=== PATIENT | female | born 1965 | race Caucasian/White ===

== ENCOUNTER → 2018-02-04 12:45 | Outpatient (CLI) | payer OTHER, SELFPAY | PROVIDERS: Family Provider Family Medicine; PCP Family Medicine; Visit Provider Family Medicine | DX: N92.6 Irregular menstruation, unspecified (principal) | CPT/HCPCS: 76830; 93976 ==

== ENCOUNTER → 2018-02-14 09:57 | Outpatient (CLI) | payer OTHER, SELFPAY ==
[2018-02-14 12:49] LABS: Thyroid Stim Hormone (TSH) 1.58 uIU/mL (0.358-3.74)
== END ==
PROVIDERS: Family Provider Family Medicine; PCP Family Medicine; Visit Provider Family Medicine
DX: R63.5 Abnormal weight gain (principal)
CPT/HCPCS: 36415; 84443

== ENCOUNTER 2018-03-08 05:44 | Day surgery (SDC) | payer OTHER, SELFPAY ==
[2018-03-08 06:05] VITALS: BP 112/69; PULSE 70; RESP 16; TEMP 36.4; O2SAT 99; BMI 23.3
[2018-03-08 06:20] LABS: Internal QC Validated? YES +Cl - CLEAR BKGD; Pregnancy, Urine Negative Negative
--- NOTE | 2018-03-08 06:43 | HP.PCM_ITS ---
Past Medical/Surgical History - Planned Operation Planned Operative Procedure/s: COLONOSCOPY Date of Operative Procedure: 03/08/18 Permit Signed: No S.O.S: No Is This Patient Having a Total Joint: No - Previous Hospitalizations/Surgeries HX of Surgeries: BACK SURGERY. APPENDECTOMY Any Problems With Anesthesia: No You/Your Family Experience Fever (Hyperthermia) With Anes: No Cholinesterase deficiency: No - Cardiovascular Hx Chest Pain within Last 2 months: No Hx of Irregular Heartbeat and/or Afib: No Hx Heart Attack: No Hx Congestive Heart Failure: No Hx Rheumatic Fever: No Hx Hypertension: No Hx Internal Defibrillator: No Hx Pacemaker: No Hx Cardiac Catheterization: No Hx Cardiac Surgery/Stents/Etc.: No Hx Stress Test: No HX Edema: No Hx Pain in Legs when Walking/Leg Cramps: No - Respiratory Chronic Cough: No HX of Shortness of Breath: No Hoarseness: No Hx Chronic Obstructive Pulmonary Disease (COPD): No Hx Asthma: No Hx Emphysema: No Hx Sleep Apnea: No Hx Oxygen Use at Home: No Hx Respiratory Tract Infection/Cold (presently): No Do You Snore Loudly (louder than talking or can be heard): Yes Do You Often Feel Tired/ Fatigued/ Sleepy Dring Daytime?: No Has Anyone Observed You Stop Breathing During Sleep?: No Result (for STOP score): Negative Hx Smoking: Yes - RARE/ SOCIAL Smoking Status: Current some day smoker - Gastrointestinal Hx Gastroesophageal Reflux: No Hx Gastrointestinal Disorders: No Hx Gastrointestinal Bleed: No Hx Ulcer: No Hx Hiatal Hernia: No Difficulty Chewing/Swallowing: No Recent Onset of Swallowing Problems: No Special diet followed at home: No Hx Unplanned Weight Loss of 20#: No HX Unplanned Weight Gain of 20#: No - Neurological Hx Seizures: No HX Syncope/Blackout Spells/Unconsciousness: No Hx CVA/Stroke: No Hx Transient Ischemic Attacks (TIA): No Hx Multiple Sclerosis: No Hx Parkinson's Disease: No Hx Head/Neck Injury: No Hx Headaches: No Hx Back Injury/Pain: Yes - HX BACK SURGERY Recent Onset of Speech Difficulty: No Restless Legs: Yes - SOMETIMES Does patient have nerve stimulator: No Patient instructed to have device shut off: No Rep notified?: No - Blood Disorder Hx Leukemia: No Bleeding Tendencies: No Hx Deep Vein Thrombosis: No Hx High Cholesterol: No Blood Transmitted Disease: No Hx Hepatitis: No Hx Cirrhosis: No Hx Anemia: No Hx Blood Disorders: No - Reproduction : No Is Patient Lactating: No Hx Hysterectomy: No Hx Tubal Ligation: No Are You Post Menopause: No Pt Instructed Not To Have Any Sex From Now Until Surgery: Yes - Genitourinary Hx Renal Disease: No - Musculoskeletal Hx Arthritis: No Hx Rheumatoid Arthritis: No Hx Gout: No Recent Onset of an Orthopedic Problem: No - Endocrine Hx Diabetes: No Thyroid Disease: No Hx Steroid Therapy: No - Psycho/Social Hx Substance Use: No Hx Alcohol Use: Yes - WEEKENDS/ 12 PACK Hx Anxiety: No Hx Depression: No Mental Illness: No Hx Dementia: No - Miscellaneous Hx Cancer: No Recent Exposure to Contagious Disease: No Active MRSA: No Hx of C-Diff: No Any Loose Teeth: No - CROWN Allergies No Known Allergies Allergy (Verified 03/05/18 11:15) Maternal Family History: Family History (Last Reviewed 02/01/18 @ 12:12 by Kev Ortiz DO) Mother Hypertension Pacemaker No pertinent history - Discharge Is Pt Admitted From a Long-Term, or a [facility]: No Who Could Help: DAUGHTER After D/C, Where Do you Plan to Go: Return Home Patient Problems: Active and Suspected Problems (Last Reviewed 02/01/18 @ 12:12 by Kev Ortiz DO) Screening for colon cancer (Acute) - Physical Exam General: Alert, Oriented x3, Cooperative, No apparent distress HEENT: Atraumatic Lungs: Normal air movement Cardiovascular: Regular rate Abdomen: Soft, Non Tender, Non-Distended Extremities: No clubbing, No cyanosis, No edema Skin: No rashes Neurological: Cranial nerves II-XII grossly intact Vital Signs Temp Pulse Resp BP Pulse Ox 97.6 F L 70 16 112/69 99 03/08/18 06:05 03/08/18 06:05 03/08/18 06:05 03/08/18 06:05 03/08/18 06:05 Oxygen Delivery Method Room Air Weight: 157 lb 10.088 oz Body Mass Index (BMI) 23.3 Laboratory Tests Past 24 Hrs 03/08/18 05:52 Urine Test Negative Assessment/Plan All Active Problems (Last Reviewed 02/01/18 @ 12:12 by Kev Ortiz DO) Screening for colon cancer (Acute) 52 y/o F for screening colonoscopy Pt reports thais prep well and it is clear, denies hx of abd pain, +daily BM no bld, denies FH of colon cancer-- Plan for colonoscopy with possible biopsy- procedure explained and pt had no further questions. Surgery Risks - Colonoscopy I discussed with the patient the risks of the procedure: Yes Risks Include but are not Limited To: Risks include but are not limited to: Bleeding, perforation requiring further surgery, inability to complete colonoscopy requiring barium enema.
--- NOTE | 2018-03-08 07:00 | COLBX_PTH ---
PATIENT: KEVIN DE LEON LOC: EN U#:[id number] AGE/SX: 52/F ROOM: RE03/08/[address]: Dr. Raeann Rose MD : 1965 BED: DIS: 03/08/2018 SPEC #: [id number] RECD: 03/08/18 10:06 STATUS: RORY SHA #: [id number] ALISSA: 03/08/18 07:[address]: Raeann Rose DEPT: SURGICAL PATHOLOGY RECD BY: Maximo Sage ENTERED: 03/08/18 10:53 SP TYPE: COLON BX OTHR DR: Dr. Kev Ortiz, DO Tissues: A - Ascending colon B - Rectum, NOS Procedures: Surgery Specimen Level IV HEADER OPERATION: Colonoscopy ? open access (MAC) PRE-OP DIAGNOSIS: Screening TISSUE SUBMITTED: A ? Biopsy polyps ascending colon, B ? Biopsy polyp proximal rectum MICROSCOPIC DIAGNOSIS A. Ascending colon polyp, biopsy: Fragments of tubular adenoma. 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 B. Proximal rectum polyp, biopsy: Fragments of colonic mucosa with pigment laden macrophages consistent with melanosis coli. Negative for adenomatous changes. AVELINO:farhat 03/11/18 MICROSCOPIC DESCRIPTION Slides are reviewed. GROSS DESCRIPTION A - Received in fixative is one container labeled with the patient's name and designated polyp ascending colon. The specimen consists of multiple fragments of brownish soft tissue that in aggregate measure 1 x 0.6 x 0.1 cm. The specimen is totally submitted in one cassette. B - Received in fixative is one container labeled with the patient's name and designated biopsy polyp proximal rectum. The specimen consists of multiple fragments of aaron-brownish soft tissue that in aggregate measure 1 x 0.5 x 0.1 cm. The specimen is totally submitted in one cassette. / AVELINO:farhat 03/08/18 TC:1 CPT: 41608 x2
[2018-03-08 07:53] VITALS: BP 101/66; BP 112/69; RESP 85; TEMP 36.4; O2SAT 100
[2018-03-08 08:00] VITALS: BP 107/65; BP 112/69; PULSE 76; RESP 16; O2SAT 100
--- NOTE | 2018-03-08 08:01 | OP.ENDO_ITS ---
Patient Name: Martha Dias Procedure Date: 03/08/2018 6:39 AM Date of : 1965 Age: 52 Procedure: Colonoscopy Indications: Screening for colorectal malignant neoplasm Providers: Raeann Rose MD Referring MD: eKv Ortiz Medicines: Monitored Anesthesia Care Patient Profile: Last Colonoscopy: none. The patient's first colonoscopy is today. Complications: No immediate complications. Procedure: Pre-Anesthesia Assessment: - Prior to the procedure, a History and Physical was performed, and patient medications and allergies were reviewed. The patient's tolerance of previous anesthesia was also reviewed. The risks and benefits of the procedure and the sedation options and risks were discussed with the patient. All questions were answered, and informed consent was obtained. Prior Anticoagulants: The patient has taken no previous anticoagulant or antiplatelet agents. ASA Grade Assessment: II - A patient with mild systemic disease. After reviewing the risks and benefits, the patient was deemed in satisfactory condition to undergo the procedure. After I obtained informed consent, the scope was passed under direct vision. Throughout the procedure, the patient's blood pressure, pulse, and oxygen saturations were monitored continuously. The pediatric colonoscope was introduced through the anus and advanced to the cecum, identified by the ileocecal valve. The colonoscopy was somewhat difficult due to a tortuous colon. Successful completion of the procedure was aided by changing the patient to a supine position and applying abdominal pressure. The patient tolerated the procedure well. The quality of the bowel preparation was good. Scope In: 7:03:01 AM Scope Withdrawal Time 0 hours 20 minutes 59 seconds Scope Out: 7:47:18 AM Total Procedure Duration Time 0 hours 44 minutes 17 seconds Findings: The perianal and digital rectal examinations were normal. A diffuse area of melanosis was found in the entire colon. Three sessile polyps were found in the rectum (1) and ascending colon (2). The polyps were less than 5 mm in size. These polyps were removed with a cold biopsy forceps. Resection and retrieval were complete. Estimated blood loss was minimal. Impression: - Melanosis in the colon. - Three less than 5 mm polyps in the rectum and in the ascending colon, removed with a cold biopsy forceps. Resected and retrieved. Recommendation: - Repeat colonoscopy in 3 - 5 years for surveillance of multiple polyps. - If the pathology report reveals adenomatous tissue, then repeat the colonoscopy for surveillance in 3 years. - Continue present medications. Procedure Code(s): --- Professional --- 65123, Colonoscopy, flexible; with biopsy, single or multiple Diagnosis Code(s): --- Professional --- Z12.11, Encounter for screening for malignant neoplasm of colon K63.89, Other specified diseases of intestine K62.1, Rectal polyp D12.2, Benign neoplasm of ascending colon CPT copyright 2017 [employer]. All rights reserved. The codes documented in this report are preliminary and upon stripper machine operator review may be revised to meet current compliance requirements. MD Raeann Garland MD 03/08/2018 8:01:12 AM This report has been signed electronically. Number of Addenda: 0 Note Initiated On: 03/08/2018 6:39 AM
[2018-03-08 08:03] VITALS: BP 112/69; BP 120/69; PULSE 77; RESP 16; O2SAT 100
[2018-03-08 08:08] VITALS: BP 112/69; BP 119/65; PULSE 76; RESP 16; TEMP 36.7; O2SAT 100
[2018-03-08 08:21] VITALS: BP 112/69
== END 2018-03-08 08:22 | disposition home or self-care (01) ==
LOC: EN 05:44 → AC 05:45
PROVIDERS: Anesthesiology; Family Provider Family Medicine; PCP Family Medicine; Visit Provider Surgery
PROC: 0DJD8ZZ Inspection of Lower Intestinal Tract, Via Natural or Artificial Opening Endoscopic (ICD-10-PCS; CPT 45378; principal; 2018-03-08 06:55)
DX: Z12.11 Encounter for screening for malignant neoplasm of colon (principal); D12.2 Benign neoplasm of ascending colon; K63.5 Polyp of colon; K63.89 Other specified diseases of intestine; G25.81 Restless legs syndrome; F17.200 Nicotine dependence, unspecified, uncomplicated
CPT/HCPCS: 45380; 81025; 88305; J7120

== ENCOUNTER → 2018-05-29 12:01 | Outpatient (CLI) | payer OTHER, SELFPAY ==
[2018-05-02 14:20] VITALS: BMI 22.3
--- NOTE | 2018-05-29 12:03 | BI_ITS ---
MAMMOGRAPHY - BILATERAL SCREENING REASON FOR EXAM: Female, 53 years old. Routine annual screening examination. PERTINENT HISTORY: Aunt with breast cancer. TECHNIQUE: Digital bilateral breast iwona (3D mammographic acquisition) in the CC and MLO projections. 2-D mediolateral oblique (MLO) and craniocaudad (CC) views of both breasts were obtained. CAD: Full Field Digital Mammography with Computer Added Detection was performed. COMPARISON: Comparison is made with prior outside examination dated July 14, 2016. FINDINGS: Breast Composition: The breasts are heterogeneously dense, which may obscure small masses. There are no dominant masses or suspicious calcifications. No other significant abnormalities are identified. There has been no significant change since the prior study. BI/SCREENING MAMM (CAD), BILAT IMPRESSION: Stable bilateral screening mammogram. Yearly follow-up mammogram recommended. (A) ASSESSMENT CATEGORY: BIRADS Category 1: Negative. A letter regarding these results will be sent to the patient by the facility within 30 days. Approximately 10% of breast cancers are not detected by mammography. A normal mammogram should not delay biopsy of a clinically suspicious abnormality. [id number] Electronically Signed: Wes Estevez MD at 14:06 EST Tel [phone], Service support ,
--- OUTSIDE RECORDS SUMMARY | 2018-07-15 15:33 | XMS RPT_ITS ---
:1965 Author Organization OHIP Support Name Relationship Address Phone BARRETTE Unavailable [address] + [place] [address] HALEY, DEVIKA Unavailable [address] + [place] [address] ANA DIASLIE Unavailable Unavailable + [place] [address] BARRETTE Unavailable [address] + [place] [address] HALEY, DEVIKA Unavailable [address] + [place] [address] HALEYANA REYNOLDSLIE Unavailable . + [place] [address] BARRETTE Unavailable [address] + [place] [address] HALEY, DEVIKA Unavailable [address] + [place] [address] HALEYANA REYNOLDSLIE Unavailable Unavailable + BARRETTE Unavailable [address] + [place] [address] HALEY, DEVIKA Unavailable [address] + [place] [address] HALEY, ZULEMA Unavailable . + ., [place] . BARRETTE Unavailable [address] + [place] [address] HALEY, DEVIKA Unavailable [address] + [place] [address] HALEYANA REYNOLDSLIE Unavailable Unavailable + BARRETTE Unavailable [address] + [place] [address] HALEY, DEVIKA Unavailable [address] + [place] [address] HALEY, ZULEMA Unavailable Unavailable + BARRETTE Unavailable [address] + [place] [address] HALEY, DEVIKA Unavailable [address] + [place] [address] HALEY, ZULEMA Unavailable Unavailable + BARRETTE Unavailable . + [place] . HALEY, DEVIKA Unavailable [address] + [place] [address] HALEY, ZULEMA Unavailable Unavailable + BARRETTE Unavailable / + [place] . HALEY, DEVIKA Unavailable [address] + [place] [address] BARRETTE Unavailable / + [place] . HALEY, DEVIKA Unavailable [address] + [place] [address] Care Team Providers Name Role Phone Kev Ortiz Attending Unavailable Brown, Kev Primary Care Unavailable Eddi Calderon TERRITORY SALES REPRESENTATIVE-C Attending Unavailable Brown, Kev Referring Unavailable Brown, Kev Attending Unavailable Brown, Kev Referring Unavailable Brown, Kev Primary Care Unavailable Nurse, Surgery Attending Unavailable Brown, Kev Referring Unavailable Brown, Kev Attending Unavailable Brown, Kev Referring Unavailable Brown, Kev Primary Care Unavailable Eddi Calderon TERRITORY SALES REPRESENTATIVE-C Attending Unavailable Eddi Calderon TERRITORY SALES REPRESENTATIVE-C Referring Unavailable Brown, Kev Primary Care Unavailable Brown, Kev Attending Unavailable Brown, Kev Referring Unavailable Brown, Kev Primary Care Unavailable Robotham, Raeann Attending Unavailable Robotham, Raeann Referring Unavailable Brown, Kev Primary Care Unavailable Robotham, Raeann Attending Unavailable Robotham, Raeann Referring Unavailable Brown, Kev Primary Care Unavailable Robotham, Raeann Consulting Unavailable Brown, Kev Attending Unavailable Brown, Kev Referring Unavailable PROBLEMS PROBLEMS DATE TYPE CONDITION / CODE ATTENDING STATUS SOURCE 06/27/2018 Unknown Z79.899 - Other Eddi Calderon Active [facility] TERRITORY SALES REPRESENTATIVE-C Community (current) drug Hospital therapy / Repository Z79.899(ICD-10) 06/27/2018 Unknown F50.81 - Binge Eddi Calderon Active [facility] eating disorder / TERRITORY SALES REPRESENTATIVE-C Community F50.81(ICD-10) Hospital Repository 03/13/2018 Unknown Z12.11 - Encounter Rose Active [facility] for screening for Raeann [facility] malignant neoplasm [facility] colon / Repository Z12.11(ICD-10) 02/01/2018 Unknown N92.6 - Irregular Kev Ortiz Active [facility] menstruation, Community unspecified / Hospital N92.6(ICD-10) Repository 02/01/2018 Unknown Z23 - Encounter Kev Ortiz Active [place] for immunization / [facility] Z23(ICD-10) Hospital Repository 02/01/2018 Unknown R63.5 - Abnormal BrownKev Active [facility] weight gain / Community R63.5(ICD-10) Hospital Repository PROCEDURES PROCEDURES No Procedure Records FoundRESULTS RESULTS INTERNAL MEDICINE Observed: 06/28/2018 Status: F Source: [facility] OFFICE VISIT 8:44 AM [facility] REPOSITORY [facility] [address] [place] [address] [place] [address] OFFICE VISIT Date of Service: 06/27/18 MR#: [id number] Acct: [id number] Name: MARTHA DIAS Rep #: [id number] : 1965 Provider: dEdi Calderon NP Age/Sex: 53/F Location: [facility] Status: Signed Intake Vital Signs06/27/18 Body Mass Index (BMI) 22.3 06/27/18 Height 5 ft 9 in 06/27/18 Weight: 159 lb 06/27/18 Body Mass Index (BMI) 23.4 06/27/18 Blood Pressure 133/84 H Intake Visit Reasons: 6 WK FU Chief Complaint: 6 WK FU - Meds Is patient in pain?: No Allergies No Known Allergies Allergy (Verified 06/27/18 09:53) Medications norgestimate-ethinyl estradiol 0.18 mg/0.215mg/0.25mg-35 mcg(28)tablet 1 tab PO QDAY #84 tab 02/01/18 [Rx Confirmed 06/27/18] lisdexamfetamine 30 mg capsule 30 mg PO DAILY 06/27/18 [History Confirmed 06/27/18] PFSH Medical History Screening for colon cancer (Acute) Family History Mother Hypertension Pacemaker Social History Smoking Status: Current some day smoker alcohol intake: current alcohol intake frequency: holidays/special occasions only substance use type: does not use what type of physical activity do you participate in: none HPI HPI Chief Complaint: 6 WK FU - Meds Details: MARTHA DIAS, is a 53 F who presents to the office today for a follow-up of her binge eating disorder. She has a past medical history as listed above. The patient was previously started on Adderall due to her insurance not covering Vyvanse for her binge eating disorder. The patient states that the first 2 weeks she did well on the Adderall and it seemed to help with her binging, however shortly after it was no longer effective and that she still has daily episodes of binge eating. Her weight has increased by 8 pounds since a month ago as well. She denies any adverse reaction to the stimulant medication and states that other than it not working she tolerated it well. She denies any other acute concerns at this time. The patient otherwise denies any fever, chills, nausea, vomiting, shortness of breath, chest pain or pressure, palpitations, orthopnea, lower extremity edema, syncope or presyncopal episodes. ROS Const Constitutional: No chills, fatigue, fever(s), frequent falls, malaise, weakness, sleep problems or change in appetite Eyes Eyes: No blurry vision, change in vision, double vision, discharge or visual disturbances ENT ENT: No abnormal hearing, ear pain, ear pressure, tinnitus or dizziness/vertigo Resp Respiratory: No cough, shortness of breath or wheezing Cardio Cardiology: No chest pain at rest, chest pain with exertion, shortness of breath, dyspnea on exertion, generalized swelling, irregular heart rhythm, lightheadedness, orthopnea, fast heart rate or palpitations Gastro GI: No abdominal pain, change in bowel habits, constipation, diarrhea, nausea/dyspepsia or vomiting Genitourinary-Female: No difficulty urinating, burning urination, painful urination, urinary incontinence, urinary frequency, urinary urgency, urinary hesitancy, urinary retention, Frequent nighttime urination/ nocturia, sexual problems, genital lesions, abnormal vaginal bleeding, pelvic pain, vaginal dryness, vaginal odor or Vaginal Itching Musc Musculoskeletal: No joint pain, back pain, joint swelling, limited range of motion, numbness, tingling or muscle weakness Skin Skin: No change in skin color, itching, rash or wounds Breast Breast: No breast lump or breast pain Neuro Neurology: No frequent falls, weakness, visual disturbances, abnormal hearing, numbness, tingling, unsteady gait/balance, dizziness, loss of vision or memory loss Psych Psychiatric: No change in appetite, No memory loss, No anxiety, No depression, No Thoughts of harming yourself/Others Endo Endocrine: No fatigue, heat intolerance, increased thirst/drinking, increased hunger or increased urination Aller/Imm Allergy/Immunologic: No wheezing, itchy eyes or seasonal allergy symptoms Lukas/Lymp Hematologic/Lymphatic: No easy bleeding, easy bruising or enlarged lymph nodes Exam Const General: cooperative, healthy appearing Nutritional Appearance: average body habitus Orientation: oriented x3 Eyes General: appearance normal, both eyes and all related structures Neck Thyroid: thyroid normal Resp Effort AND Inspection: normal respiratory effort Auscultation: Bilateral: Clear to Auscultation Cardio Rate: regular rate Rhythm: regular rhythm GI Inspection: normal to inspection Musc Musculoskeletal: No muscle weakness Skin Hair: normal Nails: normal Extrem General: no clubbing, cyanosis or edema Psych Appearance: grossly normal Affect: anxious affect Speech and Movement: speech and movement normal Thought Process: normal Assessment AND Plan Problems 1. Binge-eating disorder, moderate F50.81 2. Long-term use of high-risk medication Z79.899 Plan Patient failed Adderall therapy and therefore will be placed back on Vyvanse for her binge eating disorder. A long-term controlled substance agreement was signed and a standing order for random drug screenings was placed as well. Drug screen done today was consistent with Adderall use. Do not suspect any signs of abuse or diversion at this time. Patient is aware that she will need to follow-up at least monthly while on this medication and may be called for random pill counts and/or random urine drug tests. This note was generated with [employer]up[employer]ediye[employer] software. It may contain incorrect words, spelling, and punctuation that were not noted in checking the note before signing. Orders Orders: Medications New: Discontinued: dextroamphetamine-amphetamine 20 mg (Adderall XR) [id number] mg PO QAM 30 caps 0RF d Reason: Order Changed Plan Detail Follow Up 1 month or sooner if needed Coding Level of Care Code Off vis,est,level 3 Diagnoses Binge-eating disorder, moderate F50.81 Long-term use of high-risk medication Z79.899 06/28/18 0844 <Electronically signed by Eddi MOCK> Date Eddi MOCK Cosigner Signature: Date (if applicable) CC: URINE DRUG SCREEN Collected: 06/27/2018 Status: F Source: [facility] (VISTA) 10:41 AM [facility] [place] REPOSITORY Order Comment: Comments: Standing order Comments: Standing order List of Drugs Taken or Suspected? UNK TYPE CODE TESTS RESULT OUT OF RANGE REFERENCE UNITS LAB L505.0075 TO BE Normal CONFIRMED Result Comment: CONFIRMATORY TESTING FOR ALL POSITIVE URINE DRUG SCREEN RESULTS WILL ONLY BE SENT OUT UPON PHYSICIAN ORDER. VISTA Urine Drug Screen methods provide only preliminary analytical test results. A more specific alternate chemical method must be used in order to obtain a confirmed analytical result. Gas chromatography/mass spectrometery (GC/MS) is the preferred confirmatory method. Clinical consideration and professional judgement should be applied to any drug of abuse test result, particularly when preliminary positive results are used. URINE TCA TESTING MUST BE ORDERED SEPARATELY. USE TEST MNEMONIC: [facility] LAB L505.5005 VISTA UDS PH 5 Normal LAB L505.5015 <1000 High ng/mL AMPHETAMINES POSITIVE LAB L505.5025 < 200 ng/mL BARBITIURATES Normal NEGATIVE LAB L505.5035 < 200 ng/mL BENZODIAZIPINE Normal NEGATIVE LAB L505.5045 < 300 ng/mL COCAINE Normal NEGATIVE LAB L505.5055 < 500 ng/mL ECSTACY Normal NEGATIVE LAB L505.5065 < 300 ng/mL METHADONE Normal NEGATIVE LAB L505.5075 < 300 ng/mL OPIATES Normal NEGATIVE LAB L505.5085 < 25 ng/mL PCP Normal NEGATIVE LAB L505.5095 < 50 ng/mL THC Normal NEGATIVE Performed By: #### L505.5000 #### [facility] [address] [place], [address] SCREENING MAMM (CAD), Observed: 05/29/2018 Status: F Source: [facility] 12:03 PM [facility] REPOSITORY [facility] Services [address] [place] [address] SCREENING MAMM (CAD), BILAT MR#: [id number] Acct: [id number] Name: MARTHA DIAS Rep #: [id number] : 1965 F 53 From: Wes Esteevz MD PCP: Kev Ortiz DO Status: REG CLI Study: SCREENING MAMM (CAD), BILAT Date of Exam: 05/29/18 Exam# [id number] Ordering Dr: Kev Ortiz DO MAMMOGRAPHY - BILATERAL SCREENING REASON FOR EXAM: Female, 53 years old. Routine annual screening examination. PERTINENT HISTORY: Aunt with breast cancer. TECHNIQUE: Digital bilateral breast iwona (3D mammographic acquisition) in the CC and MLO projections. 2-D mediolateral oblique (MLO) and craniocaudad (CC) views of both breasts were obtained. CAD: Full Field Digital Mammography with Computer Added Detection was performed. COMPARISON: Comparison is made with prior outside examination dated July 14, 2016. FINDINGS: Breast Composition: The breasts are heterogeneously dense, which may obscure small masses. There are no dominant masses or suspicious calcifications. No other significant abnormalities are identified. There has been no significant change since the prior study. BI/SCREENING MAMM (CAD), BILAT IMPRESSION: Stable bilateral screening mammogram. Yearly follow-up mammogram recommended. (A) ASSESSMENT CATEGORY: BIRADS Category 1: Negative. A letter regarding these results will be sent to the patient by the facility within 30 days. Approximately 10% of breast cancers are not detected by mammography. A normal mammogram should not delay biopsy of a clinically suspicious abnormality. [id number] Electronically Signed: Wes Estevez MD at 14:06 EST Tel [phone], Service support , CC: Kev Ortiz DO Clinical Researcher: Signed INTERNAL MEDICINE Observed: 05/02/2018 Status: F Source: [facility] OFFICE VISIT 2:57 PM [facility] [address] [place] [address] [place] [address] OFFICE VISIT Date of Service: 05/02/18 MR#: [id number] Acct: [id number] Name: MARTHA DIAS Rep #: [id number] : 1965 Provider: Kev Ortiz DO Age/Sex: 52/F Location: [facility] Status: Signed Intake Vital Signs05/02/18 Height 5 ft 9 in 05/02/18 Weight: 151 lb 05/02/18 Body Mass Index (BMI) 22.3 05/02/18 Blood Pressure 121/76 H Intake Visit Reasons: Eating disorder Chief Complaint: Eating alot. Needs something to help get control Is patient in pain?: No Allergies No Known Allergies Allergy (Verified 05/02/18 14:26) Medications norgestimate-ethinyl estradiol 0.18 mg/0.215mg/0.25mg-35 mcg(28)tablet 1 tab PO QDAY #84 tab 02/01/18 [Rx Confirmed 05/02/18] lisdexamfetamine 30 mg capsule 30 mg PO QAM #30 cap 05/02/18 [Rx Confirmed 05/02/18] PFSH Medical History Screening for colon cancer (Acute) Family History Mother Hypertension Pacemaker Social History Smoking Status: Current some day smoker alcohol intake: current alcohol intake frequency: holidays/special occasions only substance use type: does not use what type of physical activity do you participate in: none HPI HPI Chief Complaint: Eating alot. Needs something to help get control Details: MARTHA DIAS, is a 52 F who presents to the office today for problems with an eating disorder. She has had this for years she has taken multiple laxatives and his taking medics as a purging method to control this. She is taken enough laxatives that on a colonoscopy the endoscopist suggested she needs to get help because of the melanosis coli that was being seen. She has a period between usually 11 in the morning and 3 or 4 in the afternoon where she cannot stop eating she will eat too big max fish sandwich to a large order of fries and still not feel like she is full and then she feels like she either needs to have a bowel movement tore or regurgitate. ROS Const Constitutional: Positive for change in appetite (Eats all the time) and weight change (Gain); no chills, fatigue, fever(s), frequent falls, malaise, weakness or sleep problems Eyes Eyes: No blurry vision, change in vision, double vision, discharge or visual disturbances ENT ENT: No abnormal hearing, ear pain, ear pressure, tinnitus or dizziness/vertigo Resp Respiratory: No cough, shortness of breath or wheezing Cardio Cardiology: No chest pain at rest, chest pain with exertion, shortness of breath, dyspnea on exertion, generalized swelling, irregular heart rhythm, lightheadedness, orthopnea, fast heart rate or palpitations Gastro GI: No abdominal pain, change in bowel habits, constipation, diarrhea, nausea/dyspepsia or vomiting Genitourinary-Female: No difficulty urinating, burning urination, painful urination, urinary incontinence, urinary frequency, urinary urgency, urinary hesitancy, urinary retention, Frequent nighttime urination/ nocturia, sexual problems, genital lesions, abnormal vaginal bleeding, pelvic pain, vaginal dryness, vaginal odor or Vaginal Itching Musc Musculoskeletal: No joint pain, back pain, joint swelling, limited range of motion, numbness, tingling or muscle weakness Skin Skin: No change in skin color, itching, rash or wounds Breast Breast: No breast lump or breast pain Neuro Neurology: No frequent falls, weakness, visual disturbances, abnormal hearing, numbness, tingling, unsteady gait/balance, dizziness, loss of vision or memory loss Psych Psychiatric: Positive for change in appetite (Eats all the time), No memory loss, No anxiety, No depression, No Thoughts of harming yourself/Others Endo Endocrine: No fatigue, heat intolerance, increased thirst/drinking, increased hunger or increased urination Aller/Imm Allergy/Immunologic: No wheezing, itchy eyes or seasonal allergy symptoms Lukas/Lymp Hematologic/Lymphatic: No easy bleeding, easy bruising or enlarged lymph nodes Exam Const General: cooperative, healthy appearing Nutritional Appearance: average body habitus Orientation: oriented x3 Eyes General: appearance normal, both eyes and all related structures Neck Thyroid: thyroid normal Resp Effort AND Inspection: normal respiratory effort Auscultation: Bilateral: Clear to Auscultation Cardio Rate: regular rate Rhythm: regular rhythm GI Inspection: normal to inspection Musc Musculoskeletal: No muscle weakness Skin Hair: normal Nails: normal Extrem General: no clubbing, cyanosis or edema Psych Appearance: grossly normal Affect: anxious affect Speech and Movement: speech and movement normal Thought Process: normal Assessment AND Plan 1. Eating disorder F50.9 2. Binge-eating disorder, moderate F50.81 Plan This patient was here to receive help for her binge eating disorder. She fulfills all the criteria for binge eating disorder of moderate to severe type. Vyvanse was prescribed I talked about the side effects and the potential for misuse. She is to let me know if she has any difficulties with the medication otherwise follow-up appointment will be after the first of the year. Plan Detail Other Orders Orders: Other Medications New: Follow Up 6 Weeks Coding Level of Care Code Off vis,est,level 3 Diagnoses Eating disorder F50.9 Binge-eating disorder, moderate F50.81 05/02/18 9802 <Electronically signed by Kev Ortiz DO> Date Kev Ortiz DO Cosigner Signature: Date (if applicable) CC: OPERATIVE REPORT - Observed: 03/08/2018 Status: F Source: [facility] END[facility]COPY 8:01 AM [facility] Medical Records Department [address] [place] [address] Operative Report - Endoscopy MR#: [id number] Acct: [id number] Name: MARTHA DIAS Rep #: [id number] : 1965 52 From: Raeann Rose MD PCP: Kev Ortiz, DO Status: REG [facility] Patient Name: Martha Dias Procedure Date: 03/08/2018 6:39 AM Date of : 1965 Age: 52 Procedure: Colonoscopy Indications: Screening for colorectal malignant neoplasm Providers: Raeann Rose MD Referring MD: Kev Ortiz Medicines: Monitored Anesthesia Care Patient Profile: Last Colonoscopy: none. The patient's first colonoscopy is today. Complications: No immediate complications. Procedure: Pre-Anesthesia Assessment: - Prior to the procedure, a History and Physical was performed, and patient medications and allergies were reviewed. The patient's tolerance of previous anesthesia was also reviewed. The risks and benefits of the procedure and the sedation options and risks were discussed with the patient. All questions were answered, and informed consent was obtained. Prior Anticoagulants: The patient has taken no previous anticoagulant or antiplatelet agents. ASA Grade Assessment: II - A patient with mild systemic disease. After reviewing the risks and benefits, the patient was deemed in satisfactory condition to undergo the procedure. After I obtained informed consent, the scope was passed under direct vision. Throughout the procedure, the patient's blood pressure, pulse, and oxygen saturations were monitored continuously. The pediatric colonoscope was introduced through the anus and advanced to the cecum, identified by the ileocecal valve. The colonoscopy was somewhat difficult due to a tortuous colon. Successful completion of the procedure was aided by changing the patient to a supine position and applying abdominal pressure. The patient tolerated the procedure well. The quality of the bowel preparation was good. Scope In: 7:03:01 AM Scope Withdrawal Time 0 hours 20 minutes 59 seconds Scope Out: 7:47:18 AM Total Procedure Duration Time 0 hours 44 minutes 17 seconds Findings: The perianal and digital rectal examinations were normal. A diffuse area of melanosis was found in the entire colon. Three sessile polyps were found in the rectum (1) and ascending colon (2). The polyps were less than 5 mm in size. These polyps were removed with a cold biopsy forceps. Resection and retrieval were complete. Estimated blood loss was minimal. Impression: - Melanosis in the colon. - Three less than 5 mm polyps in the rectum and in the ascending colon, removed with a cold biopsy forceps. Resected and retrieved. Recommendation: - Repeat colonoscopy in 3 - 5 years for surveillance of multiple polyps. - If the pathology report reveals adenomatous tissue, then repeat the colonoscopy for surveillance in 3 years. - Continue present medications. Procedure Code(s): --- Professional --- 78666, Colonoscopy, flexible; with biopsy, single or multiple Diagnosis Code(s): --- Professional --- Z12.11, Encounter for screening for malignant neoplasm of colon K63.89, Other specified diseases of intestine K62.1, Rectal polyp D12.2, Benign neoplasm of ascending colon CPT copyright 2017 [employer]. All rights reserved. The codes documented in this report are preliminary and upon marketing education teacher review may be revised to meet current compliance requirements. MD Raeann Garland MD 03/08/2018 8:01:12 AM This report has been signed electronically. Number of Addenda: 0 Note Initiated On: 03/08/2018 6:39 AM 03/08/18 0801 Date Raeann Rose MD Cosigner Signature: Date (if indicated) CC: Kev Ortiz DO; Raeann Rose MD Date Dictated: 03/08/18 0639 Date Transcribed: Clinical Researcher: TR Signed COLON BIOPSY (CHOOSE Observed: 03/08/2018 Status: F Source: [facility]) 7:00 AM [facility] REPOSITORY Patient: MARTHA DIAS : 1965 (52/F) Acct Num: [id number] Phys: Reaann Rose MD Unit Num: [id number] Loc: EN Specimen: [id number] Received: 03/08/18 - 1006 Spec Type: COLON BX TISSUES TISSUES: A. Ascending colon B. Rectum, NOS GROSS DESCRIPTION A - Received in fixative is one container labeled with the patient's name and designated polyp ascending colon. The specimen consists of multiple fragments of brownish soft tissue that in aggregate measure 1 x 0.6 x 0.1 cm. The specimen is totally submitted in one cassette. B - Received in fixative is one container labeled with the patient's name and designated biopsy polyp proximal rectum. The specimen consists of multiple fragments of aaron-brownish soft tissue that in aggregate measure 1 x 0.5 x 0.1 cm. The specimen is totally submitted in one cassette. / SJ:farhat 03/08/18 TC:1 CPT: 31859 x2 HEADER OPERATION: Colonoscopy open access (MAC) PRE-OP DIAGNOSIS: Screening TISSUE SUBMITTED: A Biopsy polyps ascending colon, B Biopsy polyp proximal rectum MICROSCOPIC DESCRIPTION Slides are reviewed. MICROSCOPIC DIAGNOSIS A. Ascending colon polyp, biopsy: Fragments of tubular adenoma. 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 B. Proximal rectum polyp, biopsy: Fragments of colonic mucosa with pigment laden macrophages consistent with melanosis coli. Negative for adenomatous changes. SJ:farhat 03/11/18 Signed Timothy Carter 03/11/18 <signature on file> Performed By: #### PCOLBX #### [facility] [address] [facility]. [place], [place], [address] HISTORY AND PHYSICAL Observed: 03/08/2018 Status: F Source: [place] EXAM 6:43 AM [facility] REPOSITORY [facility] Medical Records Department [address] [place] [address] History and Physical 03/08/18 0639 MR#: [id number] Acct: [id number] Name: MARTHA DIAS Rep #: [id number] : 1965 52 From: Raeann Rose MD PCP: Kev Ortiz DO Status: REG SDC Y Location: [place] [address] Past Medical/Surgical History - Planned Operation Planned Operative Procedure/s: COLONOSCOPY Date of Operative Procedure: 03/08/18 Permit Signed: No S.O.S: No Is This Patient Having a Total Joint: No - Previous Hospitalizations/Surgeries HX of Surgeries: BACK SURGERY. APPENDECTOMY Any Problems With Anesthesia: No You/Your Family Experience Fever (Hyperthermia) With Anes: No Cholinesterase deficiency: No - Cardiovascular Hx Chest Pain within Last 2 months: No Hx of Irregular Heartbeat and/or Afib: No Hx Heart Attack: No Hx Congestive Heart Failure: No Hx Rheumatic Fever: No Hx Hypertension: No Hx Internal Defibrillator: No Hx Pacemaker: No Hx Cardiac Catheterization: No Hx Cardiac Surgery/Stents/Etc.: No Hx Stress Test: No HX Edema: No Hx Pain in Legs when Walking/Leg Cramps: No - Respiratory Chronic Cough: No HX of Shortness of Breath: No Hoarseness: No Hx Chronic Obstructive Pulmonary Disease (COPD): No Hx Asthma: No Hx Emphysema: No Hx Sleep Apnea: No Hx Oxygen Use at Home: No Hx Respiratory Tract Infection/Cold (presently): No Do You Snore Loudly (louder than talking or can be heard): Yes Do You Often Feel Tired/ Fatigued/ Sleepy Dring Daytime?: No Has Anyone Observed You Stop Breathing During Sleep?: No Result (for STOP score): Negative Hx Smoking: Yes - RARE/ SOCIAL Smoking Status: Current some day smoker - Gastrointestinal Hx Gastroesophageal Reflux: No Hx Gastrointestinal Disorders: No Hx Gastrointestinal Bleed: No Hx Ulcer: No Hx Hiatal Hernia: No Difficulty Chewing/Swallowing: No Recent Onset of Swallowing Problems: No Special diet followed at home: No Hx Unplanned Weight Loss of 20#: No HX Unplanned Weight Gain of 20#: No - Neurological Hx Seizures: No HX Syncope/Blackout Spells/Unconsciousness: No Hx CVA/Stroke: No Hx Transient Ischemic Attacks (TIA): No Hx Multiple Sclerosis: No Hx Parkinson's Disease: No Hx Head/Neck Injury: No Hx Headaches: No Hx Back Injury/Pain: Yes - HX BACK SURGERY Recent Onset of Speech Difficulty: No Restless Legs: Yes - SOMETIMES Does patient have nerve stimulator: No Patient instructed to have device shut off: No Rep notified?: No - Blood Disorder Hx Leukemia: No Bleeding Tendencies: No Hx Deep Vein Thrombosis: No Hx High Cholesterol: No Blood Transmitted Disease: No Hx Hepatitis: No Hx Cirrhosis: No Hx Anemia: No Hx Blood Disorders: No - Reproduction : No Is Patient Lactating: No Hx Hysterectomy: No Hx Tubal Ligation: No Are You Post Menopause: No Pt Instructed Not To Have Any Sex From Now Until Surgery: Yes - Genitourinary Hx Renal Disease: No - Musculoskeletal Hx Arthritis: No Hx Rheumatoid Arthritis: No Hx Gout: No Recent Onset of an Orthopedic Problem: No - Endocrine Hx Diabetes: No Thyroid Disease: No Hx Steroid Therapy: No - Psycho/Social Hx Substance Use: No Hx Alcohol Use: Yes - WEEKENDS/ 12 PACK Hx Anxiety: No Hx Depression: No Mental Illness: No Hx Dementia: No - Miscellaneous Hx Cancer: No Recent Exposure to Contagious Disease: No Active MRSA: No Hx of C-Diff: No Any Loose Teeth: No - CROWN Allergies No Known Allergies Allergy (Verified 03/05/18 11:15) Maternal Family History: Family History (Last Reviewed 02/01/18 @ 12:12 by Kev Ortiz DO) Mother Hypertension Pacemaker No pertinent history - Discharge Is Pt Admitted From a Fci, or a Shelter: No Who Could Help: DAUGHTER After D/C, Where Do you Plan to Go: Return Home Patient Problems: Active and Suspected Problems (Last Reviewed 02/01/18 @ 12:12 by Kev Ortiz DO) Screening for colon cancer (Acute) - Physical Exam General: Alert, Oriented x3, Cooperative, No apparent distress HEENT: Atraumatic Lungs: Normal air movement Cardiovascular: Regular rate Abdomen: Soft, Non Tender, Non-Distended Extremities: No clubbing, No cyanosis, No edema Skin: No rashes Neurological: Cranial nerves II-XII grossly intact Vital Signs Temp Pulse Resp BP Pulse Ox 97.6 F L 70 16 112/69 99 03/08/18 06:05 03/08/18 06:05 03/08/18 06:05 03/08/18 06:05 03/08/18 06:05 Oxygen Delivery Method Room Air Weight: 157 lb 10.088 oz Body Mass Index (BMI) 23.3 Laboratory Tests Past 24 Hrs Urine Test Negative Assessment/Plan All Active Problems (Last Reviewed 02/01/18 @ 12:12 by Kev Ortiz DO) Screening for colon cancer (Acute) 52 y/o F for screening colonoscopy Pt reports thais prep well and it is clear, denies hx of abd pain, +daily BM no bld, denies FH of colon cancer-- Plan for colonoscopy with possible biopsy- procedure explained and pt had no further questions. Surgery Risks - Colonoscopy I discussed with the patient the risks of the procedure: Yes Risks Include but are not Limited To: Risks include but are not limited to: Bleeding, perforation requiring further surgery, inability to complete colonoscopy requiring barium enema. 03/08/18 0643 <Electronically signed by Raeann Rose MD> Date Raeann Rose MD Cosigner Signature: Date (if applicable) CC: Kev Ortiz DO; Raeann Rose MD Signed ,URINE Collected: 03/08/2018 Status: F Source: [place] 5:52 AM [facility] REPOSITORY TYPE CODE TESTS RESULT OUT OF REFERENCE UNITS RANGE LAB L400.8000 Negative Normal HCGUQUAL Negative Result Comment: Very dilute urine specimens, as indicated by a low specific gravity, may not contain customer assistance representative levels of hCG. If is still suspected, a first morning urine specimen should be collected 48 hours later and tested. Performed By: #### L400.7600 #### [facility] [address] [facility] [place], [address] THYROID STIM HORMONE Collected: 02/14/2018 Status: F Source: FELA (TSH) 10:04 AM [facility] REPOSITORY TYPE CODE TESTS RESULT OUT OF RANGE REFERENCE UNITS LAB L501.9520 0.358-3.74 uIU/mL Normal TSH 1.58 Performed By: #### L501.9520 #### [facility] [address] [facility] [place], [address] TRANSVAGINAL Observed: 02/04/2018 Status: F Source: FELA NON- 12:48 PM [facility] REPOSITORY [facility] Imaging Services [address] [place] [address] Transvaginal Non- MR#: [id number] Acct: [id number] Name: MARTHA DIAS Rep #: [id number] : 1965 F 52 From: Naveen Degroot MD PCP: Kev Ortiz DO Status: REG CLI Study: Transvaginal Non- Date of Exam: 02/04/18 Exam# [id number] Ordering Dr: Kev Ortiz DO STUDY: ULTRASOUND OF THE FEMALE PELVIS REASON FOR EXAM: Female, 52 years old. Irregular bleeding. LMP: January 15, 2018 TECHNIQUE: Transvaginal TECHNICAL QUALITY: Adequate. COMPARISON: None. FINDINGS: The uterus is anteverted and is in a midline position. The uterus measures 8.1 x 4.5 x 3.5 cm. Normal uterine cervix. The endometrium measures 4 mm in thickness, and is hyperechoic. There is no demonstrated endometrial mass. There is 1.7 cm hypoechoic mass of the anterior uterus consistent with fibroid. I.U.D. - The patient does not have an I.U.D. The right ovary is visualized. The right ovary measures 2.4 x 1.5 x 1.4 cm. There is no right ovarian cyst or ovarian mass. There is no visualized right adnexal mass or complex lesion. There is normal arterial and normal venous vascularity. The left ovary is visualized. The left ovary measures 1.5 x 1.4 x 0.8 cm. There is no left ovarian cyst or ovarian mass. There is no visualized left adnexal mass or complex lesion. There is normal arterial and normal venous vascularity. There is no fluid in the cul-de-sac. US/Transvaginal Non- IMPRESSION: Small uterine fibroid. Electronically Signed: Naveen Degroot MD at 23:53 EDT , Service support , CC: Kev Ortiz DO Clinical Researcher: Signed INTERNAL MEDICINE Observed: 02/01/2018 Status: F Source: [place]EL[place] OFFICE VISIT 12:26 PM [facility] [address] [place] [address] OFFICE VISIT Date of Service: 02/01/18 MR#: [id number] Acct: [id number] Name: MARTHA DIAS Rep #: [id number] : 1965 Provider: Kev Ortiz DO Age/Sex: 52/F Location: [facility] Status: Signed Intake Vital Signs02/01/18 Height 5 ft 8.5 in 02/01/18 Weight: 154 lb 02/01/18 Body Mass Index (BMI) 23.1 02/01/18 Blood Pressure 120/78 Intake Visit Reasons: MED REFILL Chief Complaint: Med refills AND Vag bleeding Is patient in pain?: No Allergies No Known Allergies Allergy (Verified 02/01/18 10:20) Medications norgestimate-ethinyl estradiol 0.18 mg/0.215mg/0.25mg-35 mcg(28)tablet 1 tab PO QDAY #84 tab 02/01/18 [Rx Confirmed 02/01/18] sertraline 50 mg tablet 50 mg PO QDAY #90 tab 02/01/18 [Rx Confirmed 02/01/18] PFSH Family History Mother Hypertension Pacemaker Social History Smoking Status: Current some day smoker alcohol intake: current alcohol intake frequency: holidays/special occasions only substance use type: does not use what type of physical activity do you participate in: none HPI HPI Chief Complaint: Med refills AND Vag bleeding Details: MARTHA DIAS, is a 52 F who presents to the office today for concerns about drinking too much, weight gain, irregular menstrual bleeding, laceration of the right leg. ROS Const Constitutional: No chills, fatigue, fever(s), frequent falls, malaise, weakness, sleep problems or change in appetite Eyes Eyes: No blurry vision, change in vision, double vision, discharge or visual disturbances ENT ENT: No abnormal hearing, ear pain, ear pressure, tinnitus or dizziness/vertigo Resp Respiratory: No cough, shortness of breath or wheezing Cardio Cardiology: No chest pain at rest, chest pain with exertion, shortness of breath, dyspnea on exertion, generalized swelling, irregular heart rhythm, lightheadedness, orthopnea, fast heart rate or palpitations Gastro GI: No abdominal pain, change in bowel habits, constipation, diarrhea, nausea/dyspepsia or vomiting Genitourinary-Female: Positive for abnormal vaginal bleeding (2 weeks almost 3 weeks); no difficulty urinating, burning urination, painful urination, urinary incontinence, urinary frequency, urinary urgency, urinary hesitancy, urinary retention, Frequent nighttime urination/ nocturia, sexual problems, genital lesions, pelvic pain, vaginal dryness, vaginal odor or Vaginal Itching Musc Musculoskeletal: No joint pain, back pain, joint swelling, limited range of motion, muscle weakness, numbness or tingling Skin Skin: No change in skin color, itching, rash or wounds Breast Breast: No breast lump or breast pain Neuro Neurology: No frequent falls, weakness, abnormal hearing, numbness, tingling, unsteady gait/balance, dizziness, loss of vision, memory loss or visual disturbances Psych Psychiatric: No memory loss, No anxiety, No change in appetite, No depression, No Thoughts of harming yourself/Others Endo Endocrine: No fatigue, heat intolerance, increased thirst/drinking, increased hunger or increased urination Aller/Imm Allergy/Immunologic: No wheezing, itchy eyes or seasonal allergy symptoms Lukas/Lymp Hematologic/Lymphatic: No easy bleeding, easy bruising or enlarged lymph nodes Exam Const General: cooperative, healthy appearing Nutritional Appearance: average body habitus Orientation: oriented x3 Eyes General: appearance normal, both eyes and all related structures Neck Thyroid: thyroid normal Resp Effort AND Inspection: normal respiratory effort Auscultation: Bilateral: Clear to Auscultation Cardio Rate: regular rate Rhythm: regular rhythm GI Inspection: normal to inspection Musc Musculoskeletal: No muscle weakness Skin Trauma: laceration (Laceration of the right leg over 48 hrs old) Hair: normal Nails: normal Extrem General: no clubbing, cyanosis or edema Psych Appearance: grossly normal Affect: anxious affect Speech and Movement: speech and movement normal Thought Process: normal Immunizations Boostrix Tdap Performing Provider: Kev Ortiz DO Administered by: Michela Desai on 02/01/18 11:17 Dose Route Admin Location Lot Number Expiration Date [facility] Fisheries Technical Officer 0.5 mL IM Right Buttock [id number] 02/07/18 31373-765-89 [facility] [place] [employer] VIS Given Date VIS Publication Date 01/16/15 01/16/15 Eligibility Eligibility Date Assessment AND Plan 1. Menopausal and perimenopausal disorder N95.9 Plan Transvaginal ultrasound order to evaluate endometrial hyperplasia, she needs to consider stopping the oral contraceptives. Her is considering a vasectomy. 2. Anxiety and depression F41.9; F32.9 Plan She is alone most of the time, and daughter are always away, severe job stress 3. Laceration Plan Old laceration (48) hrs--should have had stitches, she needs Tet tox. 4. Encounter for screening colonoscopy Z12.11 Plan She has never had a screening colonoscopy Orders Referrals: Plan Detail Other Orders Orders: Other Medications New: norgestimate-ethinyl estradiol 0.18 mg/0.215mg/0.25mg-351 tab PO QDAY Kev Ortiz DO mcg(28)tablet Discontinued: Boostrix Tdap (diphth,pertus(acell),tetanus) Disconti0.5 mL IM ONCE NS Z23 Michela nelson Reason: Office Medication has been Documented as frank lanza Coding Level of Care Code Off vis,est,level 4 Diagnoses Menopausal and perimenopausal disorder N95.9 Anxiety and depression F41.9; F32.9 Laceration Encounter for screening colonoscopy Z12.11 02/01/18 1226 <Electronically signed by Kev Ortiz DO> Date Kev Ortiz DO Cosigner Signature: Date (if applicable) CC: ALLERGIES ALLERGIES DATE TYPE / CODE NAME / CODE REACTION SEVERITY SOURCE 06/27/2018 Drug No Known Unknown [place] [facility] Allergy/4160 Allergies/F00 Hospital 44471(SNOMED 9160697(RXNOR Repository CT) M) ENCOUNTERS ENCOUNTERS ADMIT/DISCHARGE ACCOUNT ADMITTING ENCOUNTER LOCATION SOURCE NUMBER CLASS 06/27/2018 [id number] Ambulatory [place] 0 [facility] Hospital ing:MTLAB Repository 06/27/2018/ [id number] Ambulatory BMSBuilding:B [place] 9 8 MS.Counts include 234 beds at the [facility] Hospital Repository 05/29/2018 [id number] Ambulatory [place] 8 [facility] ing:OPBI Repository 05/02/2018/ [id number] Ambulatory BMSBuilding:B [place] [address] [facility] Hospital Repository 03/08/2018/ [id number] Ambulatory [place] 8 9 [facility] ing:EN Repository 03/08/2018 [id number] Ambulatory BMSBuilding:B [place] 9 MS.CF.[facility] Repository 02/14/2018 [id number] Amb[place] 9 [facility] ing:MTLAB Repository 02/04/2018 [id number] Amb[place] [facility] ing:US Repository 02/01/2018/ [id number] Ambulatory BMSBuilding:B [place] 8 5 MS.[facility] Repository 02/01/2018/ [id number] Ambulatory BMSBuilding:B [place] 8 8 [facility] Repository PAYERS PAYERS ENCOUNTER GUARANTOR PAYER SUBSCRIBER SOURCE 06/27/2018 JACLYN [place] Primary MARTHA MÉNDEZB: [place] [id number] Insurance:[employer] [id number] [facility] Number: [place], [place] [id number] Repository [address]Rfx: (330) Date:4184-03-45HK [phone] () [place]88[address]KMNQQJASZNY, [place] [address]NM: 06/27/2018 Secondary NOT GIVENUNK [place] Insurance:SELF PAY [facility] Number: Effective Repository Date:2018-06-27 06/27/2018 MARTHA [id number] Primary MARTHA MÉNDEZB: [place] Insurance:BDNA [id number] [place], [place] Number: [facility] [address]Wjj: (330) [id number] Repository [phone] () Date:6458-89-75JK [address]GREKTFEVX, [place] [address]VN: 06/27/2018 Secondary NOT GIVENUNK [place] Insurance:[facility]LF [facility]Y [facility]: Effective Repository Date:2018-06-17 05/29/2018 JACLYN [place] Primary MARTHA M STARODOLFODOB: [place] [id number] Insurance:CIGNAPolicy [id number] Community [place] Number: [place], [place] [id number] Repository [address]Knt: (330) Date:9908-90-56RC [phone] () 377885YSPTQBGMQVR, [place] [address]EM: 05/29/2018 Secondary NOT GIVENUNK [place] Insurance:SELF PAY [facility] Number: Effective Repository Date:2018-05-03 05/02/2018 MARTHA M DOROTA Primary MARTHA M HONEYB: [place] Insurance:CIGNAPolicy [id number] [place], [place] Number: [facility] [address]Hsw: (330) [id number] Repository [phone] () Date:9051-92-53FQ [address], [place] [address]GU: 05/02/2018 Secondary NOT GIVENUNK [place] Insurance:SELF PAY [facility] Number: Effective Repository Date:2018-04-25 03/08/2018 JACLYN [place] Primary MARTHA M STARODOLFODOB: [place] [id number] Insurance:[employer]IGNAPolicy [id number] Community [place] Number: [place], [place] [id number] Repository [address]Lvp: (330) Date:5968-82-47IF [phone] () [address]12[address]BDTSJZYNSUE, [place] [address]YN: 03/08/2018 Secondary NOT GIVENUNK [place] Insurance:SELF PAY [facility] Number: Effective Repository Date:2018-02-01 03/08/2018 JACLYN [place] Primary MARTHA M HALEYDOB: [place] [id number] Insurance:CIGNAPolicy [id number] Community [place] Number: [id number] [place], [place] [address]Effective Repository [address]Dqu: (330) Date:3065-17-99NX [phone] (HP) 4940[address]ALHERXMLFGV, [place] [address]PF: 03/08/2018 Secondary NOT GIVENUNK [place] Insurance:SELF PAY [facility] Number: Effective Repository Date:2018-03-08 02/14/2018 JACLYN Clay Primary MARTHA M STAHLDOB: [place] [id number] Insurance:CIGNAPolicy [id number] Community [place] Number: [place], [place] [id number] Repository [address]Dkp: (330) Date:6564-69-76KM [phone] () [address]7969MPSCYSJPFXB, [place] [address]QV: 02/14/2018 Secondary NOT GIVENUNK [place] Insurance:SELF PAY [facility] Number: Effective Repository Date:2018-02-14 02/04/2018 JACLYN [place] Primary SARAH [place] [id number] Insurance:CIGNAPolicy STAHLDOB: Community [place] Number: [id number] [id number] Repository [address]Vva: (330) Date:2348-54-43GU [phone] () 601906KAQYZYVOGGJ, [place] [address]WV: 02/04/2018 Secondary NOT GIVENUNK [place] Insurance:SELF PAY [facility] Number: Effective Repository Date:2018-02-01 02/01/2018 JACLYN Clay Primary SARAH [place] [id number] Insurance:CIGNAPolicy STAHLDOB: Community [place] Number: [id number], [place] [address]Effective Repository [address]Nmh: (330) Date:5864-55-23CP [phone] (HP) 798003NPNXNXYQCAZ, [place] [address]FB: 02/01/2018 Secondary NOT GIVENUNK [place] Insurance:SELF PAY [facility] Number: Effective Repository Date:2018-02-01 02/01/2018 JACLYN [place] Primary SARAH [place] [id number] Insurance:Thania SUAREZ: [facility] [place] Number: [id number], [place] [address]Effective Repository [address]Utd: 330) Date:3643-01-89QV [phone] () 387751HVABDTFUBFO, [place] [address]IF: 02/01/2018 Secondary NOT GIVENAMIRA [place] Insurance:SELF PAY [facility] Number: Effective Repository Date:2018-02-01
== END ==
PROVIDERS: Family Provider Family Medicine; PCP Family Medicine; Visit Provider Family Medicine
DX: Z12.31 Encounter for screening mammogram for malignant neoplasm of breast (principal)
CPT/HCPCS: 77063; 77067

== ENCOUNTER → 2018-06-27 10:35 | Outpatient (CLI) | payer OTHER, SELFPAY ==
[2018-06-27 09:55] VITALS: BMI 22.3
[2018-06-27 12:24] LABS: Amphetamine Urine VISTA POSITIVE (<1000 ng/mL); Barbiturate Urine VISTA NEGATIVE (< 200 ng/mL); Benzodiazepine Urine VISTA NEGATIVE (< 200 ng/mL); Cocaine Urine VISTA NEGATIVE (< 300 ng/mL); Ecstacy Urine VISTA NEGATIVE (< 500 ng/mL); Methadone Urine VISTA NEGATIVE (< 300 ng/mL); PCP Urine VISTA NEGATIVE (< 25 ng/mL); THC Urine VISTA NEGATIVE (< 50 ng/mL); Vista UDS pH Range 5
== END ==
PROVIDERS: Family Provider Family Medicine; PCP Family Medicine; Referring Provider Nurse Practitioner Family; Visit Provider Nurse Practitioner Family
DX: F50.81 Binge eating disorder (principal); Z79.899 Other long term (current) drug therapy
CPT/HCPCS: 80307

== ENCOUNTER → 2018-08-10 08:37 | Outpatient (CLI) | payer OTHER, SELFPAY ==
[2018-06-27 09:55] VITALS: BMI 22.3
[2018-08-10 10:23] LABS: Absolute Lymphocyte Count 2.33 X10^3/ul (0.83-4.51); Absolute Neutrophil Count 5.8 X10^3/uL (2.0-7.7); Basophil# 0.08 X10^3/uL; Basophil% 0.9 % (0-1); Eosinophil# 0.29 X10^3/uL; Eosinophils% 3.2 % (0-5); Hematocrit 39.9 % (37-47); Hemoglobin 12.9 g/dl (12.0-15.0); Lymphocyte # 2.33 X10^3/ul (4.0); Lymphocyte % 25.7 % (19-41); Mean Corp Hgb Conc 32.3 g/gl (32-36); Mean Corpuscular Hgb 28.8 pg (27.0-32.0); Mean Corpuscular Volume 89.1 fL (81-99); Mean Platelet Vol. 8.7 fl (6.2-12.0); Monocyte# 0.57 X10^3/uL; Monocyte% 6.3 % (0-10); Neutrophil # 5.79 X10^3/uL (2.7-7.7); Neutrophil % 63.8 % (47-70); POSITIVE COUNT NO; POSITIVE DIFFERENTIAL NO; POSITIVE MORPHOLOGY NO; Platelet Count 369 K/mm3 (150-450); RBC Distribution Width CV 13.6 % (11.6-14.6); RBC Distribution Width SD 43.1 fl (35.1-43.9); Red Blood Count 4.48 M/mm3 (4.2-5.4); White Blood Count 9.1 K/mm3 (4.4-11.0)
[2018-08-10 10:43] LABS: ALB/GLOB Ratio 0.9 RATIO (0.9-2.4); AST(SGOT) 13 U/L (15-37); Alanine Aminotransfer ALT/SGPT 16 U/L (13-56); Albumin, Serum 3.3 g/dL (3.2-5.0); Alkaline Phosphatase 47 U/L (45-117); Anion Gap 7 (5-15); BUN 17 mg/dL (7-18); BUN/Creat Ratio 17.1 RATIO (10-20); Calcium,Total 8.2 mg/dL (8.5-10.1); Chloride 106 mmol/L (98-107); Cholesterol 204 mg/dL (200); Creatinine, Serum 0.99 mg/dL (0.55-1.02); EST Glomerular Filtration Rate 63 mL/min (>60); Est Glom Filt Rate - Afr Amer 76 mL/min (>60); Globulin 3.6 g/dL (2.2-4.2); Glucose 84 mg/dL (74-106); High Density Lipoprotein 82 mg/dL; Potassium 4.2 mmol/L (3.5-5.1); Protein, Total 6.9 g/dL (6.4-8.2); Sodium Level 138 mmol/L (136-145); Thyroid Stim Hormone (TSH) 2.96 uIU/mL (0.358-3.74); Triglycerides 176 mg/dL; Very Low Density Lipoprotein 35 mg/dL (5-40)
[2018-08-10 11:00] LABS: Hemoglobin A1c 5.2 % (4.2-6.3)
== END ==
PROVIDERS: Family Provider Family Medicine; PCP Family Medicine; Referring Provider Registered Nurse; Visit Provider Registered Nurse
DX: R53.82 Chronic fatigue, unspecified (principal); E66.9 Obesity, unspecified
CPT/HCPCS: 36415; 80053; 80061; 83036; 84443; 85025

== ENCOUNTER → 2020-04-22 10:33 | Outpatient (CLI) | payer OTHER, SELFPAY ==
[2020-04-22 10:00] VITALS: BMI 26.9
[2020-04-22 12:25] LABS: Absolute Lymphocyte Count 2.32 X10^3/uL (0.83-4.51); Absolute Neutrophil Count 4.5 X10^3/uL (2.0-7.7); Basophil# 0.06 X10^3/uL; Basophil% 0.8 % (0-1); Eosinophil# 0.22 X10^3/uL; Eosinophils% 2.8 % (0-5); Hematocrit 44.2 % (37-47); Hemoglobin 13.9 g/dL (12.0-15.0); Lymphocyte # 2.32 X10^3/ul (4.0); Lymphocyte % 29.9 % (19-41); Mean Corp Hgb Conc 31.4 g/dL (32-36); Mean Corpuscular Hgb 28.1 pg (27.0-32.0); Mean Corpuscular Volume 89.5 fL (81-99); Mean Platelet Vol. 8.4 fl (6.2-12.0); Monocyte# 0.62 X10^3/uL; NRBC Flagged by Analyzer 0 % (0-5); Neutrophil % 58.1 % (47-70); Platelet Count 368 K/mm3 (150-450); RBC Distribution Width CV 13.5 % (11.6-14.6); RBC Distribution Width SD 43.8 fl (35.1-43.9); Red Blood Count 4.94 M/mm3 (4.2-5.4); White Blood Count 7.8 K/mm3 (4.4-11.0)
[2020-04-22 14:24] LABS: ALB/GLOB Ratio 0.9 RATIO (0.9-2.4); AST(SGOT) 34 U/L (15-37); Alanine Aminotransfer ALT/SGPT 55 U/L (13-56); Albumin, Serum 3.7 g/dL (3.2-5.0); Alkaline Phosphatase 85 U/L (45-117); Anion Gap 8 (5-15); BUN 19 mg/dL (7-18); Calcium,Total 8.8 mg/dL (8.5-10.1); Chloride 104 mmol/L (98-107); Cholesterol 265 mg/dL (200); EST Glomerular Filtration Rate 69 mL/min (>60); Est Glom Filt Rate - Afr Amer 84 mL/min (>60); Follicle Stimulating Hormone 13.7 mIU/mL; Globulin 3.9 g/dL (2.2-4.2); Glucose 78 mg/dL (74-106); High Density Lipoprotein 98 mg/dL; Protein, Total 7.6 g/dL (6.4-8.2); Sodium Level 139 mmol/L (136-145); T4 Free Direct 0.96 ng/dL (0.76-1.46); Thyroid Stim Hormone (TSH) 2.39 uIU/mL (0.358-3.74); Triglycerides 83 mg/dL; Very Low Density Lipoprotein 17 mg/dL (5-40)
== END ==
PROVIDERS: PCP Family Medicine; Referring Provider Family Medicine; Visit Provider Family Medicine
DX: R63.5 Abnormal weight gain (principal); N93.8 Other specified abnormal uterine and vaginal bleeding; E78.5 Hyperlipidemia, unspecified
CPT/HCPCS: 36415; 80053; 80061; 83001; 84439; 84443; 85025

== ENCOUNTER → 2020-05-21 | Outpatient (CLI) | payer OTHER, SELFPAY ==
[2020-05-21 10:55] VITALS: BMI 26.4
[2020-05-21 13:11] LABS: Amphetamine Urine VISTA POSITIVE (<1000 ng/mL); Barbiturate Urine VISTA NEGATIVE (< 200 ng/mL); Benzodiazepine Urine VISTA NEGATIVE (< 200 ng/mL); Cocaine Urine VISTA NEGATIVE (< 300 ng/mL); Ecstacy Urine VISTA NEGATIVE (< 500 ng/mL); Methadone Urine VISTA NEGATIVE (< 300 ng/mL); PCP Urine VISTA NEGATIVE (< 25 ng/mL); THC Urine VISTA NEGATIVE (< 50 ng/mL); Vista UDS pH Range 6
== END | disposition home or self-care (01) ==
LOC: LABSPEC 11:26
PROVIDERS: PCP Family Medicine; Referring Provider Nurse Practitioner Family; Visit Provider Nurse Practitioner Family
DX: F50.81 Binge eating disorder (principal)
CPT/HCPCS: 80307

== ENCOUNTER → 2020-05-25 07:06 | Outpatient (CLI) | payer OTHER, SELFPAY ==
[2020-04-22 10:00] VITALS: BMI 26.9
[2020-05-21 10:55] VITALS: BMI 26.4
--- NOTE | 2020-05-25 07:07 | BI_ITS ---
MAMMOGRAPHY - BILATERAL SCREENING REASON FOR EXAM: Female, 55 years old. Routine annual screening examination. PERTINENT HISTORY: Non-contributory. TECHNIQUE: Digital bilateral breast raphael (3D mammographic acquisition) in the CC and MLO projections. 2-D mediolateral oblique (MLO) and craniocaudad (CC) views of both breasts were obtained. CAD: Full Field Digital Mammography with Computer Added Detection was performed. COMPARISON: Comparison is made with prior study dated 05/29/2018. FINDINGS: Breast Composition: The breasts are heterogeneously dense, which may obscure small masses. There are no dominant masses or suspicious calcifications. No other significant abnormalities are identified. There has been no significant change since the prior study. BI/SCREEN MAMM (CAD) W/RAPHAEL BILAT IMPRESSION: Stable bilateral screening mammogram. Yearly follow-up mammogram recommended. (A) ASSESSMENT CATEGORY: BIRADS Category 1: Negative. A letter regarding these results will be sent to the patient by the facility within 30 days. Approximately 10% of breast cancers are not detected by mammography. A normal mammogram should not delay biopsy of a clinically suspicious abnormality. [id number] Electronically Signed: Wes Estevez, at 8:16 EST , Service support ,
== END ==
PROVIDERS: PCP Family Medicine; Referring Provider Family Medicine; Visit Provider Family Medicine
DX: Z12.31 Encounter for screening mammogram for malignant neoplasm of breast (principal)
CPT/HCPCS: 77063; 77067

== ENCOUNTER → 2020-08-20 13:02 | Outpatient (CLI) | payer OTHER, SELFPAY ==
[2020-08-20 08:56] VITALS: BMI 24.6
[2020-08-20 15:21] LABS: Amphetamine Urine VISTA NEGATIVE (<1000 ng/mL); Barbiturate Urine VISTA NEGATIVE (< 200 ng/mL); Benzodiazepine Urine VISTA NEGATIVE (< 200 ng/mL); Cocaine Urine VISTA NEGATIVE (< 300 ng/mL); Ecstacy Urine VISTA NEGATIVE (< 500 ng/mL); Methadone Urine VISTA NEGATIVE (< 300 ng/mL); PCP Urine VISTA NEGATIVE (< 25 ng/mL); THC Urine VISTA NEGATIVE (< 50 ng/mL); Vista UDS pH Range 6
[2020-08-26 20:08] LABS: Amphetamine Positive (.); AmphetamineGC/MS Conf 914 ng/mL (Cutoff=500)
[2020-08-26 22:26] LABS: Amphetamine Ur Confirm Positive (.); Methamphetamines Negative (Cutoff=500)
== END ==
PROVIDERS: PCP Family Medicine; Referring Provider Nurse Practitioner Family; Visit Provider Nurse Practitioner Family
DX: F50.81 Binge eating disorder (principal)
CPT/HCPCS: 80307

== ENCOUNTER → 2020-12-07 08:32 | Outpatient (CLI) | payer OTHER, SELFPAY ==
[2020-12-07 08:07] VITALS: BMI 24.6
[2020-12-07 12:44] LABS: Absolute Lymphocyte Count 2.49 X10^3/uL (0.83-4.51); Absolute Neutrophil Count 3.6 X10^3/uL (2.0-7.7); Basophil# 0.08 X10^3/uL; Basophil% 1.2 % (0-1); Eosinophils% 2.9 % (0-5); Hematocrit 44.1 % (37-47); Lymphocyte # 2.49 X10^3/ul (0.83-4.51); Lymphocyte % 36.4 % (19-41); Mean Corp Hgb Conc 31.7 g/dL (32-36); Mean Corpuscular Hgb 27.9 pg (27.0-32.0); Mean Platelet Vol. 8.3 fl (6.2-12.0); Monocyte# 0.47 X10^3/uL; Monocyte% 6.9 % (0-10); NRBC Flagged by Analyzer 0 % (0-5); Neutrophil # 3.58 X10^3/uL (2.7-7.7); Neutrophil % 52.3 % (47-70); Platelet Count 386 K/mm3 (150-450); RBC Distribution Width CV 12.9 % (11.6-14.6); RBC Distribution Width SD 41.3 fl (35.1-43.9); Red Blood Count 5.01 M/mm3 (4.2-5.4); White Blood Count 6.8 K/mm3 (4.4-11.0)
[2020-12-07 13:13] LABS: Anion Gap 7 (5-15); BUN 16 mg/dL (7-18); BUN/Creat Ratio 14.8 RATIO (10-20); Calcium,Total 9.1 mg/dL (8.5-10.1); Chloride 103 mmol/L (98-107); Cholesterol 244 mg/dL (200); Creatinine, Serum 1.08 mg/dL (0.55-1.02); EST Glomerular Filtration Rate 56 mL/min (>60); Est Glom Filt Rate - Afr Amer 68 mL/min (>60); Estradiol 114.6 pg/mL; Follicle Stimulating Hormone 30.9 mIU/mL; Glucose 85 mg/dL (74-106); High Density Lipoprotein 86 mg/dL; Luteinizing Hormone 21.1 mIU/mL; Potassium 4.1 mmol/L (3.5-5.1); Sodium Level 138 mmol/L (136-145); Thyroid Stim Hormone (TSH) 2.88 uIU/mL (0.358-3.74); Triglycerides 176 mg/dL; Very Low Density Lipoprotein 35 mg/dL (5-40)
[2020-12-07 13:16] LABS: Amphetamine Urine VISTA POSITIVE (<1000 ng/mL); Barbiturate Urine VISTA NEGATIVE (< 200 ng/mL); Benzodiazepine Urine VISTA NEGATIVE (< 200 ng/mL); Cocaine Urine VISTA NEGATIVE (< 300 ng/mL); Ecstacy Urine VISTA NEGATIVE (< 500 ng/mL); Methadone Urine VISTA NEGATIVE (< 300 ng/mL); PCP Urine VISTA NEGATIVE (< 25 ng/mL); THC Urine VISTA NEGATIVE (< 50 ng/mL); Vista UDS pH Range 7
[2020-12-07 14:08] LABS: Internal QC Validated? YES +Cl - CLEAR BKGD; Pregnancy, Serum, hCG Quali. NEGATIVE Negative
== END ==
PROVIDERS: PCP Family Medicine; Referring Provider Nurse Practitioner Family; Visit Provider Nurse Practitioner Family
DX: F50.81 Binge eating disorder (principal); N94.6 Dysmenorrhea, unspecified; R23.2 Flushing
CPT/HCPCS: 36415; 80048; 80061; 80307; 82670; 83001; 83002; 84443; 84703; 85025

== ENCOUNTER → 2021-03-04 | Outpatient (CLI) | payer OTHER, SELFPAY ==
[2021-03-04 12:50] LABS: Amphetamine Urine VISTA NEGATIVE (<1000 ng/mL); Barbiturate Urine VISTA NEGATIVE (< 200 ng/mL); Benzodiazepine Urine VISTA NEGATIVE (< 200 ng/mL); Cocaine Urine VISTA NEGATIVE (< 300 ng/mL); Ecstacy Urine VISTA NEGATIVE (< 500 ng/mL); Methadone Urine VISTA NEGATIVE (< 300 ng/mL); PCP Urine VISTA NEGATIVE (< 25 ng/mL); THC Urine VISTA NEGATIVE (< 50 ng/mL); Vista UDS pH Range 6
== END | disposition home or self-care (01) ==
LOC: LABSPEC 08:52
PROVIDERS: PCP Family Medicine; Referring Provider Nurse Practitioner Family; Visit Provider Nurse Practitioner Family
DX: F50.81 Binge eating disorder (principal)
CPT/HCPCS: 80307

== ENCOUNTER 2021-07-20 11:27 | Outpatient (CLI) | payer OTHER, SELFPAY ==
[2021-07-22 15:02] LABS: HPV APTIMA, High Risk Negative (Negative)
== END 2021-07-20 23:59 | disposition short-term general hospital (02) ==
LOC: LAB 11:48
PROVIDERS: Nurse Practitioner Women's Health; PCP Family Medicine; Visit Provider Nurse Practitioner Family
DX: Z12.4 Encounter for screening for malignant neoplasm of cervix (principal)
CPT/HCPCS: 87624; 88175; G0145

== ENCOUNTER 2021-08-04 13:54 | Outpatient (CLI) | payer OTHER, SELFPAY ==
--- NOTE | 2021-08-04 13:56 | US_ITS ---
STUDY: ULTRASOUND OF THE FEMALE PELVIS - COMPLETE REASON FOR EXAM: Female, 56 years old. Abnormal bleeding LMP: 06/22/2021 TECHNIQUE: Transabdominal and Transvaginal TECHNICAL QUALITY: Adequate. COMPARISON: None. FINDINGS: The uterus is anteverted and is in a midline position. The uterus measures 6.45 x 2.71 x 4.63 cm. Normal uterine cervix. The endometrium measures 2.4 mm in thickness, and is hyperechoic. There is no demonstrated endometrial mass. There is a 1 cm fibroid. I.U.D. - The patient does not have an I.U.D. The right ovary is visualized. The right ovary measures 2.6 x 1.7 x 2.2 cm. There is a simple 2.0 cm cyst.. There is normal arterial and normal venous vascularity. The left ovary is not visualized. There is no fluid in the cul-de-sac. The bladder is sonographically normal US/Transvaginal Non- IMPRESSION: Sonographically normal endometrium Small uterine fibroid Simple right ovarian cyst, follow-up recommended to ensure resolution Electronically Signed: Michael Moya MD at 16:17 EST ,
== END 2021-08-04 23:59 | disposition home or self-care (01) ==
LOC: US 13:55
PROVIDERS: PCP Family Medicine; Referring Provider Nurse Practitioner Women's Health; Visit Provider Nurse Practitioner Women's Health
DX: N92.0 Excessive and frequent menstruation with regular cycle (principal)
CPT/HCPCS: 76830

== ENCOUNTER 2021-08-04 14:51 | Outpatient (CLI) | payer OTHER, SELFPAY ==
--- NOTE | 2021-08-04 14:55 | BI_ITS ---
MAMMOGRAPHY - BILATERAL SCREENING REASON FOR EXAM: Female, 56 years old. Routine annual screening examination. PERTINENT HISTORY: Non-contributory. TECHNIQUE: Digital bilateral breast raphael (3D mammographic acquisition) in the CC and MLO projections. 2-D mediolateral oblique (MLO) and craniocaudad (CC) views of both breasts were obtained. CAD: Full Field Digital Mammography with Computer Added Detection was performed. COMPARISON: Comparison is made with prior mammogram dated 05/25/2020 and 05/29/2018. FINDINGS: Breast Composition: The breasts are heterogeneously dense, which may obscure small masses. There are no dominant masses or suspicious calcifications. No other significant abnormalities are identified. There has been no significant change since the prior study. BI/SCRN MAMM (CAD)W/RAPHAEL BILAT IMPRESSION: Stable bilateral screening mammogram. Yearly follow-up mammogram recommended. (A) ASSESSMENT CATEGORY: BIRADS Category 1: Negative. A letter regarding these results will be sent to the patient by the facility within 30 days. Approximately 10% of breast cancers are not detected by mammography. A normal mammogram should not delay biopsy of a clinically suspicious abnormality. [id number] Electronically Signed: Wes Estevez MD at 15:43 EST ,
== END 2021-08-04 23:59 | disposition home or self-care (01) ==
LOC: OPBI 14:54
PROVIDERS: PCP Family Medicine; Referring Provider Nurse Practitioner Women's Health; Visit Provider Nurse Practitioner Women's Health
DX: Z12.31 Encounter for screening mammogram for malignant neoplasm of breast (principal)
CPT/HCPCS: 77063; 77067

== ENCOUNTER 2021-08-30 08:37 | Outpatient (CLI) | payer OTHER, SELFPAY ==
[2021-08-30 12:04] LABS: Absolute Lymphocyte Count 1.97 X10^3/uL (0.83-4.51); Absolute Neutrophil Count 4.2 X10^3/uL (2.0-7.7); Basophil# 0.06 X10^3/uL; Basophil% 0.9 % (0-1); Eosinophil# 0.14 X10^3/uL; Eosinophils% 2.1 % (0-5); Hematocrit 43.4 % (37-47); Hemoglobin 14.1 g/dL (12.0-15.0); Lymphocyte # 1.97 X10^3/ul (0.83-4.51); Mean Corp Hgb Conc 32.5 g/dL (32-36); Mean Corpuscular Volume 89.3 fL (81-99); Mean Platelet Vol. 8.5 fl (6.2-12.0); Monocyte# 0.44 X10^3/uL; Monocyte% 6.5 % (0-10); NRBC Flagged by Analyzer 0 % (0-5); Neutrophil # 4.17 X10^3/uL (2.7-7.7); Neutrophil % 61.2 % (47-70); Platelet Count 365 K/mm3 (150-450); RBC Distribution Width CV 13.1 % (11.6-14.6); RBC Distribution Width SD 42.7 fl (35.1-43.9); Red Blood Count 4.86 M/mm3 (4.2-5.4); White Blood Count 6.8 K/mm3 (4.4-11.0)
[2021-08-30 12:28] LABS: Anion Gap 4 (5-15); BUN 14 mg/dL (7-18); BUN/Creat Ratio 13.1 RATIO (10-20); Calcium,Total 9.3 mg/dL (8.5-10.1); Chloride 105 mmol/L (98-107); Creatinine, Serum 1.07 mg/dL (0.55-1.02); EST Glomerular Filtration Rate 57 mL/min (>60); Est Glom Filt Rate - Afr Amer 69 mL/min (>60); Ferritin 57 ng/mL (8-252); Glucose 97 mg/dL (74-106); Iron 183 ug/dL (50-170); Iron Binding Capacity,Total 294 ug/dL (250-450); Magnesium 2.1 mg/dL (1.6-2.6); PERCENT IRON SATURATION 62.2 % (15.0-55.0); Potassium 4.1 mmol/L (3.5-5.1); Sodium Level 137 mmol/L (136-145)
[2021-08-30 12:30] LABS: Vitamin B12 390 pg/mL (211-911)
[2021-08-30 12:48] LABS: Amphetamine Urine VISTA POSITIVE (<1000 ng/mL); Barbiturate Urine VISTA NEGATIVE (< 200 ng/mL); Benzodiazepine Urine VISTA NEGATIVE (< 200 ng/mL); Cocaine Urine VISTA NEGATIVE (< 300 ng/mL); Ecstacy Urine VISTA NEGATIVE (< 500 ng/mL); Methadone Urine VISTA NEGATIVE (< 300 ng/mL); PCP Urine VISTA NEGATIVE (< 25 ng/mL); THC Urine VISTA NEGATIVE (< 50 ng/mL); Vista UDS pH Range 6
== END 2021-08-30 23:59 | disposition home or self-care (01) ==
LOC: BIMLAB 08:38
PROVIDERS: PCP Family Medicine; Referring Provider Physician Assistant; Visit Provider Physician Assistant
DX: F50.81 Binge eating disorder (principal); G25.81 Restless legs syndrome; N92.0 Excessive and frequent menstruation with regular cycle
CPT/HCPCS: 36415; 80048; 80307; 82607; 82728; 83540; 83550; 83735; 85025

== ENCOUNTER 2021-09-29 07:51 | Outpatient (CLI) | payer OTHER, SELFPAY ==
--- NOTE | 2021-09-29 07:53 | US_ITS ---
STUDY: ULTRASOUND OF THE FEMALE PELVIS - COMPLETE REASON FOR EXAM: Female, 56 years old. FU on cyst LMP: 09/20/2021. TECHNIQUE: Transabdominal and Transvaginal TECHNICAL QUALITY: Adequate. COMPARISON: Comparison is made with prior study dated 08/04/2021. FINDINGS: The uterus is anteverted and is tilted to the left side of the pelvis. The uterus measures 8.3 cm x 4.7 cm x 3.7 cm. There is a Nabothian cyst of the cervix. The endometrium measures 7 mm in thickness, and is hyperechoic. There is no demonstrated endometrial mass. There is no demonstrated myometrial mass. I.U.D. - The patient does not have an I.U.D. The right ovary is visualized. The right ovary measures 2.7 cm x 2.1 cm x 2 cm. A dominant follicle is seen within the right ovary measuring 2 cm x 1.6 cm x 1.8 cm. There is no visualized right adnexal mass or complex lesion. There is normal arterial and normal venous vascularity. The left ovary is non-visualized due to overlying bowel.. There is no fluid in the cul-de-sac. The pre void volume of the bladder was 208 ml. US/Transvaginal Non- IMPRESSION: 2 cm x 1.6 x 1.8 segment dominant follicle in the right ovary. Electronically Signed: Wes Estevez MD at 10:22 EDT ,
--- NOTE | 2021-09-29 07:53 | US_ITS ---
STUDY: ULTRASOUND OF THE FEMALE PELVIS - COMPLETE REASON FOR EXAM: Female, 56 years old. FU on cyst LMP: 09/20/2021. TECHNIQUE: Transabdominal and Transvaginal TECHNICAL QUALITY: Adequate. COMPARISON: Comparison is made with prior study dated 08/04/2021. FINDINGS: The uterus is anteverted and is tilted to the left side of the pelvis. The uterus measures 8.3 cm x 4.7 cm x 3.7 cm. There is a Nabothian cyst of the cervix. The endometrium measures 7 mm in thickness, and is hyperechoic. There is no demonstrated endometrial mass. There is no demonstrated myometrial mass. I.U.D. - The patient does not have an I.U.D. The right ovary is visualized. The right ovary measures 2.7 cm x 2.1 cm x 2 cm. A dominant follicle is seen within the right ovary measuring 2 cm x 1.6 cm x 1.8 cm. There is no visualized right adnexal mass or complex lesion. There is normal arterial and normal venous vascularity. The left ovary is non-visualized due to overlying bowel.. There is no fluid in the cul-de-sac. The pre void volume of the bladder was 208 ml. US/Pelvic (Non ) IMPRESSION: 2 cm x 1.6 x 1.8 segment dominant follicle in the right ovary. Electronically Signed: Wes Estevez MD at 10:22 EDT ,
== END 2021-09-29 23:59 | disposition home or self-care (01) ==
LOC: OPUS 07:52
PROVIDERS: PCP Family Medicine; Visit Provider Nurse Practitioner Women's Health
DX: N83.209 Unspecified ovarian cyst, unspecified side (principal)
CPT/HCPCS: 76830; 76856

== ENCOUNTER → 2022-03-09 | Outpatient (CLI) | payer OTHER, SELFPAY ==
[2022-03-09 12:36] LABS: Amphetamine Urine VISTA POSITIVE (<1000 ng/mL); Barbiturate Urine VISTA NEGATIVE (< 200 ng/mL); Benzodiazepine Urine VISTA NEGATIVE (< 200 ng/mL); Cocaine Urine VISTA NEGATIVE (< 300 ng/mL); Ecstacy Urine VISTA NEGATIVE (< 500 ng/mL); Methadone Urine VISTA NEGATIVE (< 300 ng/mL); PCP Urine VISTA NEGATIVE (< 25 ng/mL); THC Urine VISTA NEGATIVE (< 50 ng/mL); Vista UDS pH Range 7
== END | disposition home or self-care (01) ==
LOC: LABSPEC 09:00
PROVIDERS: PCP Family Medicine; Referring Provider Physician Assistant; Visit Provider Physician Assistant
DX: F50.81 Binge eating disorder (principal)
CPT/HCPCS: 80307

== ENCOUNTER → 2022-05-31 | Outpatient (CLI) | payer OTHER, SELFPAY | END | disposition home or self-care (01) | PROVIDERS: PCP Family Medicine; Referring Provider Physician Assistant; Visit Provider Physician Assistant | DX: F50.81 Binge eating disorder (principal) ==

== ENCOUNTER → 2022-08-11 | Outpatient (CLI) | payer OTHER, SELFPAY ==
--- NOTE | 2022-08-11 07:33 | BI_ITS ---
MAMMOGRAPHY - BILATERAL SCREENING REASON FOR EXAM: Female, 57 years old. Routine annual screening examination. PERTINENT HISTORY: Non-contributory. TECHNIQUE: Digital bilateral breast raphael (3D mammographic acquisition) in the CC and MLO projections. 2-D mediolateral oblique (MLO) and craniocaudad (CC) views of both breasts were obtained. CAD: Full Field Digital Mammography with Computer Added Detection was performed. COMPARISON: Comparison is made with prior study dated 08/04/2021 and 05/25/2020. FINDINGS: Breast Composition: The breasts are heterogeneously dense, which may obscure small masses. There are no dominant masses or suspicious calcifications. No other significant abnormalities are identified. There has been no significant change since the prior study. BI/SCRN MAMM (CAD)W/RAPHAEL BILAT IMPRESSION: Stable bilateral screening mammogram. Yearly follow-up mammogram recommended. (A) ASSESSMENT CATEGORY: BIRADS Category 1: Negative. A letter regarding these results will be sent to the patient by the facility within 30 days. Approximately 10% of breast cancers are not detected by mammography. A normal mammogram should not delay biopsy of a clinically suspicious abnormality. [id number] Electronically Signed: Wes Estevez MD at 9:49 EST ,
== END | disposition home or self-care (01) ==
LOC: OPBI 07:32
PROVIDERS: PCP Family Medicine; Visit Provider Nurse Practitioner Women's Health
DX: Z12.31 Encounter for screening mammogram for malignant neoplasm of breast (principal)
CPT/HCPCS: 77063; 77067

== ENCOUNTER → 2022-09-11 | Outpatient (CLI) | payer OTHER, SELFPAY ==
[2022-09-11 10:37] LABS: Absolute Lymphocyte Count 1.88 X10^3/uL (0.83-4.51); Basophil# 0.07 X10^3/uL; Basophil% 1.2 % (0-1); Eosinophil# 0.23 X10^3/uL; Eosinophils% 4.1 % (0-5); Hematocrit 39.8 % (37-47); Hemoglobin 12.5 g/dL (12.0-15.0); Lymphocyte # 1.88 X10^3/ul (0.83-4.51); Lymphocyte % 33.2 % (19-41); Mean Corp Hgb Conc 31.4 g/dL (32-36); Mean Corpuscular Hgb 28.3 pg (27.0-32.0); Mean Platelet Vol. 8.4 fl (6.2-12.0); Monocyte# 0.45 X10^3/uL; Monocyte% 7.9 % (0-10); NRBC Flagged by Analyzer 0 % (0-5); Neutrophil # 3.02 X10^3/uL (2.7-7.7); Neutrophil % 53.2 % (47-70); Platelet Count 415 K/mm3 (150-450); RBC Distribution Width CV 13.4 % (11.6-14.6); RBC Distribution Width SD 44.7 fl (35.1-43.9); Red Blood Count 4.42 M/mm3 (4.2-5.4); White Blood Count 5.7 K/mm3 (4.4-11.0)
[2022-09-11 11:03] LABS: AST(SGOT) 16 U/L (15-37); Alanine Aminotransfer ALT/SGPT 21 U/L (13-56); Albumin, Serum 3.5 g/dL (3.2-5.0); Alkaline Phosphatase 54 U/L (45-117); Amphetamine Urine VISTA NEGATIVE (<1000 ng/mL); Anion Gap 2 (5-15); BUN 17 mg/dL (7-18); BUN/Creat Ratio 19.8 RATIO (10-20); Barbiturate Urine VISTA NEGATIVE (< 200 ng/mL); Benzodiazepine Urine VISTA NEGATIVE (< 200 ng/mL); Calcium,Total 8.6 mg/dL (8.5-10.1); Chloride 107 mmol/L (98-107); Cholesterol 218 mg/dL (200); Cocaine Urine VISTA NEGATIVE (< 300 ng/mL); Creatinine, Serum 0.86 mg/dL (0.55-1.02); EST Glomerular Filtration Rate 73 mL/min (>60); Ecstacy Urine VISTA NEGATIVE (< 500 ng/mL); Est Glom Filt Rate - Afr Amer 88 mL/min (>60); Globulin 3.4 g/dL (2.2-4.2); Glucose 86 mg/dL (74-106); High Density Lipoprotein 95 mg/dL; Methadone Urine VISTA NEGATIVE (< 300 ng/mL); PCP Urine VISTA NEGATIVE (< 25 ng/mL); Potassium 4.2 mmol/L (3.5-5.1); Protein, Total 6.9 g/dL (6.4-8.2); Sodium Level 140 mmol/L (136-145); THC Urine VISTA NEGATIVE (< 50 ng/mL); Thyroid Stim Hormone (TSH) 2.65 uIU/mL (0.358-3.74); Triglycerides 81 mg/dL; Very Low Density Lipoprotein 16 mg/dL (5-40); Vista UDS pH Range 8
[2022-09-11 11:09] LABS: Vitamin B12 453 pg/mL (211-911); Vitamin D,25 Hydroxy 40.2 ng/mL
== END | disposition home or self-care (01) ==
LOC: BIMLAB 08:43
PROVIDERS: PCP Family Medicine; Referring Provider Nurse Practitioner Family; Visit Provider Nurse Practitioner Family
DX: F50.81 Binge eating disorder (principal); E56.9 Vitamin deficiency, unspecified
CPT/HCPCS: 36415; 80053; 80061; 80307; 82306; 82607; 84443; 85025

== ENCOUNTER → 2022-12-14 | Outpatient (CLI) | payer OTHER, SELFPAY ==
[2022-12-14 18:20] LABS: Amphetamine Urine VISTA POSITIVE (<1000 ng/mL); Barbiturate Urine VISTA NEGATIVE (< 200 ng/mL); Benzodiazepine Urine VISTA NEGATIVE (< 200 ng/mL); Cocaine Urine VISTA NEGATIVE (< 300 ng/mL); Ecstacy Urine VISTA NEGATIVE (< 500 ng/mL); Methadone Urine VISTA NEGATIVE (< 300 ng/mL); PCP Urine VISTA NEGATIVE (< 25 ng/mL); THC Urine VISTA NEGATIVE (< 50 ng/mL); Vista UDS pH Range 5
== END | disposition home or self-care (01) ==
LOC: LABSPEC 15:14
PROVIDERS: PCP Family Medicine; Referring Provider Nurse Practitioner Family; Visit Provider Nurse Practitioner Family
DX: F50.81 Binge eating disorder (principal)
CPT/HCPCS: 80307

== ENCOUNTER 2023-02-07 06:54 | Emergency (ER) | payer OTHER, SELFPAY ==
[2023-02-07 06:55] VITALS: BP 124/71; PULSE 87; RESP 14; TEMP 35.9; O2SAT 99; BMI 24.3
--- NOTE | 2023-02-07 07:26 | ED.VIS.CHEST ---
HPI History of Present Illness Chief Complaint: Chest Pain Informant: patient Onset/Context/Timing Onset: Days (5) Activity at onset: sudden Timing: Intermittent and Lasts (Approximately 20 minutes) Quality: Positive for Tightness Location: Substernal Relieved By: Antacids and NSAIDS (Aspirin) Associated Symptoms: Positive for Nausea and Vomiting; Negative for Diaphoresis, Dyspnea, Cough, Fever, Lightheadedness, Acid Reflux or Palpitations Narrative Narrative: Patient presents with chest pain that has been intermittent over the last 5 days. Patient states that it last for approximately 20 minutes when it comes on. Patient states it comes on suddenly. Patient describes it as a tightness over her upper chest. Patient states it radiates into her throat, jaw, and bilateral shoulders. Patient denies any radiation into her back. Patient states she has a history of prior lower back pain but denies any thoracic back pain. Patient states nothing makes it worse. Patient states he takes aspirin and Tums which help with the pain. Patient admits to an episode of nausea and vomiting yesterday. Patient states she has a history of gastroesophageal reflux but this feels different. Patient states she has had a lot of stress recently. CVD Risk Factors: Positive for Family History 1' </=55; Negative for Hypertension, Diabetes, Hypercholesterolemia or Smoking PE Risk Factors: Negative for Recent Travel/Surgery, Recent Immobilization, Prior DVT or PE, Cancer or OCP + Smoking + >/=35 PFSH PFSH Medical History (Updated 02/07/23 @ 08:[address] Darien Egan, DO) Dysmenorrhea Hot flashes Right foot pain Screening for colon cancer Vitamin deficiency Home Medications lisdexamfetamine 50 mg capsule 50 mg PO DAILY binge eating disorder. 30 days #30 caps 01/16/23 [Rx Last Taken Unknown] Allergy/AdvReac Type Severity Reaction Status Date / Time No Known Allergies Allergy Verified 02/07/23 06:55 Family History Mother Hypertension Pacemaker Lung cancer Other CLL (chronic lymphocytic leukemia) Surgical History (Updated 02/07/23 @ 07:[address] Darein Egan, DO) Hx of lumbosacral spine surgery Social History household members: spouse and children current occupational status: employed current occupation: [employer] Smoking Status: Former smoker alcohol intake: current alcohol intake frequency: a few times a month substance use type: does not use what type of physical activity do you participate in: walking frequency: 5-6 times per week seatbelt use: always do you feel safe at home: Yes additional social history: - Mandeep ROS ROS ED Constitutional Constitutional ED: Denies chills or fever(s) Eyes Eyes: Denies blurry vision or change in vision ENT ENT ED: Denies rhinorrhea or sore throat Cardiovascular Cardiovascular: Reports chest pain; Denies palpitations Respiratory/Chest Respiratory/Chest: Denies cough or dyspnea Gastrointestinal Gastrointestinal: Reports nausea and vomiting Genitourinary Genitourinary ED: Denies dysuria or hematuria Musculoskeletal Musculoskeletal: Denies back pain or neck pain Integumentary Denies abscess or rash Neurologic Neurologic: Denies headache(s) or weakness Allergic/Immunologic Allergic/Immunologic ED: Denies mouth swelling or urticaria EXAM Physical Exam Const Vital Signs: 02/07/23 06:55 02/07/23 06:55 02/07/23 07:43 Temperature 96.7 F L Temperature Source Temporal Pulse Rate 87 Respiratory Rate 14 Respiratory Effort Normal Blood Pressure 124/71 H Blood Pressure Mean 88 Pulse Ox 99 98 Oxygen Delivery Method Room Air Positive well nourished and well developed General Appearance ED: well developed and NAD HEENT normocephalic and atraumatic Eyes PERRL and EOMs intact bilaterally Neck supple and no JVD Chest Wall palpation of chest normal Resp normal respiratory effort and clear to auscultation bilaterally Effort and Inspection: Negative for respiratory distress Cardio regular rate and regular rhythm GI normal to inspection, nondistended, normoactive bowel sounds, soft to palpation, non-tender and non-distended Extremity normal to inspection General Extremety ED: Negative for edema or tenderness General Extremity: Negative for edema Neuro oriented x3, CN's II-XII intact bilaterally and no sensory deficits noted Sensorium / Orientation: awake and alert Motor Exam: strength 5/5 throughout Psych mental status grossly normal Heart Score History: Moderately Suspicious ECG: Normal Age: >45 - <65 years Risk Factors: 1 or 2 Risk Factors Troponin: </= Normal Limit Score: 3 MDM MDM MDM Narrative Medical decision making narrative: Differential diagnosis includes cardiac dysrhythmia, cardiac ischemia, pneumonia, pneumothorax, electrolyte abnormality, gastroesophageal reflux, and anxiety. EKG will be obtained to assess for cardiac dysrhythmia and cardiac ischemia. Chest x-ray will be obtained to assess for pneumonia and pneumothorax. CBC will be obtained to assess for leukocytosis and anemia. Basic metabolic profile will be obtained to assess for electrolyte abnormality and renal function. High-sensitivity troponin will be obtained to assess for cardiac ischemia. Patient has a Wells score of 0. I do not feel is from a pulmonary embolism. History & Record Review Discussion w/independent historian: Patient Additional record(s) reviewed:: Prior labs Lab Data Attestation: I reviewed the patient's lab results. Lab results narrative: CBC was reviewed. There is a slight anemia with a hemoglobin of 11.9. The remainder is within normal limits. Basic metabolic profile was reviewed and was within normal limits. High-sensitivity troponin was reviewed and was normal. Labs: Laboratory Results - last 24 hr 02/07/23 07:50 WBC 6.0 RBC 4.25 Hgb 11.9 L Hct 37.8 MCV 88.9 MCH 28.0 MCHC 31.5 L RDW Std Deviation 43.3 RDW Coeff of Leandra 13.3 Plt Count 272 MPV 8.1 Immature Gran % (Auto) 0.200 Neut % (Auto) 53.8 Lymph % (Auto) 34.5 [place] % (Auto) 9.5 Eos % (Auto) 1.0 Baso % (Auto) 1.0 Absolute Neuts (auto) 3.3 Absolute Lymphs (auto) 2.08 Nucleated RBC % 0 Sodium 143 Potassium 4.6 Chloride 110 H Carbon Dioxide 28.0 Anion Gap 5 BUN 21 H Creatinine 0.94 Estim Creat Clear Calc 70.67 Est GFR (MDRD) Af Amer 79 Est GFR (MDRD) Non-Af 65 BUN/Creatinine Ratio 22.3 H Glucose 98 Calcium 8.6 Troponin I High Sens 4 Radiography Chest X-Ray - ED: 1 View, Read by ED Physician, Read by Radiologist and No Acute Disease Diagnostic Testing: Clinical Impression(s) from Imaging Studies Chest X-Ray 02/07/23 07:36 IMPRESSION: No acute cardiopulmonary disease. Electronically Signed: Rafita Cope MD at 8:18 EDT , Portable 1 view chest x-ray was obtained. On my independent interpretation, lung graham are clear. There is normal cardiac silhouette. Bony thorax is normal. There is no acute process noted. Radiologist also interpreted the x-ray and agrees. EKG Initial EKG: Attestation: I personally reviewed and interpreted this EKG as follows: Interpretation: Sinus Rhythm (78) and No Acute Injury Pattern Comments: EKG was obtained. On my independent interpretation, it showed a normal sinus rhythm with a rate of 78. [place] interval, QRS interval, and QTc intervals were all normal. [place] was normal. There are no acute ST or T wave changes. Prior EKG tracings: not available for review Prior: No Prior Differential Diagnosis Chest pain/SOB: pulmonary embolism Reason(s) PE less likely: Positive for Well's <3, not tachycardic and not hypoxic, ACS ACS: Positive for EKG without ischemia, pneumothorax Reason(s) pneumothorax less likely: Positive for bilateral breath sounds, pneumonia Reason(s) pneumonia less likely: Positive for no noted fever, aortic dissection Reason(s) Aortic dissection less likely:: Positive for normal vascular exam, no history of HTN, normal neurological exam, no significant risk factors for dissection and blood pressure appropriate in ED and CHF Reason(s) CHF less likely: Positive for no significant peripheral edema and no orthopnea Treatment and Re-Evaluation :: Patient was given aspirin here. Patient is feeling better on reevaluation. Patient was advised of her findings. Patient has a HEART score of 3. Patient was advised that this is low risk for acute cardiac event. Patient was instructed to follow-up with her primary care physician in 5 to 7 days. Patient was instructed return if worse in any way. Patient understood and was agreeable with the plan. All questions were answered. Discharge Plan Triage Chief Complaint: Chest Pain ED Provider: Darien Egan Dx/Rx/DC Orders Clinical Impression: Chest pain Instructions: ED Chest Pain, Uncertain Cause Prescriptions: No Action lisdexamfetamine 50 mg capsule 50 mg PO DAILY 30 Days Qty: 30 0RF Primary Care Provider: Eddi Calderon NP Referrals: Eddi Calderon NP, DECORATING MACHINE TENDER-C [Primary Care Provider] - 5-7 Days Disposition Disposition: Home, Self Care
--- NOTE | 2023-02-07 07:36 | EKG12_ITS ---
Test Reason : CP Blood Pressure : / mmHG Vent. Rate : 078 BPM Atrial Rate : 078 BPM P-R Int : 130 ms QRS Dur : 078 ms QT Int : 360 ms P-R-T Axes : 058 026 033 degrees QTc Int : 410 ms Normal sinus rhythm Normal ECG No previous ECGs available Confirmed by BEBETO YADAV, TJ ([id number]), managing editor BEVERLY ROSAS ([id number]) on 04/04/2023 2:08:20 PM Referred By: VAISHNAVI Confirmed By:TJ TATE MD
--- NOTE | 2023-02-07 07:36 | RAD_ITS ---
EXAM: XR CHEST, 1 VIEW CLINICAL INDICATION: chest pain -- -- intermittent CP x 5 days, nausea and vomiting TECHNIQUE: Frontal view of the chest. COMPARISON: No relevant prior studies available. FINDINGS: LUNGS AND PLEURAL SPACES: Normal. No consolidation or edema. No pneumothorax. No effusion. HEART: Normal heart size. MEDIASTINUM: No mediastinal or hilar mass. BONES/JOINTS: No acute abnormality. RAD/Chest 1 View (Portable) IMPRESSION: No acute cardiopulmonary disease. Electronically Signed: Rafita Cope MD at 8:18 EDT ,
[2023-02-07 07:43] VITALS: O2SAT 98
[2023-02-07] MEDS: Aspirin 81 MG TAB.CHEW 324 MG PO (07:48)
[2023-02-07 07:58] LABS: Absolute Lymphocyte Count 2.08 X10^3/uL (0.83-4.51); Absolute Neutrophil Count 3.3 X10^3/uL (2.0-7.7); Basophil# 0.06 X10^3/uL; Eosinophil# 0.06 X10^3/uL; Hematocrit 37.8 % (37-47); Hemoglobin 11.9 g/dL (12.0-15.0); Lymphocyte # 2.08 X10^3/ul (0.83-4.51); Lymphocyte % 34.5 % (19-41); Mean Corp Hgb Conc 31.5 g/dL (32-36); Mean Corpuscular Volume 88.9 fL (81-99); Mean Platelet Vol. 8.1 fl (6.2-12.0); Monocyte# 0.57 X10^3/uL; Monocyte% 9.5 % (0-10); NRBC Flagged by Analyzer 0 % (0-5); Neutrophil # 3.25 X10^3/uL (2.7-7.7); Neutrophil % 53.8 % (47-70); Platelet Count 272 K/mm3 (150-450); RBC Distribution Width CV 13.3 % (11.6-14.6); RBC Distribution Width SD 43.3 fl (35.1-43.9); Red Blood Count 4.25 M/mm3 (4.2-5.4)
[2023-02-07 08:21] LABS: Anion Gap 5 (5-15); BUN 21 mg/dL (7-18); BUN/Creat Ratio 22.3 RATIO (10-20); Calcium,Total 8.6 mg/dL (8.5-10.1); Chloride 110 mmol/L (98-107); Creatinine, Serum 0.94 mg/dL (0.55-1.02); EST Glomerular Filtration Rate 65 mL/min (>60); Est Glom Filt Rate - Afr Amer 79 mL/min (>60); Estimated Creatinine Clearance 70.67 ml/min; Glucose 98 mg/dL (74-106); Potassium 4.6 mmol/L (3.5-5.1); Sodium Level 143 mmol/L (136-145); Troponin-I HS 4 pg/mL (3.0-54.0)
[2023-02-07 09:01] VITALS: BP 128/70; PULSE 78; RESP 16; O2SAT 99
== END 2023-02-07 09:02 | disposition home or self-care (01) ==
PROVIDERS: Emergency Provider Emergency Medicine; PCP Nurse Practitioner Family; Visit Provider Emergency Medicine
DX: R07.9 Chest pain, unspecified (principal); R11.2 Nausea with vomiting, unspecified; K21.9 Gastro-esophageal reflux disease without esophagitis; Z87.891 Personal history of nicotine dependence
CPT/HCPCS: 71045; 80048; 84484; 85025; 93005; 99284; A4216

== ENCOUNTER → 2023-03-01 | Outpatient (CLI) | payer OTHER, SELFPAY ==
--- NOTE | 2023-03-01 18:26 | STRESSREP ---
Stress Test Report Exercise stress test. 57-year-old lady with a history of chest pain Stress protocol: Resting EKG demonstrates normal sinus rhythm with a rate of 74 bpm resting blood pressure is 126/80 mmHg. The patient exercised according to the regular Elmo protocol for a total duration of 7 minutes and 20 seconds attaining a maximum heart rate of 170 bpm which was 93% of maximum predicted heart rate; the maximum workload was 10.1 metabolic equivalents. At rest there were no ST or T wave changes noted to suggest ischemia and at peak exercise upsloping ST changes only were noted which did not meet the criteria for ischemia. No clinical angina was noted the test was terminated due to the target heart rate being achieved/fatigue. The peak blood pressure was 168/80 mmHg. Rate-pressure product was [id number] Conclusion: Stress test with no EKG criteria for ischemia at a high workload..
== END | disposition home or self-care (01) ==
LOC: CVS 11:27
PROVIDERS: PCP Nurse Practitioner Family; Referring Provider Nurse Practitioner Family; Visit Provider Nurse Practitioner Family
DX: R07.9 Chest pain, unspecified (principal)
CPT/HCPCS: 93017

== ENCOUNTER → 2023-08-06 | Outpatient (CLI) | payer OTHER, SELFPAY ==
--- NOTE | 2023-08-06 | AMP_PTH ---
PATHOLOGY RESULTS PATIENT: KEVIN DE LEON LOC: [facility] U#:[id number] AGE/SX: 58/F ROOM: RE08/06/[address]: Dr. Paul Long DPM : 1965 BED: DIS: 08/06/2023 SPEC #: [id number] RECD: 08/07/23 07:38 STATUS: RORY REMeliton #: [id number] ALISSA: 08/06/23 00:[address]: Paul Long DEPT: SURGICAL PATHOLOGY RECD BY: Miriam Baptiste ENTERED: 08/07/23 07:38 SP TYPE: Amputation OTHR DR: Eddi Calderon, PRODUCT APPLICATIONS ENGINEER-C [facility] Tissues: Toe, NOS Procedures: Decalcification bone/plaque Surgery Specimen Level IV HEADER OPERATION: Right arthroplasty of right second digit distal interphalangeal joint, excision of ganglionic cyst of right foot PRE-OP DIAGNOSIS: Ganglion, right ankle and foot; pain in right toe(s) TISSUE SUBMITTED: Right foot, second digit ganglion cyst MICROSCOPIC DIAGNOSIS Second digit ganglion cyst, excision: Consistent with ganglion cyst. Skin with hyperkeratosis. AM:farhat 08/08/2023 MICROSCOPIC DESCRIPTION Slides are reviewed. GROSS DESCRIPTION Received in fixative is one container labeled with the patient's name and designated Right foot, second digit ganglion cyst. The specimen consists of a piece of aaron-white skin ellipse measuring 1.0 x 0.5 cm and 0.2 cm in thickness. The specimen is inked, serially sectioned and submitted entirely in one cassette. / AVELINO:farhat 08/07/2023 TC:5 CPT: 47411
--- OUTSIDE RECORDS SUMMARY | 2023-08-06 18:24 | XMS RPT_ITS | CCD ---
Author Name Unknown Address [address] [place] [address] Organization [facility] Results Test Name Value Interpretation Reference Range Facil ity Summary Purpose Family History No Family History Records Found Advance Directives No Advanced Directives Records Found Additional Source Comments INFORMATION SOURCE (unrecogn ized section and content) FOR RECORDS PERTAINING TO PATIENTS WHO ARE OR HAVE BEEN ENROLLED IN A CHEMICAL DEPENDENCY/SUBSTANCEABUSE PROGRAM, SOME INFORMATION MAY BE OMITTED. This clinical summary was aggregated from multiple sources. Caution should be exercised in using it in the provision of clinical care. This summary normalizes information from multiple sources, and as a consequence, information in this document may materially change the coding, format and clinical context of patient data. In addition, data may be omitted in some cases. CLINICAL DECISIONS SHOULD BE BASED ON THE PRIMARY CLINICAL RECORDS. [employer] provides no warranty or guarantee of the accuracy or completeness of information in this document.
== END | disposition home or self-care (01) ==
LOC: LABSPEC 15:33
PROVIDERS: PCP Nurse Practitioner Family; Referring Provider Student in an Organized Health Care Education/Training Program; Visit Provider Student in an Organized Health Care Education/Training Program
DX: M67.471 Ganglion, right ankle and foot (principal); L85.9 Epidermal thickening, unspecified
CPT/HCPCS: 88305; 88311

== ENCOUNTER 2024-05-30 11:12 | Outpatient (RCR) | payer OTHER, SELFPAY ==
--- NOTE | 2024-05-30 12:05 | HP.OTEVAL ---
Patient's Visit Information Visit Information Visit Information: KEVIN DE LEON is a 59 year old F, referred to Occupational Therapy by Dr. Alverto Bailey MD, with a diagnosis of left Dupuytren's contracture. Date of Evaluation: 05/30/24 Occupational Therapist: Alcira Pittman, ROME/Danna, CHT Subjective Subjective: This 59 year old female was seen for OT eval with dx of left LF and RF Dupuytren's contracture. pt arrives after having xiaflex injection and manipulation completed 05/29/23. Pt arrives today for custom orthosis ( paddle splint ) for night use- to ensure pt is not flexing fingers while in her sleep- Pt states since injection of xiaflex she has had increase pain- better today but swelling still an issue- pt states it is feeling better but still can not use her hand to the fullest due to swelling and soreness- Pain left hand: Current Pain Intensity: 5 Pain Intensity Range: 5 ROM ROM Comments: pt demo with left MCP ext of IF-MF-RF-& LF all at -30* pt demo 1/2 from composite fist ( swelling) therapist ed. pt on contrast bath and AROM ex to decrease swelling this session Quick DASH-Disab of Arm,Shoulder& Hand Quick DASH Score: 60.0000 Goals Goal:ROM equal to unaffected hand: Yes Goal:No pain with affected hand use: Yes Goal:Full use of affected hand in daily activities including work: Yes Other Goal: pt will demo understanding of orthosis use for night for next 12 weeks by end of 1st session pt will demo IND doffing and donning of orthosis by end of 1st session Rehabilitation General Assessment: pt arrives after having xiaflex injection with manipulation on 05/29/24. pt demo with hand bruising and swelling- limited motion at this time and in need of custom orthosis paddle for night use- pt demo need for skilled OT services 2-3 visits to ensure recovery from procedure: Today therapist francisco. custom orthosis and ed. pt on on use. pt demo understand use of orthosis and to adj fit as swelling decreases. pt ed. on ROM , edema and return to use as tolerated. pt demo understanding and agree to POC. Rehabilitation Potential: Good Anticipated Interventions Anticipated Interventions: A/AAROM/PROM, Edema Control and Orthoses Visit Plan General Plan: orthosis for night use for 12 weeks-wean out after that time return for orthosis adj in 3 weeks initiate edema control ROM of flexion and extension of digits return to use of hand with ADLs TEXT: Thank you for the opportunity to evaluate your patient. For Medicare and Medicare HMO plans, please review the plan of care and approve it. It will need to be FAXED BACK to us at [phone] for Medicare purposes. Please let me know if there are questions or concerns regarding this plan of care. Physician Signature: Date:
--- NOTE | 2024-08-27 13:44 | HP.OT.NRP ---
Patient Information Patient Information: KEVIN DE LEON was seen in my office for initial evaluation on 05/30/24. The following Plan of Care was established for this patient: Anticipated Interventions Anticipated Interventions: A/AAROM/PROM, Edema Control and Orthoses Last Seen Last Seen: This patient was last seen in our office 05/30/24. Pertinent comments regarding their Occupational therapy will appear below: pt was seen for orthosis francisco. only. No further apts were scheduled. At this time pt d/c due to time lapse in services. At this point I will be discontinuing this patient from occupational therapy. I would be happy to see this patient again in the future if found appropriate by the physician. Thank you! Alcira Pittman, OTR/L, CHT
== END 2024-05-30 19:00 | disposition home or self-care (01) ==
LOC: OT 11:12
PROVIDERS: PCP Nurse Practitioner Family; Referring Provider Surgery Plastic and Reconstructive Surgery; Visit Provider Surgery Plastic and Reconstructive Surgery
DX: M72.0 Palmar fascial fibromatosis [Dupuytren] (principal)
CPT/HCPCS: 97165; 97760

== ENCOUNTER → 2024-11-12 | Outpatient (CLI) | payer OTHER, SELFPAY ==
[2024-11-12 13:43] LABS: Amphetamine Urine PRESUMPTIVE POSITIVE (<1000 ng/mL); Barbiturate Urine NEGATIVE (< 200 ng/mL); Benzodiazepine Urine NEGATIVE (< 200 ng/mL); Buprenorphine Urine NEGATIVE (< 200 ng/mL); Cocaine Urine NEGATIVE (< 300 ng/mL); Fentanyl, Urine NEGATIVE; Methadone Urine NEGATIVE (< 300 ng/mL); Opiates Urine NEGATIVE (< 300 ng/mL); Oxycodone, Urine NEGATIVE (< 100 ng/mL); PCP Urine NEGATIVE (< 25 ng/mL); THC Urine NEGATIVE (< 50 ng/mL)
== END | disposition home or self-care (01) ==
LOC: LABSPEC 11:50
PROVIDERS: PCP Nurse Practitioner Family; Visit Provider Nurse Practitioner Family
DX: F90.9 Attention-deficit hyperactivity disorder, unspecified type (principal)
CPT/HCPCS: 80307

== ENCOUNTER → 2024-11-19 | Outpatient (CLI) | payer OTHER, SELFPAY ==
--- NOTE | 2024-11-19 12:25 | BI_ITS ---
EXAM: SCRN MAMM (CAD)W/RAPHAEL BILAT 11/19/2024 CLINICAL HISTORY: F, Age 59 y/o , SCREENING TECHNIQUE: Bilateral screening digital breast tomosynthesis with 2D and 3D images. Computer aided detection. COMPARISON: Prior exam(s) dated 08/11/2022, 08/04/2021, 05/25/2020. FINDINGS: TISSUE DENSITY: The breast tissue is composed of scattered area of fibroglandular density.. Bilateral Breast Mammographic Findings: No significant masses, calcifications or other abnormalities are identified. BI/SCRN MAMM (CAD)W/RAPHAEL BILAT IMPRESSION: Right Breast: BIRADS 1 NEGATIVE. Left Breast: BIRADS 1 NEGATIVE. OVERALL FINAL ASSESSMENT: BIRADS 1 NEGATIVE. RECOMMENDATION: Routine annual follow-up in 1 Year A letter with findings and recommendations will be mailed to the patient. Reading Location: [id number]
--- OUTSIDE RECORDS SUMMARY | 2024-11-19 21:02 | XMS RPT_ITS | CCD ---
Author Organization [facility] Care Team Providers Care Bone Plant Supervisor Name Role Phone Dr. Kev Ortiz Primary Care Provider [phone] Dr. Kev Ortiz Referring Provider Kvng MEDICAL REIMBURSEMENT MANAGER, MEDICAL REIMBURSEMENT MANAGER-C Eddi Attending Provider [phone] Kristy MEDICAL REIMBURSEMENT MANAGER, MEDICAL REIMBURSEMENT MANAGER-C Danyelle Attending Provider [phone] MICHAEL Rose Attending Provider Dr. Kev Warner Primary Care Provider [phone] Dr. Kev Ortiz Referring Provider Dr. Kev Ortiz Primary Care Provider [phone] Dr. Kev Ortiz Referring Provider MICHAEL Rose Attending Provider Dr. Kev Warner Primary Care Provider [phone] Dr. Kev Ortiz Referring Provider MICHAEL Rose Attending Provider Dr. Kev Warner Primary Care Provider [phone] Dr. Kev Ortiz Referring Provider MICHAEL Rose Attending Provider Dr. Kev Warner Primary Care Provider [phone] Dr. Kev Ortiz Referring Provider [phone] Kvng MEDICAL REIMBURSEMENT MANAGER, MEDICAL REIMBURSEMENT MANAGER-C Eddi Attending Provider [phone] Dr. Kev Ortiz Primary Care Provider [phone] Dr. Kev Ortiz Referring Provider Calderon MEDICAL REIMBURSEMENT MANAGER, MEDICAL REIMBURSEMENT MANAGER-C Eddi Attending Provider Calderon MEDICAL REIMBURSEMENT MANAGER, MEDICAL REIMBURSEMENT MANAGER-C Eddi Primary Care Provider Calderon MEDICAL REIMBURSEMENT MANAGER, MEDICAL REIMBURSEMENT MANAGER-C Eddi Referring Provider Calderon MEDICAL REIMBURSEMENT MANAGER, MEDICAL REIMBURSEMENT MANAGER-C Eddi Other Provider Dr. Neftaly Knox Attending Provider Calderon MEDICAL REIMBURSEMENT MANAGER, MEDICAL REIMBURSEMENT MANAGER-C Eddi Primary Care Provider Shelbie Colin Attending Provider Unavailable Calderon MEDICAL REIMBURSEMENT MANAGER-C, Eddi Primary Care Provider Lynn YADAV, Dr. Del Toro Attending Provider Dr. Alverto Bailey MD Referring Provider Calderon MEDICAL REIMBURSEMENT MANAGER-C, Eddi Referring Provider Eron MEDICAL REIMBURSEMENT MANAGER-C, Vicenta Le Attending Provider Calderon MEDICAL REIMBURSEMENT MANAGER-C, Eddi Primary Care Provider Kvng MEDICAL REIMBURSEMENT MANAGER-C, Eddi Attending Provider Eron RICO, Vicenta Le Attending Unavailabl e Calderon, Eddi Referring Unavailable Calderon, Eddi Primary Care Unavailable Calderon, Eddi Primary Care Unavailable Siska, Alverto Attending Unavailable Calderon, Eddi Referring Unavailable Siska, Alverto Referring Unavailable Calderon, Eddi Primary Care Unavailable Siska, Alverto Attending Unavailable Calderon, Eddi Attending Unavailable Calderon, Eddi Primary Care Unavailable Calderon, Eddi Attending Unavailable Calderon, Eddi Referring Unavailable Calderon, Eddi Primary Care Unavailable Siska, Alverto Attending Unavailable Calderon, Eddi Primary Care Unavailable Siska, Alverto Referring Unavailable Siska, Alverto Referring Unavailable Calderon, Eddi Primary Care Unavailable Siska, Alverto Attending Unavailable Medications Current Medications Medication Drug Class(es) Dates Sig (Normalized) Sig (Original) lisdexamfetamine dimesylate 50 mg oral capsule (20 sources) Central Nervous System Stimulant Start: 02-28-2024 take 1 capsule by mouth once daily Lisdexamfetamine 50 mg capsule Active 50 mg PO daily February 28, 2024 12:00am Start: 01-16-2023 End: 03-17-2023 take 1 capsule by mouth once daily Lisdexamfetamine 50 mg capsule Discontinued 50 mg PO DAILY February 15, 2023 March 16, 2023 12:00am March 17, 2023 12:25am Start: 11-14-2022 End: 01-13-2023 take 1 capsule by mouth once daily in the morning Lisdexamfetamine (Vyvanse) 50 mg capsule Discontinued 50 mg PO EVERY MORNING December 14, 2022 January 12, 2023 12:00am January 13, 2023 12:11am Start: 10-13-2022 End: 11-12-2022 take 1 capsule by mouth once daily Lisdexamfetamine 50 mg capsule Discontinued 50 mg PO DAILY October 13, 2022 November 11, 2022 12:00am November 12, 2022 12:04am Start: 09-11-2022 End: 10-11-2022 take 1 capsule by mouth once daily Lisdexamfetamine 50 mg capsule Discontinued 50 mg PO DAILY September 11, 2022 October 10, 2022 12:00am October 11, 2022 12:04am Start: 08-09-2022 End: 09-08-2022 take 1 capsule by mouth once daily Lisdexamfetamine 40 mg capsule Discontinued 40 mg PO DAILY August 09, 2022 September 07, 2022 12:00am September 08, 2022 12:04am Start: 07-04-2022 End: 08-03-2022 take 1 capsule by mouth once daily Lisdexamfetamine 40 mg capsule Discontinued 40 mg PO DAILY 30 July 04, 2022 August 02, 2022 1:00am August 03, 2022 1:04am Start: 05-01-2022 End: 06-30-2022 take 1 capsule by mouth once daily Lisdexamfetamine 40 mg capsule Discontinued 40 mg PO DAILY May 31, 2022 June 29, 2022 1:00am June 30, 2022 1:05am Start: 03-30-2022 End: 04-29-2022 take 1 capsule by mouth once daily Lisdexamfetamine 40 mg capsule Discontinued 40 mg PO DAILY 30 March 30, 2022 April 28, 2022 1:00am April 29, 2022 1:10am Start: 02-27-2022 End: 03-29-2022 take 1 capsule by mouth once daily Lisdexamfetamine 40 mg capsule Discontinued 40 mg PO DAILY 30 February 27, 2022 March 28, 2022 12:00am March 29, 2022 12:03am Start: 01-25-2022 End: 02-24-2022 take 1 capsule by mouth once daily Lisdexamfetamine 40 mg capsule Discontinued 40 mg PO DAILY January 25, 2022 February 23, 2022 12:00am February 24, 2022 12:04am Start: 12-07-2021 End: 01-06-2022 take 1 capsule by mouth once daily Lisdexamfetamine (Vyvanse) 40 mg capsule Discontinued 40 mg PO DAILY December 07, 2021 January 05, 2022 12:00am January 06, 2022 12:03am Start: 11-21-2021 End: 12-07-2021 take 1 capsule by mouth once daily Lisdexamfetamine (Vyvanse) 30 mg capsule Discontinued 30 mg PO DAILY November 23, 2021 December 22, 2021 12:00am December 07, 2021 8:43am Start: 03-29-2021 End: 11-17-2021 take 1 capsule by mouth once daily Lisdexamfetamine (Vyvanse) 30 mg capsule Discontinued 30 mg PO DAILY October 18, 2021 November 16, 2021 12:00am November 17, 2021 12:03am Start: 04-22-2020 End: 03-17-2021 take 1 capsule by mouth once daily Lisdexamfetamine (Vyvanse) 30 mg capsule Discontinued 30 mg PO DAILY February 15, 2021 March 16, 2021 12:00am March 17, 2021 12:01am Start: 05-02-2018 End: 08-29-2018 take 1 capsule by mouth once daily Lisdexamfetamine (Vyvanse) 30 mg capsule Discontinued 30 mg PO DAILY July 30, 2018 August 29, 2018 3:35pm Breese (Nk) (1 source) Start: 2023 Breese (Nk) A ctive 2023 12:00am Completed/Discontinued Medications Medication Drug Class(es) Dates Sig (Normalized) Sig (Original) acetaminophen 325 mg / oxyCODONE hydrochloride 5 mg oral tablet (2 sources) Opioid Agonist Start: 02-28-2024 End: 05-23-2024 Oxycodone-Acetamin ophen 5-325 mg tablet Discontinued 1 {tbl} PO 4 TIMES DAILY as needed February 28, 2024 12:00am May 23, 2024 2:36pm amoxicillin 500 mg oral capsule (11 sources) Penicillin-class Antibacterial Start: 06-01-2021 End: 07-20-2021 take 1 capsule by mouth twice daily Amoxicillin 500 mg capsule Discontinued 500 mg PO TWICE A DAY June 01, 2021 1:00am July 20, 2021 11:14am 24 hr amphetamine aspartate 5 mg / amphetamine sulfate 5 mg / dextroamphetamine saccharate 5 mg / dextroamphetamine sulfate 5 mg extended release oral capsule (20 sources) Central Nervous System Stimulant Start: 05-14-2018 End: 06-27-2018 take 1 capsule by mouth once daily in the morning, then take 1 capsule by mouth every twenty-four hours Dextroamphetamine- Amphetamine (Adderall Xr) 20 mg capsule,extended release 24hr Discontinued 20 mg PO EVERY MORNING June 13, 2018 June 27, 2018 11:20am collagenase clostridium histolyticum 0.9 mg injection (2 sources) Start: 05-23-2024 End: 06-04-2024 Collagenase Clostridium Histo. (Xiaflex) 0.9 mg recon soln Discontinued mg intralesional May 23, 2024 1:00am June 04, 2024 10:53am doxycycline hyclate 100 mg oral tablet (2 sources) Tetracycline-class Drug Start: 02-28-2024 End: 05-23-2024 take 1 tablet by mouth twice daily Doxycycline Hyclate 100 mg tablet Discontinued 100 mg PO TWICE A DAY February 28, 2024 12:00am May 23, 2024 2:36pm escitalopram 10 mg oral tablet (8 sources) Serotonin Reuptake Inhibitor Start: 05-31-2022 End: 12-14-2022 take 1 tablet by mouth once daily Escitalopram Oxalate (Lexapro) 10 mg tablet Discontinued 10 mg PO DAILY May 31, 2022 1:00am December 14, 2022 12:47pm Norgestimate-Ethinyl Estradiol (20 sources) Progestin, Estrogen Start: 11-13-2018 End: 02-28-2019 Norgestimate-Ethin yl Estradiol 0.18/0.215/0.25 mg-35 mcg (28) tablet Discontinued 1 {tbl} PO daily 84 November 13, 2018 8:27am February 28, 2019 2:33pm Start: 11-13-2018 End: 02-28-2019 take 1 tablet by mouth once daily Norgestimate-Ethinyl Estradiol Discontinued 1 TABLET PO daily November 13, 2018 7:27am February 28, 2019 1:33pm Start: 11-13-2018 End: 02-28-2019 take 1 tablet by mouth once daily Norgestimate-Ethinyl Estradiol Discontinued 1 TABLET PO daily November 13, 2018 8:27am February 28, 2019 2:33pm Start: 08-29-2018 End: 11-13-2018 Norgestimate-Ethinyl Estradi ol 0.18/0.215/0.25 mg-35 mcg (28) tablet Discontinued 1 {tbl} PO daily August 29, 2018 3:49pm November 13, 2018 8:27am Start: 08-29-2018 End: 11-13-2018 take 1 tablet by mouth once daily Norgestimate-Ethinyl Estradiol Discontinued 1 TABLET PO daily August 29, 2018 2:49pm November 13, 2018 7:27am Start: 08-29-2018 End: 11-13-2018 take 1 tablet by mouth once daily Norgestimate-Ethinyl Estradiol Discontinued 1 TABLET PO daily August 29, 2018 3:49pm November 13, 2018 8:27am Start: 02-01-2018 End: 08-29-2018 Norgestimate-Ethinyl Estradi ol 0.18/0.215/0.25 mg-35 mcg (28) tablet Discontinued 1 {tbl} PO daily February 01, 2018 12:24pm August 29, 2018 3:53pm Start: 02-01-2018 End: 08-29-2018 take 1 tablet by mouth once daily Norgestimate-Ethinyl Estradiol Discontinued 1 TABLET PO daily February 01, 2018 11:24am August 29, 2018 2:53pm Start: 02-01-2018 End: 08-29-2018 take 1 tablet by mouth once daily Norgestimate-Ethinyl Estradiol Discontinued 1 TABLET PO daily February 01, 2018 12:24pm August 29, 2018 3:53pm Start: 02-01-2018 End: 02-01-2018 take 1 tablet by mouth once daily Norgestimate-Ethinyl Estradiol Discontinued 1 TABLET PO daily February 01, 2018 10:27am February 01, 2018 12:24pm Start: 02-01-2018 End: 02-01-2018 Norgestimate-Ethinyl Estradi ol 0.18/0.215/0.25 mg-35 mcg (28) tablet Discontinued 1 {tbl} PO daily February 01, 2018 12:00am February 01, 2018 12:24pm Start: 02-01-2018 End: 02-01-2018 take 1 tablet by mouth once daily Norgestimate-Ethinyl Estradiol Discontinued 1 TABLET PO daily January 31, 2018 11:00pm February 01, 2018 11:24am Start: 02-01-2018 End: 02-01-2018 take 1 tablet by mouth once daily Norgestimate-Ethinyl Estradiol Discontinued 1 TABLET PO daily February 01, 2018 12:00am February 01, 2018 12:24pm propranolol hydrochloride 10 mg oral tablet (2 sources) beta-Adrenergic Landon Start: 02-28-2024 End: 05-23-2024 take 1 tablet by mouth twice daily Propranolol 10 mg tablet Discontinued 10 mg PO TWICE A DAY February 28, 2024 12:00am May 23, 2024 2:37pm topiramate 50 mg oral tablet (11 sources) Start: 08-29-2018 End: 01-07-2019 take 1 tablet by mouth once daily Topiramate 50 mg tablet Discontinued 50 mg PO DAILY August 29, 2018 12:00am January 07, 2019 2:13pm Problems Active Problems Problem Classification Problem Date Documented Date Episodic/Chronic Attention-deficit, conduct, and disruptive behavior disorders (1 source) Attention-deficit hyperactivity disorder, unspecified type; Translations: [Attention-deficit hyperactivity disorder, unspecified type] Onset: 11-17-2024 Chronic Menopausal disorders (11 sources) Menopausal and female climacteric states; Translations: [Symptomatic menopausal or female climacteric states] Chronic Menstrual disorders (20 sources) Menorrhagia; Translations: [Excessive and frequent menstruation with regular cycle] Chronic Comment on above: ultrasound Miscellaneous mental health disorders (20 sources) Binge eating disorder; Translations: [Binge eating disorder] Chronic Nonspecific chest pain (5 sources) Chest pain; Translations: [Chest pain, unspecified] 02-07-2023 Episodic Nutritional deficiencies (7 sources) Vitamin deficiency; Translations: [Vitamin deficiency, unspecified] 09-11-2022 Episodic Open wounds of extremities (11 sources) Laceration of left thumb; Translations: [Laceration without foreign body of left thumb without damage to nail, initial encounter] 04-24-2016 Episodic Other connective tissue disease (11 sources) Foot pain; Translations: [Pain in right foot] 06-01-2021 Episodic Other connective tissue disease (1 source) Pain in right foot; Translations: [Pain in limb] Episodic Other connective tissue disease (5 sources) Dupuytren's contracture; Translations: [Palmar fascial fibromatosis [Dupuytren]] 02-28-2024 Episodic Other nutritional; endocrine; and metabolic disorders (9 sources) Weight gain; Translations: [Abnormal weight gain] 08-29-2018 Episodic Other nutritional; endocrine; and metabolic disorders (2 sources) Weight increased; Translations: [Abnormal weight gain] 08-29-2018 Episodic Other screening for suspected conditions (not mental disorders or infectious disease) (15 sources) Patient encounter status; Translations: [Encounter for screening for malignant neoplasm of colon] Onset: 11-18-2024 03-08-2018 Episodic Residual codes; unclassified (11 sources) Flushing; Translations: [Flushing] 12-07-2020 Episodic Residual codes; unclassified (1 source) Family history of malignant neoplasm of trachea, bronchus and lung; Translations: [Family history of malignant neoplasm of trachea, bronchus, and lung] Episodic Residual codes; unclassified (2 sources) Flushing; Translations: [Flushing] Episodic Unclassified (2 sources) Dupuytren's contracture of both hands; Translations: [Eval and Treat] Past or Other Problems Problem Classification Problem Date Documented Da te Episodic/Chronic Other connective tissue disease (1 source) Palmar fascial fibromatosis [Dupuytren]; Translations: [Palmar fascial fibromatosis [Dupuytren]] Onset: 06-24-2024 Episodic Results Test Name Value Interpretation Reference Range Facility Amphetamine detection with 1 000 ng/mL as cutoffOrdered By: Eddi Calderon on 11-12-2024 Amphetamines Screen method >1000 ng/mL Ql (U) Positive <1000 ng/mL [facility] Comment on above: If confirmation test ing is needed, a separate order will be required to send out testing to the reference laboratory. Amphetamines Screen method >1000 ng/mL Ql (U) Negative < 200 ng/mL [facility] No Panel InformationOrdered By: Eddi Calderon on 11-12-2024 Urine Buprenorphine Qualitative Negative < 200 ng/mL [facility] Urine Oxycodone Screen Negative < 100 ng/mL [facility] Quantitative urine opiates m easurementOrdered By: Eddi Calderon on 11-12-2024 Opiates Ql (U) Negative < 300 ng/mL [facility] Screening urine fentanyl jeffery surementOrdered By: Eddi Caldeorn on 11-12-2024 fentaNYL Screen Ql (U) Negative [facility] Urine Drug Screen (VISTA)on 11-12-2024 AMPHETAMINES Positive Normal <1000 ng/mL [facility] Comment on above: Order Comment: UNK Result Comment: If c onfirmation testing is needed, a separate order will be required to send out testing to the reference laboratory. Performed By: #### L 505.5000 #### [facility] [address] [place], [address] BARBITIURATES Negative Normal < 200 ng/mL [facility] Comment on above: Order Comment: UNK Performed By: #### L 505.5000 #### [facility] [address] [place], [address] BENZODIAZIPINE Negative Normal < 200 ng/mL [facility] Comment on above: Order Comment: UNK Performed By: #### L [id number] #### [facility] [address] [place], [address] BUP Ur Drug Scr Negative Normal < 200 ng/mL [facility] Comment on above: Order Comment: UNK Performed By: #### L [id number] #### [facility] [address] [place], [address] COCAINE Negative Normal < 300 ng/mL [facility] Comment on above: Order Comment: UNK Performed By: #### L [id number] #### [facility] [address] [place] [address] Fentanyl Negative Normal [facility] Comment on above: Order Comment: UNK Performed By: #### L [id number] #### [facility] [address] [place] [address] METHADONE Negative Normal < 300 ng/mL [facility] Comment on above: Order Comment: UNK Performed By: #### L [id number] #### [facility] [address] [place] [address] OPIATES Negative Normal < 300 ng/mL [facility] Comment on above: Order Comment: UNK Performed By: #### L [id number] #### [facility] [place] [address] OXYCODONE Negative Normal < 100 ng/mL [facility] Comment on above: Order Comment: UNK Performed By: #### L [id number] #### [facility] [address] [place] [address] PCP Negative Normal < 25 ng/mL [facility] Comment on above: Order Comment: UNK Performed By: #### L [id number] #### [facility] [address] [place] [address] THC Negative Normal < 50 ng/mL [facility] Comment on above: Order Comment: UNK Performed By: #### L [id number] #### [facility] [address] [place] [address] Urine benzodiazepine levelOr dered By: Eddi Kvng on 11-12-2024 Benzodiazepines Ql (U) Negative < 200 ng/mL [facility] Urine cocaine levelOrdered B y: Eddi Kvng on 11-12-2024 Cocaine Ql (U) Negative < 300 ng/mL [facility] Urine [id number]-[id number] abinol (THC) measurementOrdered By: Eddi Calderon on 11-12-2024 Cannabinoids Screen Ql (U) Negative < 50 ng/mL [facility] Urine phencyclidine (PCP) de tectionOrdered By: Eddi Calderon on 11-12-2024 Phencyclidine Ql (U) Negative < 25 ng/mL [facility] OT D/C of Non Returning Pton 08-27-2024 OT D/C of Non Returning Pt [facility] [address] [place] [address] / REHABILITATION SERVICES DISCHARGE SUMMARY MR#: [id number] Acct: [id number] Name: MARTHA DIAS Rep #: [id number] : 1965 59 From: Alcira Pittman OTR/L, CHT Referring Dr.: Dr. Alverto Bailey MD Status: REG RCR Eval Date: Discharge Date: Patient Information Patient Information: MARTHA DIAS was seen in my office for initial evaluation on 05/30/24. The following Plan of Care was established for this patient: Anticipated Interventions Anticipated Interventions: A/AAROM/PROM, Edema Control and Orthoses Last Seen Last Seen: This patient was last seen in our office 05/30/24. Pertinent comments regarding their Occupational therapy will appear below: pt was seen for orthosis francisco. only. No further apts were scheduled. At this time pt d/c due to time lapse in services. At this point I will be discontinuing this patient from occupational therapy. I would be happy to see this patient again in the future if found appropriate by the physician. Thank you! Alcira Pittman, JULIR/L, CHT 08/27/24 1344 CC: MEDICAL REIMBURSEMENT MANAGER-C Eddi Calderon; Dr. Alverto Bailey MD MK Signed Normal [facility] Plastic Surgery Visit Report on 06-04-2024 Plastic Surgery Visit Report [facility] Plastic Reconstructive Surgery [address], [address] [place], [place] [address] OFFICE VISIT Date of Service: 06/04/24 MR#: [id number] Acct: [id number] Name: MARTHA DIAS Rep #: [id number] : 1965 Provider: EMILI enriquez Age/Sex: 59/F Location: [facility] [place] Status: Signed Pt seen evaluated w/JENSEN. I personally interviewed exam the pt. I was involved in all aspects of pt's orders, interpretation of results treatment Intake Vital Signs 3 05/29/24 13:12 06/04/24 09:52 Height 5 ft 8 in 5 ft 8 in BP 110/73 127/74 H Blood Pressure Location Rt brachial Rt brachial Position Sitting Sitting Respiration 18 16 Pulse 87 78 Pulse Source Monitor Temp 98 F 98.7 F Temp Source Oral Oral Pulse Oximetry (%) 98 100 Oxygen Delivery Method room air room air Intake Visit Reasons: 1 W FU Chief Complaint: 1 week follow up Is patient in pain?: No Allergies No Known Allergies Allergy (Verified 06/04/24 09:53) Medications 3 ???Medication ???Instructions ???Recorded ???Confirmed ???Type lisdexamfetamine 50 mg capsule 50 mg PO QDAY 02/28/24 06/04/24 History Nurse's Note: pt here for follow up xiaflex injection Subjective Details: Patient is 2 weeks post Xiaflex injection and one week post manipulation. She states that she is pleased with being able to straighten her fingers and with her ROM. She continues to have some discomfort with ROM. She states her swelling (especially in her small finger) is improving. She saw OT last week and they made her an extension splint to wear at night and gave her some exercises. She states she has a callus on the base of her small finger where it was contracted and she has been using an pumice stone on it to soften it. Objective Details: On exam, her left hand bruising is resolving. She has mild swelling of her left small finger. She has good ROM. She is able to straighten her hand and fingers and she is able to make a fist. She still has some firmness area where the cording was proximal to the left small finger. The other cording is almost completely resolved. Coding Level of Care Code Global Post Op Diagnoses Dupuytren contracture of both hands M72.0 [facility] Medical History History of back problems Alcohol use Restless legs Former smoker History of stress test Vitamin deficiency Right foot pain Hot flashes Dysmenorrhea Screening for colon cancer Surgical History History of wisdom tooth extraction History of appendectomy Hx of colonoscopy with polypectomy Hx of lumbosacral spine surgery Family History Mother Hypertension Pacemaker Lung cancer Other CLL (chronic lymphocytic leukemia) Social History household members: spouse and children current occupational status: employed current occupation: [employer] Smoking Status: Former smoker how long ago did patient quit smoking: quit 6 years ago alcohol intake: current alcohol intake frequency: a few times a month substance use type: does not use what type of physical activity do you participate in: walking frequency: 5-6 times per week seatbelt use: always do you feel safe at home: Yes additional social history: - Mandeep denies edibles, denies vaping,denies marijuana use, denies aspirin use, uses ibuprofen as needed Assessment and Plan (No Qualifiers) Assessment and Plan (1) Dupuytren contracture of both hands: Status: Acute Plan Patient is doing well with her range of motion. She will continue to wear her extension splint at bedtime. She will continue to do her hand exercises that OT has recommended. She follows up with OT before the end of the year for further evaluation. Recommend she NOT use a pumice stone on her finger, I do not want her to create a wound. Recommend massaging with lotion (She can use Urea 40 lotion to help soften the callus). Discussed plan of care with Dr. Bailey. She will follow up in one month. Instructed to call or come in sooner if develop any concerns. 06/05/24 1343 > Date Vicenta Littlejohn NP MEDICAL REIMBURSEMENT MANAGER-C 06/04/24 1305 Cosigner Signature: Date (if applicable) Alverto Bailey MD CC: Normal [facility] OT General Evaluationon 05-18 OT General Evaluation [facility] Occupational Therapy [facility] [place] [address] / REHABILITATION SERVICES INITIAL EVALUATION MR#: [id number] Acct: [id number] Name: MARTHA DIAS Rep #: [id number] : 1965 59 From: Alcira PETER/KELLY Clay Referring Dr.: Dr. Alverto Bailey MD Status: REG R Insurance: [facility] [id number] Eval Date: SELF PAY INSURANCE Patient's Visit Information Visit Information Visit Information: MARTHA DIAS is a 59 year old F, referred to Occupational Therapy by Dr. Alverto Bailey MD, with a diagnosis of left Dupuytren's contracture. Date of Evaluation: 05/30/24 Occupational Therapist: ROME Menchaca/KELLY Clay Subjective Subjective: This 59 year old female was seen for OT eval with dx of left LF and RF Dupuytren's contracture. pt arrives after having xiaflex injection and manipulation completed 05/29/23. Pt arrives today for custom orthosis ( paddle splint ) for night use- to ensure pt is not flexing fingers while in her sleep- Pt states since injection of xiaflex she has had increase pain- better today but swelling still an issue- pt states it is feeling better but still can not use her hand to the fullest due to swelling and soreness- Pain left hand: Current Pain Intensity: 5 Pain Intensity Range: 5 ROM ROM Comments: pt demo with left MCP ext of IF-MF-RF- LF all at -30* pt demo 1/ from composite fist ( swelling) therapist ed. pt on contrast bath and AROM ex to decrease swelling this session Quick DASH-Disab of Arm,Shoulder Hand Quick DASH Score: 60.0000 Goals Goal:ROM equal to unaffected hand: Yes Goal:No pain with affected hand use: Yes Goal:Full use of affected hand in daily activities including work: Yes Other Goal: pt will demo understanding of orthosis use for night for next 12 weeks by end of 1st session pt will demo IND doffing and donning of orthosis by end of 1st session Rehabilitation General Assessment: pt arrives after having xiaflex injection with manipulation on 05/29/24. pt demo with hand bruising and swelling- limited motion at this time and in need of custom orthosis paddle for night use- pt demo need for skilled OT services 2-3 visits to ensure recovery from procedure: Today therapist francisco. custom orthosis and ed. pt on on use. pt demo understand use of orthosis and to adj fit as swelling decreases. pt ed. on ROM , edema and return to use as tolerated. pt demo understanding and agree to POC. Rehabilitation Potential: Good Anticipated Interventions Anticipated Interventions: A/AAROM/PROM, Edema Control and Orthoses Visit Plan General Plan: orthosis for night use for 12 weeks-wean out after that time return for orthosis adj in 3 weeks initiate edema control ROM of flexion and extension of digits return to use of hand with ADLs TEXT: Thank you for the opportunity to evaluate your patient. For Medicare and Medicare HMO plans, please review the plan of care and approve it. It will need to be FAXED BACK to us at [phone] for Medicare purposes. Please let me know if there are questions or concerns regarding this plan of care. Physician Signature: Date: ____ 05/30/24 1205 CC: EMILI Calderon; Dr. Alverto Bailey MD ZAINA Signed For Medicare only, by signing this I certify the plan of care. ____ Physicians Signature Date Normal [facility] Plastic Surgery Visit Report on 05-29-2024 Plastic Surgery Visit Report [facility] Plastic Reconstructive Surgery [address], [address] [place] [address] OFFICE VISIT Date of Service: 05/29/24 MR#: [id number] Acct: [id number] Name: MARTHA DIAS Rep #: [id number] : 1965 Provider: Dr. Alverto Bailey MD Age/Sex: 59/F Location: [facility] Status: Signed with Addenda ADDENDUM by Dr. Alverto Bailey MD on 06/26/24 at 1609 Assessment and Plan (No Qualifiers) Assessment and Plan (1) Dupuytren contracture of both hands: Status: Acute Plan: CORRECTION OFFICIAL Two 90 mg vials were used for two separate cords. 58 units were injected, 32 units discarded (per vial used) 06/26/24 1609 Date Alverto Bailey MD cc: * Signed ADDENDUM by Dr. Alverto Bailey MD on 06/26/24 at 1609 Assessment and Plan (No Qualifiers) Assessment and Plan (1) Dupuytren contracture of both hands: Status: Acute Plan: CORRECTION OFFICIAL Two 90 mg vials were used for two separate cords. 58 units were injected, 32 units discarded (per vial used) 06/26/24 1609 Date Alverto Bailey MD cc: * Signed ADDENDUM by Dr. Alverto Bailey MD on 06/26/24 at 1558 Assessment and Plan (No Qualifiers) Assessment and Plan (1) Dupuytren contracture of both hands: Status: Acute Plan: Correction: All units were injected (90 mg) 06/26/24 1558 Date Alverto Bailey MD cc: * Signed Intake Vital Signs 02/28/24 11:05 05/23/24 13:37 05/29/24 13:12 Height 5 ft 8 in 5 ft 8 in 5 ft 8 in Weight: 140 lb BMI 21.2 BP 115/71 110/73 Blood Pressure Location Rt brachial Rt brachial Position Sitting Sitting Respiration 16 18 Pulse 77 87 Pulse Source Monitor Temp 97.9 F 98 F Temp Source Oral Oral Pulse Oximetry (%) 97 98 Oxygen Delivery Method room air room air Intake Visit Reasons: Xiaflex Manipulation Chief Complaint: xiaflex manipulation Is patient in pain?: Yes (left hand ) Pain scale (1-10): 6 Allergies No Known Allergies Allergy (Verified 05/29/24 13:11) Medications ???Medication ???Instructions ???Recorded ???Confirmed ???Type lisdexamfetamine 50 mg capsule 50 mg PO QDAY 02/28/24 05/29/24 History collagenase clostridium histo. 0.9 mg intralesional 05/23/24 05/29/24 History mg solution for injection (Xiaflex) Nurse's Note: xiaflex manipulation [facility] Medical History History of back problems Alcohol use Restless legs Former smoker History of stress test Vitamin deficiency Right foot pain Hot flashes Dysmenorrhea Screening for colon cancer Surgical History History of wisdom tooth extraction History of appendectomy Hx of colonoscopy with polypectomy Hx of lumbosacral spine surgery Family History Mother Hypertension Pacemaker Lung cancer Other CLL (chronic lymphocytic leukemia) Social History household members: spouse and children current occupational status: employed current occupation: [employer] Smoking Status: Former smoker how long ago did patient quit smoking: quit 6 years ago alcohol intake: current alcohol intake frequency: a few times a month substance use type: does not use what type of physical activity do you participate in: walking frequency: 5-6 times per week seatbelt use: always do you feel safe at home: Yes additional social history: - Mandeep denies edibles, denies vaping,denies marijuana use, denies aspirin use, uses ibuprofen as needed HPI Xiaflex Manipulation Details: Doing well. Tolerated injection. Reports a straighter finger. Exam Details Some bruising. Coding Level of Care Code Attention Tara Diagnoses Dupuytren contracture of both hands M72.0 Comment See procedure CPT codes above Assessment and Plan (No Qualifiers) Assessment and Plan (1) Dupuytren contracture of both hands: Status: Acute Plan Xiaflex Injection PROCEDURE: 1) Manipulation of the ring and small finger MCP joints on the left hand (CPT 93005 x 2 units) Preoperative Diagnosis: Dupuytren's contracture of the left small and ring finger(s) Post-op Diagnosis: Same Indications: Injection done 6 days ago. 58 units infected, 32 units discarded (per vial used) Procedure details: Patient was correctly identified and signed her consent. Proper digits were marked and a local block was administered with 15 cc of a 50/50 mixture of 1% lidocaine and 0.25% Marcaine. It was given time to take effect. The left small and ring fingers were manipu (more content not included)... Normal [facility] Plastic Surgery Visit Report on 05-23-2024 Plastic Surgery Visit Report [facility] Plastic Reconstructive Surgery [address], [address] [place] [address] OFFICE VISIT Date of Service: 05/23/24 MR#: [id number] Acct: [id number] Name: MARTHA DIAS Rep #: [id number] : 1965 Provider: Dr. Alverto Bailey MD Age/Sex: 59/F Location: [facility] Status: Signed with Addenda ADDENDUM by Dr. Alverto Bailey MD on 06/19/24 at 1636 Assessment and Plan (No Qualifiers) Assessment and Plan (1) Dupuytren contracture of both hands: Status: Acute Plan: No medicine discarded Injected as documented (0.9 in both cords) 06/19/24 1636 Date Alverto Bailey MD cc: * Signed ADDENDUM by Dr. Alverto Bailey MD on 05/23/24 at 1643 Assessment and Plan (No Qualifiers) Assessment and Plan (1) Dupuytren contracture of both hands: Status: Acute Plan: lidocaine 1% [facility] 3789-2242-29 lot [id number] exp Xiaflex -nd 62478-179-59, lot [id number] 2025, [place] [address]-471-36 lot [id number], 2027 xiaflex ndc 49715-223-48 lot [id number] 2025 , sterile dilute ndc 98125-556-42 lot [id number] exp 202705/23/24 1643 Date Alverto Bailey MD cc: * Signed Intake Vital Signs 3 02/28/24 11:05 05/23/24 13:37 Height 5 ft 8 in 5 ft 8 in Weight: 140 lb 139 lb BMI 21.2 21.1 BP 115/71 111/69 Blood Pressure Location Rt brachial Rt brachial Position Sitting Sitting Respiration 16 17 Pulse 77 79 Pulse Source Monitor Temp 97.9 F 97.8 F Temp Source Oral Oral Pulse Oximetry (%) 97 98 Oxygen Delivery Method room air room air Intake Visit Reasons: Xiaflex Injection Chief Complaint: dupuytrens xiaflex injection Allergies No Known Allergies Allergy (Verified 05/23/24 13:32) Medications 3 ???Medication ???Instructions ???Recorded ???Confirmed ???Type lisdexamfetamine 50 mg capsule 50 mg PO QDAY 02/28/24 05/23/24 History collagenase clostridium histo. 0.9 mg intralesional 05/23/24 05/23/24 History mg solution for injection (Xiaflex) [facility] Medical History History of back problems Alcohol use Restless legs Former smoker History of stress test Vitamin deficiency Right foot pain Hot flashes Dysmenorrhea Screening for colon cancer Surgical History History of wisdom tooth extraction History of appendectomy Hx of colonoscopy with polypectomy Hx of lumbosacral spine surgery Family History Mother Hypertension Pacemaker Lung cancer Other CLL (chronic lymphocytic leukemia) Social History household members: spouse and children current occupational status: employed current occupation: [employer] Smoking Status: Former smoker how long ago did patient quit smoking: quit 6 years ago alcohol intake: current alcohol intake frequency: a few times a month substance use type: does not use what type of physical activity do you participate in: walking frequency: 5-6 times per week seatbelt use: always do you feel safe at home: Yes additional social history: - Mandeep denies edibles, denies vaping,denies marijuana use, denies aspirin use, uses ibuprofen as needed HPI Xiaflex Injection Details: lidocaine 1% [facility] 7585-7033-63 lot [id number] exp Xiaflex -ndc 06453-322-87, lot [id number] exp 2025, sterile dilute ndc 22611-729-05 lot [id number], 2027 xiaflex ndc 87375-214-81 lot [id number] exp 2025 , sterile dilute ndc 51640-900-74 lot [id number] exp 2027 Martha Dias is a delightful R hand dominant 58 YO FM who presents with a chief complaint of left small and middle finger dupuytren's contractures. The patient reports having difficulty performing activities of daily living such as putting on gloves and face washing due to finger flexion contracture. The patient has had needle percutaneous aponeurotomy of her left small finger (LSF) Dupuytren's flexion contracture (2 years ago at [facility] - Recurred shortly afterwards - limited post op therapy protocol per patient). She is not interested in this treatment again as she said it hurt while the needle was being passed. 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 Current Encounter, 23 May 2024: Here for Xiaflex injection. No change in health history since last seen . Exam Details PE: Exam of the Left upper limb revealed: (-) tenderness to palpation over (more content not included)... Normal [facility] Plastic Surgery Visit Report on 02-28-2024 Plastic Surgery Visit Report [facility] Plastic Reconstructive Surgery [address], [address] [place], [place] [id number] OFFICE VISIT Date of Service: 02/28/24 MR#: [id number] Acct: [id number] Name: MARTHA DIAS Rep #: [id number] : 1965 Provider: Dr. Alverto Bailey MD Age/Sex: 58/F Location: [facility] Status: Signed with Addenda ADDENDUM by Dr. Alverto Bailey MD on 02/28/24 at 1153 Assessment and Plan (No Qualifiers) Assessment and Plan (1) Dupuytren contracture of both hands: Status: Acute Plan: On my exam, she has no FDS to the small finger on either side. 02/28/24 1153 Date Alverto Bailey MD cc: * Signed Intake Vital Signs 3 05/22/23 13:32 02/28/24 11:05 Height 5 ft 9 in 5 ft 8 in Weight: 145 lb 140 lb BMI 21.4 21.2 BP 115/71 Blood Pressure Location Rt brachial Position Sitting Respiration 16 Pulse 77 Temp 97.9 F Temp Source Oral Pulse Oximetry (%) 97 Oxygen Delivery Method room air Intake Visit Reasons: Dupuytrens Chief Complaint: dupuytrens bilteral Is patient in pain?: Yes (1/10 hands dull ache) Allergies No Known Allergies Allergy (Verified 02/28/24 11:02) Medications 3 ???Medication ???Instructions ???Recorded ???Confirmed ???Type doxycycline hyclate 100 mg tablet 100 mg PO BID 02/28/24 02/28/24 History lisdexamfetamine 50 mg capsule 50 mg PO QDAY 02/28/24 02/28/24 History oxycodone-acetaminophen 5 mg-325 1 tab PO 4X/DAY PRN 02/28/24 02/28/24 History mg tablet propranolol 10 mg tablet 10 mg PO BID 02/28/24 History Have you fallen in the past year?: No PFSH Medical History History of back problems Alcohol use Restless legs Former smoker History of stress test Vitamin deficiency Right foot pain Hot flashes Dysmenorrhea Screening for colon cancer Surgical History History of wisdom tooth extraction History of appendectomy Hx of colonoscopy with polypectomy Hx of lumbosacral spine surgery Family History Mother Hypertension Pacemaker Lung cancer Other CLL (chronic lymphocytic leukemia) Social History (Updated 02/28/24 @ 11:04 by Giselle Ware) household members: spouse and children current occupational status: employed current occupation: [employer] Smoking Status: Former smoker how long ago did patient quit smoking: quit 6 years ago alcohol intake: current alcohol intake frequency: a few times a month substance use type: does not use what type of physical activity do you participate in: walking frequency: 5-6 times per week seatbelt use: always do you feel safe at home: Yes additional social history: - Mandeep denies edibles, denies vaping,denies marijuana use, denies aspirin use, uses ibuprofen as needed HPI Dupuytrens Details: CC: Contractures of her left small and long fingers. HPI: Martha Dias is a delightful R hand dominant 58 YO FM who presents with a chief complaint of left small and middle finger dupuytren's contractures. The patient reports having difficulty performing activities of daily living such as putting on gloves and face washing due to finger flexion contracture. The patient has had needle percutaneous aponeurotomy of her left small finger (LSF) Dupuytren's flexion contracture (2 years ago at [facility] - Recurred shortly afterwards - limited post op therapy protocol per patient). She is not interested in this treatment again as she said it hurt while the needle was being passed. 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 ROS General General: Yes good health; No fatigue, fever(s) or weight loss HENMT HENMT: No rhinitis, sore throat/mouth sore, nasal congestion, contacts or glaucoma Endo Endocrine: No thyroid disease, polydipsia, heat intolerance, cold intolerance, hepatitis or excessive urine Skin Skin: No Bleeding, bruising, changing moles or suspicious lesion Musc Musculoskeletal: Yes muscle weakness and back pain; No joint pain, joint stiffness, osteoarthritis or Muscle aches/ myalgia Neuro Neurological: No headache(s), Yes lightheadedness and No numbness Cardio Cardiovascular: No chest pain, pacemaker, fatigue or shortness of breat with exertion Psych Psychiatric: No depression, claustrophobia or anxiety Resp Respiratory: No spitting up, shortness of breath, sleep apnea, asthma, emphysema, TB, Cough or Smoker Gastro Gastrointestinal: No diarrhea, constipation, blood (more content not included)... Normal [facility] CBC W Auto Differential pane l (Bld)on 07-11-2023 Basophils (Bld) [#/Vol] 0.07 10*3/uL Normal <0.11 [facility] Comment on above: Order Comment: Marce sullivan Type: BLOOD SPECIMEN Ordering Facility: [facility] Address: [address] [place] [address] Performed By: #### 5 7021-8 #### [facility] CLIA [id number] [address] [place] [address] [place] Basophils/100 WBC (Bld) 0.8 % Normal [facility] Comment on above: Order Comment: Gabii nate Type: BLOOD SPECIMEN Ordering Facility: [facility] Address: [address] [place] [address] Performed By: #### 5 7021-8 #### [facility] CLIA [id number] [address] [place] [address] [place] Differential cell count method Nom (Bld) Auto Normal [facility] Comment on above: Order Comment: Speci men Type: BLOOD SPECIMEN Ordering Facility: [facility] Address: [address] [place] [address], [place] [address] Performed By: #### 5 7021-8 #### [facility] CLIA [id number] [address] [place] [address] [place] Eosinophils (Bld) [#/Vol] 0.15 10*3/uL Normal <0.46 [facility] Comment on above: Order Comment: Speci men Type: BLOOD SPECIMEN Ordering Facility: [facility] Address: [address] [place] [address] Performed By: #### 5 7021-8 #### [facility] CLIA [id number] [address] [place] [address] [place] Eosinophils/100 WBC (Bld) 1.8 % Normal [facility] Comment on above: Order Comment: Speci men Type: BLOOD SPECIMEN Ordering Facility: [facility] Address: [address] [place] [address] Performed By: #### 5 7021-8 #### [facility] CLIA [id number] [address] [place] [address] [place] Erythrocyte distribution width (RBC) [Ratio] 13.0 % Normal 11.5-15.0 [facility] Comment on above: Order Comment: Speci men Type: BLOOD SPECIMEN Ordering Facility: [facility] Address: [address] [place] [address], [place] [address] Performed By: #### 5 7021-8 #### [facility] CLIA [id number] [address] [place] [address] [place] Hematocrit (Bld) [Volume fraction] 41.8 % Normal 36.0-46.0 [facility] Comment on above: Order Comment: Speci men Type: BLOOD SPECIMEN Ordering Facility: [facility] Address: [address] [place] [address], [place] [address] Performed By: #### 5 7021-8 #### [facility] CLIA [id number] [address] [place] [id number] [place] Hemoglobin (Bld) [Mass/Vol] 13.2 g/dL Normal 11.5-15.5 [facility] Comment on above: Order Comment: Speci men Type: BLOOD SPECIMEN Ordering Facility: [facility] Address: [address] [place] [address] Performed By: #### 5 7021-8 #### [facility] CLIA [id number] [address] [place] [address] [place] Immature granulocytes (Bld) [#/Vol] 0.03 10*3/uL Normal <0.10 [facility] Comment on above: Order Comment: Speci men Type: BLOOD SPECIMEN Ordering Facility: [facility] Address: [address] [place] [address] Performed By: #### 5 7021-8 #### [facility] CLIA [id number] [address] [place] [address] [place] Immature granulocytes/100 WBC (Bld) 0.4 % Normal [facility] Comment on above: Order Comment: Speci men Type: BLOOD SPECIMEN Ordering Facility: [facility] Address: [address] [place] [address] Performed By: #### 5 7021-8 #### [facility] CLIA [id number] [address] [place] [address] [place] Lymphocytes (Bld) [#/Vol] 2.93 10*3/uL Normal 1.00-4.00 [facility] Comment on above: Order Comment: Speci men Type: BLOOD SPECIMEN Ordering Facility: [facility] Address: [address] [place] [address] Performed By: #### 5 7021-8 #### [facility] CLIA [id number] [address] [place] [address] [place] Lymphocytes/100 WBC (Bld) 34.9 % Normal [facility] Comment on above: Order Comment: Speci men Type: BLOOD SPECIMEN Ordering Facility: [facility] Address: [address] [place] [address] Performed By: #### 5 7021-8 #### [facility] CLIA [id number] [address] [place] [address] [place] MCH (RBC) [Entitic mass] 28.6 pg Normal 26.0-34.0 [facility] Comment on above: Order Comment: Speci men Type: BLOOD SPECIMEN Ordering Facility: [facility] Address: [address] [place] [address] Performed By: #### 5 7021-8 #### [facility] CLIA [id number] [address] [place] [address] [place] MCHC (RBC) [Mass/Vol] 31.6 g/dL Normal 30.5-36.0 [facility] Comment on above: Order Comment: Speci men Type: BLOOD SPECIMEN Ordering Facility: [facility] Address: [address] [place] [address] Performed By: #### 5 7021-8 #### [facility] CLIA [id number] [address] [place] [address] [place] MCV (RBC) [Entitic vol] 90.7 fL Normal 80.0-100.0 [facility] Comment on above: Order Comment: Speci men Type: BLOOD SPECIMEN Ordering Facility: [facility] Address: [address] [place] [address] Performed By: #### 5 7021-8 #### [facility] CLIA [id number] [address] [place] [address] [place] Monocytes (Bld) [#/Vol] 0.48 10*3/uL Normal <0.87 [facility] Comment on above: Order Comment: Speci men Type: BLOOD SPECIMEN Ordering Facility: [facility] Address: [address] [place] [address] Performed By: #### 5 7021-8 #### [facility] CLIA [id number] [address] [place] [address] [place] Monocytes/100 WBC (Bld) 5.7 % Normal [facility] Comment on above: Order Comment: Speci men Type: BLOOD SPECIMEN Ordering Facility: [facility] Address: [address] [place] [address] Performed By: #### 5 7021-8 #### [facility] CLIA [id number] [address] [place] [address] [place] Neutrophils (Bld) [#/Vol] 4.74 10*3/uL Normal 1.45-7.50 [facility] Comment on above: Order Comment: Speci men Type: BLOOD SPECIMEN Ordering Facility: [facility] Address: [address] [place] [address] Performed By: #### 5 7021-8 #### [facility] CLIA [id number] [address] [place] [address] [place] Neutrophils/100 WBC (Bld) 56.4 % Normal [facility] Comment on above: Order Comment: Speci men Type: BLOOD SPECIMEN Ordering Facility: [facility] Address: [address] [place] [address] Performed By: #### 5 7021-8 #### [facility] CLIA [id number] [address] [place] [address] [place] Nucleated RBC (Bld) [#/Vol] 10*3/uL Normal <0.01 [facility] Comment on above: Order Comment: Speci men Type: BLOOD SPECIMEN Ordering Facility: [facility] Address: [address] [place] [address] Performed By: #### 5 7021-8 #### [facility] CLIA [id number] [address] [place] [address] [place] Nucleated RBC/100 WBC (Bld) [Ratio] 0.0 /100 WBC Normal [facility] Comment on above: Order Comment: Speci men Type: BLOOD SPECIMEN Ordering Facility: [facility] Address: [address] [place] [address] Performed By: #### 5 7021-8 #### [facility] CLIA [id number] [address] [place] [address] [place] Platelet mean volume (Bld) [Entitic vol] 9.3 fL Normal 9.0-12.7 [facility] Comment on above: Order Comment: Speci men Type: BLOOD SPECIMEN Ordering Facility: [facility] Address: [address] [place] [address] Performed By: #### 5 7021-8 #### [facility] CLIA [id number] [address] [place] [address] [place] Platelets (Bld) [#/Vol] 427 10*3/uL High 150-400 [facility] Comment on above: Order Comment: Speci men Type: BLOOD SPECIMEN Ordering Facility: [facility] Address: [address] [place] [address] Performed By: #### 5 7021-8 #### [facility] CLIA [id number] [address] [place] [address] [place] RBC (Bld) [#/Vol] 4.61 10*6/uL Normal 3.90-5.20 [facility] Comment on above: Order Comment: Speci men Type: BLOOD SPECIMEN Ordering Facility: [facility] Address: [address] [place] [address] Performed By: #### 5 7021-8 #### [facility] CLIA [id number] [address] [place] [address] [place] WBC (Bld) [#/Vol] 8.40 10*3/uL Normal 3.70-11.00 [facility] Comment on above: Order Comment: Speci men Type: BLOOD SPECIMEN Ordering Facility: [facility] Address: [address] [place] [address], [place] [address] Performed By: #### 5 7021-8 #### [facility] CLIA [id number] [address] [place] [address] [place] Comprehensive metabolic 2000 panelon 07-11-2023 Albumin [Mass/Vol] 4.2 g/dL Normal 3.9-4.9 [facility] Comment on above: Order Comment: Speci men Type: BLOOD SPECIMEN Ordering Facility: [facility] Address: [address] [place] [address], [place] [address] Performed By: #### 2 4323-8, 3016-3 #### [facility] CLIA [id number] [address] [place] [address] [place] ALP [Catalytic activity/Vol] 58 U/L Normal 34-123 [facility] Comment on above: Order Comment: Speci men Type: BLOOD SPECIMEN Ordering Facility: [facility] Address: [address] [place] [address], [place] [address] Performed By: #### 2 4323-8, 3016-3 #### [facility] CLIA [id number] [address] [place] [address] [place] ALT [Catalytic activity/Vol] 19 U/L Normal 7-38 [facility] Comment on above: Order Comment: Speci men Type: BLOOD SPECIMEN Ordering Facility: [facility] Address: [address] [place] [address], [place] [id number] Performed By: #### 2 4323-8, 3016-3 #### [facility] CLIA [id number] [address] [place] [id number] [place] Anion gap [Moles/Vol] 12 mmol/L Normal 9-18 [facility] Comment on above: Order Comment: Speci men Type: BLOOD SPECIMEN Ordering Facility: [facility] Address: [address], [place] [address] Performed By: #### 2 4323-8, 3016-3 #### [facility] CLIA [id number] [address] [place] [address] [place] AST [Catalytic activity/Vol] 23 U/L Normal 13-35 [facility] Comment on above: Order Comment: Speci men Type: BLOOD SPECIMEN Ordering Facility: [facility] Address: [address], [place] [address] Performed By: #### 2 4323-8, 6-3 #### [facility] CLIA [id number] [address] [place] [address] [place] Bilirubin [Mass/Vol] 0.2 mg/dL Normal 0.2-1.3 [facility] Comment on above: Order Comment: Speci men Type: BLOOD SPECIMEN Ordering Facility: [facility] Address: [address], [place] [address] Performed By: #### 2 4323-8, 6-3 #### [facility] CLIA [id number] [address] [place] [address] [place] Calcium [Mass/Vol] 10.1 mg/dL Normal 8.5-10.2 [facility] Comment on above: Order Comment: Speci men Type: BLOOD SPECIMEN Ordering Facility: [facility] Address: [address], [place] [address] Performed By: #### 2 4323-8, 3016-3 #### [facility] CLIA [id number] [address] [place], [place] [id number] [place] Chloride [Moles/Vol] 104 mmol/L Normal 97-105 [facility] Comment on above: Order Comment: Speci men Type: BLOOD SPECIMEN Ordering Facility: [facility] Address: [address], [place] [address] Performed By: #### 2 4323-8, 3016-3 #### [facility] CLIA [id number] [address] [place] [address] [place] CO2 [Moles/Vol] 26 mmol/L Normal 22-30 [facility] Comment on above: Order Comment: Speci men Type: BLOOD SPECIMEN Ordering Facility: [facility] Address: [address] [place] [address] Performed By: #### 2 4323-8, 6-3 #### [facility] CLIA [id number] [address] [place] [address] OF [facility] Creatinine [Mass/Vol] 1.04 mg/dL High 0.58-0.96 [facility] Comment on above: Order Comment: Speci men Type: BLOOD SPECIMEN Ordering Facility: [facility] Address: [address] [place] [address] Performed By: #### 2 4323-8, 3015-3 #### [facility] CLIA [id number] [address] [place] [address] Creatinine and Glomerular filtration rate.predicted panel (S/P/Bld) 63 mL/min/1.73m??? Normal >=60 [facility] Comment on above: Order Comment: Speci men Type: BLOOD SPECIMEN Ordering Facility: [facility] Address: [address] [place] [address] Result Comment: Renee mated Glomerular Filtration Rate (eGFR) is calculated using the 2020 CKD-EPI creatinine equation. This equation utilizes serum creatinine, sex, and age as parameters. The creatinine assay has traceable calibration to isotope dilution-mass spectrometry. Refer to KDIGO guidelines for clinical interpretation. In patients with unstable renal function, e.g. those with acute kidney injury, the eGFR may not accurately reflect actual GFR. Performed By: #### 2 4323-8, 6-3 #### [facility] CLIA [id number] [address] [id number] [address] [place] Glucose [Mass/Vol] 87 mg/dL Normal 74-99 [facility] Comment on above: Order Comment: Speci men Type: BLOOD SPECIMEN Ordering Facility: [facility] Address: [address] [place] [address], [place] [address] Result Comment: The [place] [employer] (ADA) provides guidance for cutoff values for fasting glucose and random glucose. The ADA defines fasting as no caloric intake for at least 8 hours. Fasting plasma glucose results between 100 to 125 mg/dL indicate increased risk for diabetes (prediabetes). Fasting plasma glucose results greater than or equal to 126 mg/dL meet the criteria for diagnosis of diabetes. In the absence of unequivocal hyperglycemia, results should be confirmed by repeat testing. In a patient with classic symptoms of hyperglycemia or hyperglycemic crisis, random plasma glucose results greater than or equal to 200 mg/dL meet the criteria for diagnosis of diabetes. Reference: Standards of Medical Care in Diabetes 2016, [place] [employer]. Diabetes Care. 2016.39(Suppl 1). Performed By: #### 2 4323-8, 6-3 #### [facility] CLIA [id number] [address] [place] [address] [place] Potassium [Moles/Vol] 4.5 mmol/L Normal 3.7-5.1 [facility] Comment on above: Order Comment: Marce sullivan Type: BLOOD SPECIMEN Ordering Facility: [facility] Address: [address] [place] [address], [place] [address] Performed By: #### 2 4323-8, 6-3 #### [facility] CLIA [id number] [address] [place] [id number] [place] Protein [Mass/Vol] 7.3 g/dL Normal 6.3-8.0 [facility] Comment on above: Order Comment: Marce sullivan Type: BLOOD SPECIMEN Ordering Facility: [facility] Address: [address] [place] [address], [place] [address] Performed By: #### 2 4323-8, 3016-3 #### [facility] CLIA [id number] [address] [place] [address] [place] Sodium [Moles/Vol] 142 mmol/L Normal 136-144 [facility] Comment on above: Order Comment: Speci men Type: BLOOD SPECIMEN Ordering Facility: [facility] Address: [address] [place] [address] Performed By: #### 2 4323-8, 3016-3 #### [facility] CLIA [id number] [address] [place] [address] [place] Urea nitrogen [Mass/Vol] 15 mg/dL Normal 7-21 [facility] Comment on above: Order Comment: Speci men Type: BLOOD SPECIMEN Ordering Facility: [facility] Address: [address] [place] [address] Performed By: #### 2 4323-8, 3016-3 #### [facility] CLIA [id number] [address] [place] [address] [place] TSH SerPl-aCncon 07-11-2023 TSH Qn 2.910 m[IU]/L Normal 0.270-4.200 [facility] Comment on above: Order Comment: Speci men Type: BLOOD SPECIMEN Ordering Facility: [facility] Address: [address] [place] [address] Performed By: #### 2 4323-8, 3016-3 #### [facility] CLIA [id number] [address] [place] [address] [place] Absolute lymphocyte countOrd ered By: Darien Egan on 02-07-2023 Lymphocytes Auto (Unsp spec) [#/Vol] 2.08 10*3/uL 0.83-4.51 [facility] Basophil percentageOrdered B y: Darien Egan on 02-07-2023 Basophils/100 WBC (Bld) 1.0 % 0-1 [facility] Chloride [Moles/Vol] 110 mmol/L 98-107 [facility] Eosinophils/100 WBC (Bld) 1.0 % 0-5 [facility] Glucose [Mass/Vol] 98 mg/dL 74-106 [facility] Neutrophils (Bld) [#/Vol] 3.3 10*3/uL 2.0-7.7 [facility] Neutrophils/100 WBC (Bld) 53.8 % 47-70 [facility] Potassium [Moles/Vol] 4.6 mmol/L 3.5-5.1 [facility] Sodium [Moles/Vol] 143 mmol/L 136-145 [facility] WBC (Bld) [#/Vol] 6.0 10*3/uL 4.4-11.0 [facility] Blood erythrocytes count (nu mber/volume)Ordered By: Darien Egan on 02-07-2023 RBC (Bld) [#/Vol] 4.25 10*6/uL 4.2-5.4 [facility] Blood hemoglobin measurement (mass/volume)Ordered By: Darien Egan on 02-07-2023 Hemoglobin (Bld) [Mass/Vol] 11.9 g/dL 12.0-15.0 [facility] Blood lymphocytes/100 leukoc ytesOrdered By: Darien Egan on 02-07-2023 Lymphocytes/100 WBC (Bld) 34.5 % 19-41 [facility] Blood monocytes/100 leukocyt esOrdered By: Darien Egan on 02-07-2023 Monocytes/100 WBC (Bld) 9.5 % 0-10 [facility] Blood platelet mean volumeOr dered By: Darien Egan on 02-07-2023 Platelet mean volume (Bld) [Entitic vol] 8.1 fL 6.2-12.0 [facility] Determination of erythrocyte mean corpuscular volume (MCV)Ordered By: Darien Egan on 02-07-2023 MCV (RBC) [Entitic vol] 88.9 fL 81-99 [facility] Hematocrit Auto (Bld) [Volum e fraction]Ordered By: Darien Egan on 02-07-2023 Hematocrit (Bld) [Volume fraction] 37.8 % 37-47 [facility] Laboratory - Chemistry and C hemistry - challengeOrdered By: Darien Egan on 02-07-2023 CO2 [Moles/Vol] 28.0 mmol/L 21.0-32.0 [facility] Urea nitrogen/Creatinine [Mass ratio] 22.3 mg/mg 10-20 [facility] Laboratory - Hematology and Cell countsOrdered By: Darein Egan on 02-07-2023 Erythrocyte distribution width (RBC) [Entitic vol] 43.3 fL 35.1-43.9 [facility] Erythrocyte distribution width (RBC) [Ratio] 13.3 % 11.6-14.6 [facility] Immature granulocytes/100 WBC (Bld) 0.200 % 0.0-0.9 [facility] Comment on above: IG% - Immature Granu locytes (promyelocytes, myelocytes and metamyelocytes) > 1% indicates that a LEFT SHIFT is Present. MCH (RBC) [Entitic mass] 28.0 pg 27.0-32.0 [facility] Nucleated RBC/100 WBC (Bld) [Ratio] 0 % 0-5 [facility] MCHC Auto (RBC) [Mass/Vol]Or dered By: Darien Egan on 02-07-2023 MCHC (RBC) [Mass/Vol] 31.5 g/dL 32-36 [facility] No Panel InformationOrdered By: Darien Egan on 02-07-2023 Estimated Creatinine Clearance Calc 70.67 ml/min [facility] Estimated GFR (MDRD) Amer 79 mL/min >60 [facility] Comment on above: GFR Calc Estimated GFR (MDRD) Non-Af Amer 65 mL/min >60 [facility] Comment on above: Non- GFR Calc Troponin I High Sensitivity 4 pg/mL 3.0-54.0 [facility] Comment on above: Please Note: [place] t Units and Gender Specific Reference Ranges. For more information see Policy Stat Procedure [place] High Sensitivity Troponin (TNIH) and attachments. Platelets bldOrdered By: Aundrea Egan on 02-07-2023 Platelets (Bld) [#/Vol] 272 10*3/uL 150-450 [facility] Serum or plasma calcium ramona urement (mass/volume)Ordered By: Darien Egan on 02-07-2023 Calcium [Mass/Vol] 8.6 mg/dL 8.5-10.1 [facility] Serum or plasma creatinine m easurement (mass/volume)Ordered By: Darien Egan on 02-07-2023 Creatinine [Mass/Vol] 0.94 mg/dL 0.55-1.02 [facility] Comment on above: The validity of the calculated GFR & GFRAA in patients over 70 years has not been determined. Clinical correlation is essential. Serum or plasma urea nitroge n measurement (mass/volume)Ordered By: Darien Egan on 02-07-2023 Urea nitrogen [Mass/Vol] 21 mg/dL 7-18 [facility] Thin prep Papanicolaou smear with manual screeningOrdered By: Darien Egan on 02-07-2023 Thin prep Papanicolaou smear with manual screening 5 5-15 [facility] Laboratory - Drug toxicology Ordered By: Eddi Calderon on 12-14-2022 Amphetamines Ql (U) Positive <1000 ng/mL [facility] Benzodiazepines Ql (U) Negative < 200 ng/mL [facility] Cannabinoids Screen Ql (U) Negative < 50 ng/mL [facility] Cocaine Ql (U) Negative < 300 ng/mL [facility] Opiates Ql (U) Negative < 300 ng/mL [facility] No Panel InformationOrdered By: Eddi Calderon on 12-14-2022 MDMA (Ecstasy) Screen Negative < 500 ng/mL [facility] Urine Barbiturates Screen Negative < 200 ng/mL [facility] Urine Drug Screen Comment [facility] Comment on above: CONFIRMATORY TESTING FOR ALL POSITIVE URINE DRUG SCREENRESULTS WILL ONLY BE SENT OUT UPON PHYSICIAN ORDER. [facility]ISTA Urine Drug Screen methods provide only preliminaryanalytical test results. A more specific alternate chemicalmethod must be used in order to obtain a confirmedanalytical result. Gas chromatography/mass spectrometery(GC/MS) is the preferred confirmatory method. Clinicalconsideration and professional judgement should be appliedto any drug of abuse test result, particularly whenpreliminary positive results are used. URINE TCA TESTING MUST BE ORDERED SEPARATELY. USE TESTMNEMONIC: [facility] Urine Methadone Screen Negative < 300 ng/mL [facility] Urine phencyclidine (PCP) de tectionOrdered By: Eddi Calderon on 12-14-2022 Phencyclidine Ql (U) Negative < 25 ng/mL [facility] Absolute lymphocyte countOrd ered By: Eddi Calderon on 09-11-2022 Lymphocytes Auto (Unsp spec) [#/Vol] 1.88 10*3/uL 0.83-4.51 [facility] Basophil percentageOrdered B y: Eddi Calderon on 09-11-2022 Basophils/100 WBC (Bld) 1.2 % 0-1 [facility] Bilirubin [Mass/Vol] 0.20 mg/dL 0.20-1.00 [facility] Comment on above: For patients on eltr ombopag therapy, use of Dimension [place] TBIL is not recommended. Chloride [Moles/Vol] 107 mmol/L 98-107 [facility] Cholesterol [Mass/Vol] 218 mg/dL <200 [facility] Comment on above: <200 mg/dL Desirable 200-240 mg/dL Borderline >240 mg/dL High Risk Eosinophils/100 WBC (Bld) 4.1 % 0-5 [facility] Glucose [Mass/Vol] 86 mg/dL 74-106 [facility] Neutrophils (Bld) [#/Vol] 3.0 10*3/uL 2.0-7.7 [facility] Neutrophils/100 WBC (Bld) 53.2 % 47-70 [facility] Potassium [Moles/Vol] 4.2 mmol/L 3.5-5.1 [facility] Protein [Mass/Vol] 6.9 g/dL 6.4-8.2 [facility] Sodium [Moles/Vol] 140 mmol/L 136-145 [facility] Triglyceride [Mass/Vol] 81 mg/dL <199 [facility] Comment on above: The drugs N-Acetylcy steine and Metamizole may falsely depress this assay.Serum Triglycerides Reference Interval Normal <150 mg/dL Borderline high 150 - 199 mg/dL High 200 - 499 mg/dL Very High > or = 500 mg/dL WBC (Bld) [#/Vol] 5.7 10*3/uL 4.4-11.0 [facility] Blood erythrocytes count (nu mber/volume)Ordered By: Eddi Kvng on 09-11-2022 RBC (Bld) [#/Vol] 4.42 10*6/uL 4.2-5.4 [facility] Blood hemoglobin measurement (mass/volume)Ordered By: Eddi Calderon on 09-11-2022 Hemoglobin (Bld) [Mass/Vol] 12.5 g/dL 12.0-15.0 [facility] Blood lymphocytes/100 leukoc ytesOrdered By: Eddi Calderon on 09-11-2022 Lymphocytes/100 WBC (Bld) 33.2 % 19-41 [facility] Blood monocytes/100 leukocyt esOrdered By: Eddi Calderon on 09-11-2022 Monocytes/100 WBC (Bld) 7.9 % 0-10 [facility] Blood platelet mean volumeOr dered By: Eddi Calderon on 09-11-2022 Platelet mean volume (Bld) [Entitic vol] 8.4 fL 6.2-12.0 [facility] Determination of erythrocyte mean corpuscular volume (MCV)Ordered By: Eddi Calderon on 09-11-2022 MCV (RBC) [Entitic vol] 90.0 fL 81-99 [facility] Hematocrit Auto (Bld) [Volum e fraction]Ordered By: Eddi Calderon on 09-11-2022 Hematocrit (Bld) [Volume fraction] 39.8 % 37-47 [facility] Laboratory - Chemistry and C hemistry - challengeOrdered By: Eddi Calderon on 09-11-2022 ALP [Catalytic activity/Vol] 54 U/L 45-117 [facility] ALT [Catalytic activity/Vol] 21 U/L 13-56 [facility] CO2 [Moles/Vol] 31.0 mmol/L 21.0-32.0 [facility] Cobalamin (Vitamin B12) [Mass/Vol] 453 pg/mL 211-911 [facility] Globulin (S) [Mass/Vol] 3.4 g/dL 2.2-4.2 [facility] Urea nitrogen/Creatinine [Mass ratio] 19.8 mg/mg 10-20 [facility] Laboratory - Drug toxicology Ordered By: Eddi Calderon on 09-11-2022 Amphetamines Ql (U) Negative <1000 ng/mL [facility] Benzodiazepines Ql (U) Negative < 200 ng/mL [facility] Cannabinoids Screen Ql (U) Negative < 50 ng/mL [facility] Cocaine Ql (U) Negative < 300 ng/mL [facility] Opiates Ql (U) Negative < 300 ng/mL [facility] Laboratory - Hematology and Cell countsOrdered By: Eddi Calderon on 09-11-2022 Erythrocyte distribution width (RBC) [Entitic vol] 44.7 fL 35.1-43.9 [facility] Erythrocyte distribution width (RBC) [Ratio] 13.4 % 11.6-14.6 [facility] Immature granulocytes/100 WBC (Bld) 0.400 % 0.0-0.9 [facility] Comment on above: IG% - Immature Granu locytes (promyelocytes, myelocytes and metamyelocytes) > 1% indicates that a LEFT SHIFT is Present. MCH (RBC) [Entitic mass] 28.3 pg 27.0-32.0 [facility] Nucleated RBC/100 WBC (Bld) [Ratio] 0 % 0-5 [facility] MCHC Auto (RBC) [Mass/Vol]Or dered By: Eddi Calderon on 09-11-2022 MCHC (RBC) [Mass/Vol] 31.4 g/dL 32-36 [facility] No Panel InformationOrdered By: Eddi Calderon on 09-11-2022 Estimated GFR (MDRD) Amer 88 mL/min >60 [facility] Comment on above: GFR Calc Estimated GFR (MDRD) Non-Af Amer 73 mL/min >60 [facility] Comment on above: Non- GFR Calc MDMA (Ecstasy) Screen Negative < 500 ng/mL [facility] Thyroid Stimulating Hormone (TSH) 2.65 uIU/mL 0.358-3.74 [facility] Urine Barbiturates Screen Negative < 200 ng/mL [facility] Urine Drug Screen Comment [facility] Comment on above: CONFIRMATORY TESTING FOR ALL POSITIVE URINE DRUG SCREENRESULTS WILL ONLY BE SENT OUT UPON PHYSICIAN ORDER. [facility]IST[facility] Urine Drug Screen methods provide only preliminaryanalytical test results. A more specific alternate chemicalmethod must be used in order to obtain a confirmedanalytical result. Gas chromatography/mass spectrometery(GC/MS) is the preferred confirmatory method. Clinicalconsideration and professional judgement should be appliedto any drug of abuse test result, particularly whenpreliminary positive results are used. URINE TCA TESTING MUST BE ORDERED SEPARATELY. USE TESTMNEMONIC: [facility] Urine Methadone Screen Negative < 300 ng/mL [facility] Vitamin D 25-Hydroxy 40.2 ng/mL [facility] Comment on above: Vitamin D 25(OH) Sta tus Range Deficiency <20 ng/mL (50nmol/L) Insufficiency 20 - 30 ng/mL (50 - 75 nmol/L) Sufficiency 30 - 100 ng/mL (75 - 250 nmol/L) Toxicity >100 ng/mL (>250 nmol/L) Platelets bldOrdered By: Laura Calderon on 09-11-2022 Platelets (Bld) [#/Vol] 415 10*3/uL 150-450 [facility] Serum or plasma albumin ramona urement (mass/volume)Ordered By: Eddi Calderon on 09-11-2022 Albumin [Mass/Vol] 3.5 g/dL 3.2-5.0 [facility] Serum or plasma albumin/glob ulin mass ratioOrdered By: Eddi Calderon on 09-11-2022 Albumin/Globulin [Mass ratio] 1.0 {ratio} 0.9-2.4 [facility] Serum or plasma calcium ramona urement (mass/volume)Ordered By: Eddi Calderon on 09-11-2022 Calcium [Mass/Vol] 8.6 mg/dL 8.5-10.1 [facility] Serum or plasma cholesterol in HDL measurement (mass/volume)Ordered By: Eddi Calderon on 09-11-2022 Cholesterol in HDL [Mass/Vol] 95 mg/dL >40 [facility] Comment on above: The drugs N-Acetylcy steine and Metamizole may falsely depress this assay. Reference Range HDL <40 mg/dL Low HDL Cholesterol HDL >or= 60 mg/dL High HDL Cholesterol Serum or plasma cholesterol in VLDL measurement (mass/volume)Ordered By: Eddi Cadleron on 09-11-2022 Cholesterol in VLDL [Mass/Vol] 16 mg/dL 5-40 [facility] Serum or plasma creatinine m easurement (mass/volume)Ordered By: Eddi Calderon on 09-11-2022 Creatinine [Mass/Vol] 0.86 mg/dL 0.55-1.02 [facility] Comment on above: The validity of the calculated GFR & GFRAA in patients over 70 years has not been determined. Clinical correlation is essential. Serum or plasma low density lipoprotein (LDL) cholesterol measurement (mass/volume)Ordered By: Eddi Calderon on 09-11-2022 Cholesterol in LDL [Mass/Vol] 107 mg/dL 0-130 [facility] Serum or plasma urea nitroge n measurement (mass/volume)Ordered By: Eddi Calderon on 09-11-2022 Urea nitrogen [Mass/Vol] 17 mg/dL 7-18 [facility] Thin prep Papanicolaou smear with manual screeningOrdered By: Eddi Calderon on 09-11-2022 Thin prep Papanicolaou smear with manual screening 16 U/L 15-37 [facility] Thin prep Papanicolaou smear with manual screening 2 5-15 [facility] Urine phencyclidine (PCP) de tectionOrdered By: Eddi Calderon on 09-11-2022 Phencyclidine Ql (U) Negative < 25 ng/mL [facility] No Panel InformationOrdered By: Haritha Rose on 05-31-2022 Miscellaneous Test See comment [facility] Comment on above: TEST RESULT LIMITSTo xASSURE Select 13 (MW) Summary Report (Summary) FINAL TOXASSURE SELECT 13 (MW) Test Result Flag Units Drug Present Amphetamine 2472 ng/mg creat Amphetamine is available as a schedule II prescription drug. Test Result Flag Units Ref Range Creatinine 105 mg/dL >=20 Declared Medications: Medication list was not provided. For clinical consultation, please call . [facility] ORIGINAL REPORT ON FILE IN LAB CONTAINS ADDITIONAL TEST SITE INFORMATION. Laboratory - Drug toxicology on 03-09-2022 Amphetamines Ql (U) Positive <1000 ng/[facility]: [phone] Benzodiazepines Ql (U) Negative < 200 ng/mL [facility] Work Phone: [phone] Cannabinoids Screen Ql (U) Negative < 50 ng/mL [facility] Work Phone: [phone] Cocaine Ql (U) Negative < 300 ng/mL [facility] Work Phone: [phone] Opiates Ql (U) Negative < 300 ng/mL [facility] Work Phone: No Panel Informationon 03-09 MDMA (Ecstasy) Screen Negative < 500 ng/mL [facility] Work Phone: Urine Barbiturates Screen Negative < 200 ng/mL [facility] Work Phone: Urine Drug Screen Comment [facility] Work Phone: [phone] Comment on above: CONFIRMATORY TESTING FOR ALL POSITIVE URINE DRUG SCREENRESULTS WILL ONLY BE SENT OUT UPON PHYSICIAN ORDER. VISTA Urine Drug Screen methods provide only preliminaryanalytical test results. A more specific alternate chemicalmethod must be used in order to obtain a confirmedanalytical result. Gas chromatography/mass spectrometery(GC/MS) is the preferred confirmatory method. Clinicalconsideration and professional judgement should be appliedto any drug of abuse test result, particularly whenpreliminary positive results are used. URINE TCA TESTING MUST BE ORDERED SEPARATELY. USE TESTMNEMONIC: [facility] Urine Methadone Screen Negative < 300 ng/mL [facility] Work Phone: Urine phencyclidine (PCP) de tectionon 03-09-2022 Phencyclidine Ql (U) Negative < 25 ng/mL [facility] Work Phone: Absolute lymphocyte counton 08-30-2021 Lymphocytes Auto (Unsp spec) [#/Vol] 1.97 10*3/uL 0.83-4.51 [facility] Work Phone: Basophil percentageon 2021 Basophils/100 WBC (Bld) 0.9 % 0-1 [facility] Work Phone: Chloride [Moles/Vol] 105 mmol/L 98-107 [facility] Work Phone: Eosinophils/100 WBC (Bld) 2.1 % 0-5 [facility] Work Phone: Glucose [Mass/Vol] 97 mg/dL 74-106 [facility] Work Phone: Neutrophils (Bld) [#/Vol] 4.2 10*3/uL 2.0-7.7 [facility] Work Phone: Neutrophils/100 WBC (Bld) 61.2 % 47-70 [facility] Work Phone: Potassium [Moles/Vol] 4.1 mmol/L 3.5-5.1 [facility] Work Phone: [phone] Sodium [Moles/Vol] 137 mmol/L 136-145 [facility] Work Phone: [phone] WBC (Bld) [#/Vol] 6.8 10*3/uL 4.4-11.0 [facility] Work Phone: [phone] Blood erythrocytes count (nu mber/volume)on 08-30-2021 RBC (Bld) [#/Vol] 4.86 10*6/uL 4.2-5.4 [facility] Work [facility]: Blood hemoglobin measurement (mass/volume)on 08-30-2021 Hemoglobin (Bld) [Mass/Vol] 14.1 g/dL 12.0-15.0 [facility] Work Phone: [phone] Blood lymphocytes/100 leukoc yteson 08-30-2021 Lymphocytes/100 WBC (Bld) 29.0 % 19-41 [facility] Work Phone: [phone] Blood monocytes/100 leukocyt eson 08-30-2021 Monocytes/100 WBC (Bld) 6.5 % 0-10 [facility] Work Phone: [phone] Blood platelet mean volumeon 08-30-2021 Platelet mean volume (Bld) [Entitic vol] 8.5 fL 6.2-12.0 [facility] Work Phone: [phone] Determination of erythrocyte mean corpuscular volume (MCV)on 08-30-2021 MCV (RBC) [Entitic vol] 89.3 fL 81-99 [facility] Work Phone: [phone] Hematocrit Auto (Bld) [Volum e fraction]on 08-30-2021 Hematocrit (Bld) [Volume fraction] 43.4 % 37-47 [facility] Work Phone: [phone] Iron measurement (mass/mass) on 08-30-2021 Iron (Unsp spec) [Mass/Mass] 183 ug/dL 50-170 [facility] Work Phone: Laboratory - Chemistry and C hemistry - challengeon 08-30-2021 CO2 [Moles/Vol] 28.0 mmol/L 21.0-32.0 [facility] Work Phone: [phone] Cobalamin (Vitamin B12) [Mass/Vol] 390 pg/mL 211-911 [facility] Work Phone: [phone] Magnesium [Mass/Vol] 2.1 mg/dL 1.6-2.6 [facility] Work Phone: [phone] Urea nitrogen/Creatinine [Mass ratio] 13.1 mg/mg 10-20 [facility] Work Phone: [phone] Laboratory - Drug toxicology on 08-30-2021 Amphetamines Ql (U) Positive [facility] Work Phone: [phone] Benzodiazepines Ql (U) Negative [facility] Work Phone: [phone] Cannabinoids Screen Ql (U) Negative [facility] Work Phone: [phone] Cocaine Ql (U) Negative [facility] Work Phone: [phone] Opiates Ql (U) Negative [facility] Work Phone: [phone] Laboratory - Hematology and Cell countson 08-30-2021 Erythrocyte distribution width (RBC) [Entitic vol] 42.7 fL 35.1-43.9 [facility] Work Phone: [phone] Erythrocyte distribution width (RBC) [Ratio] 13.1 % 11.6-14.6 [facility] Work Phone: [phone] Immature granulocytes/100 WBC (Bld) 0.300 % 0.0-0.9 [facility] Work Phone: [phone] Comment on above: IG% - Immature Granu locytes (promyelocytes, myelocytes and metamyelocytes) > 1% indicates that a LEFT SHIFT is Present. MCH (RBC) [Entitic mass] 29.0 pg 27.0-32.0 [facility] Work Phone: Nucleated RBC/100 WBC (Bld) [Ratio] 0 % 0-5 [facility] Work Phone: [phone] MCHC Auto (RBC) [Mass/Vol]on 08-30-2021 MCHC (RBC) [Mass/Vol] 32.5 g/dL 32-36 [facility] Work Phone: No Panel Informationon 08-30 Estimated GFR (MDRD) Amer 69 mL/min >60 [facility] Work Phone: Comment on above: GFR Calc Estimated GFR (MDRD) Non-Af Amer 57 mL/min >60 [facility] Work Phone: Comment on above: Non- GFR Calc MDMA (Ecstasy) Screen Negative [facility] Work Phone: Total Iron Binding Capacity 294 ug/dL 250-450 [facility] Work Phone: [phone] Urine Barbiturates Screen Negative [facility] Work Phone: Urine Drug Screen Comment [facility] Work Phone: Comment on above: CONFIRMATORY TESTING FOR ALL POSITIVE URINE DRUG SCREENRESULTS WILL ONLY BE SENT OUT UPON PHYSICIAN ORDER. VISTA Urine Drug Screen methods provide only preliminaryanalytical test results. A more specific alternate chemicalmethod must be used in order to obtain a confirmedanalytical result. Gas chromatography/mass spectrometery(GC/MS) is the preferred confirmatory method. Clinicalconsideration and professional judgement should be appliedto any drug of abuse test result, particularly whenpreliminary positive results are used. URINE TCA TESTING MUST BE ORDERED SEPARATELY. USE TESTMNEMONIC: [facility] Urine Methadone Screen Negative [facility] Work Phone: [phone] Platelets bldon 08-30-2021 Platelets (Bld) [#/Vol] 365 10*3/uL 150-450 [facility] Work Phone: [phone] Serum or plasma calcium ramona urement (mass/volume)on 08-30-2021 Calcium [Mass/Vol] 9.3 mg/dL 8.5-10.1 [facility] Work Phone: [phone] Serum or plasma creatinine m easurement (mass/volume)on 08-30-2021 Creatinine [Mass/Vol] 1.07 mg/dL 0.55-1.02 [facility] Work Phone: Comment on above: The validity of the calculated GFR & GFRAA in patients over 70 years has not been determined. Clinical correlation is essential. Serum or plasma ferritin jeffery surement (mass/volume)on 08-30-2021 Ferritin [Mass/Vol] 57 ng/mL 8-252 [facility] Work Phone: [phone] Serum or plasma iron saturat ion measurement (mass fraction)on 08-30-2021 Iron saturation [Mass fraction] 62.2 % 15.0-55.0 [facility] Work Phone: Serum or plasma urea nitroge n measurement (mass/volume)on 08-30-2021 Urea nitrogen [Mass/Vol] 14 mg/dL 7-18 [facility] Work Phone: Thin prep Papanicolaou smear with manual screeningon 08-30-2021 Thin prep Papanicolaou smear with manual screening 4 15 [facility] Work Phone: [phone] Urine phencyclidine (PCP) de tectionon 08-30-2021 Phencyclidine Ql (U) Negative [facility] Work Phone: Cervical or vagninal specime n microscopic examination by cytology stain (reported ason 07-20-2021 Cytology report Cyto stain Doc (Cvx/Vag) Comment [facility] Work Phone: Comment on above: The Pap smear is a s creening test designed to aid in thedetection of premalignant and malignant conditions of theuterine cervix. It is not a diagnostic procedure andshould not be used as the sole means of detecting cervicalcancer. Both false-positive and false-negative reports dooccur. Detection in cervical specim en of any of human papilloma virus (HPV) 16, 18, 31, 33,on 07-20-2021 HPV 16+18+31+33+35+39+45+5 1+52+56+58+59+66+68 DNA Probe+sig amp Ql (Cvx) Negative Negative [facility] Work Phone: Comment on above: This nucleic acid am plification test detects fourteen high- risk HPV types (16,18,31,33,35,39,45,51,52,56,58,59,66,68)without differentiation.Performed at: - [facility] [id number] Director: Jolynn Raímrez MD, Phone: [phone] at: = - [facility] [id number] Director: Jolynn Ramírez MD, Phone: [phone] Laboratory - Cytologyon [employer] Manager Cyto stain Nom (Cvx/Vag) [ID] Comment [facility] Work Phone: Comment on above: Juan Galeano ytotechnologist (ASCP) Laboratory - Miscellaneous t estson 07-20-2021 Service comment (Unsp spec) [Interp] . [facility] Work Phone: No Panel Informationon 07-20 Pathology report final diagnosis Narrative Comment [facility] Work Phone: Comment on above: NEGATIVE FOR INTRAEP ITHELIAL LESION OR MALIGNANCY. Vital Signs Date Time Vital Sign Value Performing Clinician Cecyi chika 06-04-2024 09:52-0500 Body height 172.72 cm Eddi Calderon MEDICAL REIMBURSEMENT MANAGER-C Work Phone: [facility] 06-04-2024 09:52-0500 Body temperature 98.7 [degF] Eddi Calderon MEDICAL REIMBURSEMENT MANAGER-C Work Phone: [facility] 06-04-2024 09:52-0500 Diastolic blood pressure 74 mm[Hg] Eddi Calderon MEDICAL REIMBURSEMENT MANAGER-C Work Phone: [facility] 06-04-2024 09:52-0500 Heart rate 78 /min Eddi Calderon MEDICAL REIMBURSEMENT MANAGER-C Work Phone: [facility] 06-04-2024 09:52-0500 Respiratory rate 16 /min Edid Calderon MEDICAL REIMBURSEMENT MANAGER-C Work Phone: [facility] 06-04-2024 09:52-0500 SaO2% (BldA) [Mass fraction] 100 % Eddi Calderon MEDICAL REIMBURSEMENT MANAGER-C Work Phone: [phone] [place] [address] 06-04-2024 09:52-0500 Systolic blood pressure 127 mm[Hg] Eddi Calderon MEDICAL REIMBURSEMENT MANAGER-C Work Phone: [phone] [place] [address] 05-29-2024 13:12-0500 Body temperature 98 [degF] Eddi Calderon MEDICAL REIMBURSEMENT MANAGER-C Work Phone: [phone] [place] [address] 05-29-2024 13:12-0500 Diastolic blood pressure 73 mm[Hg] Eddi Calderon MEDICAL REIMBURSEMENT MANAGER-C Work Phone: [phone] [place] [address] 05-29-2024 13:12-0500 Heart rate 87 /min Eddi Calderon MEDICAL REIMBURSEMENT MANAGER-C Work Phone: [phone] [place] [address] 05-29-2024 13:12-0500 Respiratory rate 18 /min Eddi Calderon MEDICAL REIMBURSEMENT MANAGER-C Work Phone: [phone] [place] [address] 05-29-2024 13:12-0500 SaO2% (BldA) [Mass fraction] 98 % Eddi Calderon MEDICAL REIMBURSEMENT MANAGER-C Work Phone: [phone] [place] [address] 05-29-2024 13:12-0500 Systolic blood pressure 110 mm[Hg] Eddi Calderon MEDICAL REIMBURSEMENT MANAGER-C Work Phone: [phone] [place] [address] 05-23-2024 13:37-0500 Body mass index (BMI) [Ratio] 21.1 kg/m2 Eddi Calderon MEDICAL REIMBURSEMENT MANAGER-C Work Phone: [phone] [place] [address] 05-23-2024 13:37-0500 Body temperature 97.8 [degF] Eddi Calderon MEDICAL REIMBURSEMENT MANAGER-C Work Phone: [phone] [place] [address] 05-23-2024 13:37-0500 Body weight 63.04 kg Eddi Calderon MEDICAL REIMBURSEMENT MANAGER-C Work Phone: [phone] [place] [address] 05-23-2024 13:37-0500 Diastolic blood pressure 69 mm[Hg] Eddi Calderon MEDICAL REIMBURSEMENT MANAGER-C Work Phone: [phone] [place] [address] 05-23-2024 13:37-0500 Heart rate 79 /min Eddi Calderon MEDICAL REIMBURSEMENT MANAGER-C Work Phone: [phone] [place] [address] 05-23-2024 13:37-0500 Respiratory rate 17 /min Eddi Calderon MEDICAL REIMBURSEMENT MANAGER-C Work Phone: [facility] 05-23-2024 13:37-0500 SaO2% (BldA) [Mass fraction] 98 % Eddi Calderon MEDICAL REIMBURSEMENT MANAGER-C Work Phone: [facility] 05-23-2024 13:37-0500 Systolic blood pressure 111 mm[Hg] Eddi Calderon MEDICAL REIMBURSEMENT MANAGER-C Work Phone: [facility] 2023 13:32-0500 Body height 175.26 cm MEDICAL REIMBURSEMENT MANAGER-C Eddi Calderon MEDICAL REIMBURSEMENT MANAGER Work Phone: [facility] 2023 13:32-0500 Body mass index (BMI) [Ratio] 21.4 kg/m2 MEDICAL REIMBURSEMENT MANAGER-C Eddi Calderon MEDICAL REIMBURSEMENT MANAGER Work Phone: [facility] 2023 13:32-0500 Body weight 65.77 kg MEDICAL REIMBURSEMENT MANAGER-C Eddi Gonzalezder MEDICAL REIMBURSEMENT MANAGER Work Phone: [facility] 02-07-2023 09:01-0400 Diastolic blood pressure 70 mm[Hg] Dr. Kev Ortiz Work Phone: [facility] 02-07-2023 09:01-0400 Heart rate 78 /min Dr. Kev Ortiz Work Phone: [facility] 02-07-2023 09:01-0400 Respiratory rate 16 /min Dr. Kev Ortiz Work Phone: [facility] 02-07-2023 09:01-0400 SaO2% (BldA) [Mass fraction] 99 % Dr. Kev Ortiz Work Phone: [facility] 02-07-2023 09:01-0400 Systolic blood pressure 128 mm[Hg] Dr. Kev Ortiz Work Phone: [facility] 02-07-2023 06:55-0400 Body height 175.[address] Kev Ortiz Work Phone: [facility] 02-07-2023 06:55-0400 Body mass index (BMI) [Ratio] 24.3 kg/m2 Dr. Kev Ortiz Work Phone: [facility] 02-07-2023 06:55-0400 Body temperature 96.7 [degF] Dr. Kev Ortiz Work Phone: [facility] 02-07-2023 06:55-0400 Body weight 74.[address] Kev Ortiz Work Phone: [facility] 12-14-2022 12:48-0400 Body height 175.[address] Kev Ortiz Work Phone: [facility] 12-14-2022 12:48-0400 Body mass index (BMI) [Ratio] 23.3 kg/m2 Dr. Kev Ortiz Work Phone: [facility] 12-14-2022 12:48-0400 Body temperature 96.9 [degF] Dr. Kev Ortiz Work Phone: [facility] 12-14-2022 12:48-0400 Body weight 71.[address] Kev Ortiz Work Phone: [facility] 12-14-2022 12:48-0400 Diastolic blood pressure 74 mm[Hg] Dr. Kev Ortiz Work Phone: [facility] 12-14-2022 12:48-0400 Heart rate 93 /min Dr. Kev Ortiz Work Phone: [facility] 12-14-2022 12:48-0400 Respiratory rate 18 /min Dr. Kev Ortiz Work Phone: [facility] 12-14-2022 12:48-0400 SaO2% (BldA) [Mass fraction] 97 % Dr. Kev Ortiz Work Phone: [facility] 12-14-2022 12:48-0400 Systolic blood pressure 106 mm[Hg] Dr. Kev Ortiz Work Phone: [facility] 09-11-2022 08:04-0400 Body mass index (BMI) [Ratio] 22.6 kg/m2 Dr. Kev Ortiz Work Phone: [facility] 09-11-2022 08:04-0400 Body temperature 98 [degF] Dr. Kev Ortiz Work Phone: [facility] 09-11-2022 08:04-0400 Body weight 69.[address] Kev Ortiz Work Phone: [facility] 09-11-2022 08:04-0400 Diastolic blood pressure 82 mm[Hg] Dr. Kev Ortiz Work Phone: [facility] 09-11-2022 08:04-0400 Heart rate 88 /min Dr. Kev Ortiz Work Phone: [facility] 09-11-2022 08:04-0400 Respiratory rate 14 /min Dr. Kev Ortiz Work Phone: [facility] 09-11-2022 08:04-0400 SaO2% (BldA) [Mass fraction] 99 % Dr. Kev Ortiz Work Phone: [facility] 09-11-2022 08:04-0400 Systolic blood pressure 122 mm[Hg] Dr. Kev Ortiz Work Phone: [facility] 05-31-2022 08:29-0500 Body height 175.[address] Kev Ortiz Work Phone: [facility] 05-31-2022 08:29-0500 Body mass index (BMI) [Ratio] 22.6 kg/m2 Dr. Kev Ortiz Work Phone: [facility] 05-31-2022 08:29-0500 Body temperature 98 [degF] Dr. Kev Ortiz Work Phone: [facility] 05-31-2022 08:29-0500 Body weight 69.[address] Kev Ortiz Work Phone: [facility] 05-31-2022 08:29-0500 Diastolic blood pressure 78 mm[Hg] Dr. Kve Ortiz Work Phone: [facility] 05-31-2022 08:29-0500 Heart rate 69 /min Dr. Kev Ortiz Work Phone: [facility] 05-31-2022 08:29-0500 Respiratory rate 14 /min Dr. Kev Ortiz Work Phone: [facility] 05-31-2022 08:29-0500 SaO2% (BldA) [Mass fraction] 99 % Dr. Kev Ortiz Work Phone: [facility] 05-31-2022 08:29-0500 Systolic blood pressure 124 mm[Hg] Dr. Kev Ortiz Work Phone: [facility] 03-09-2022 08:09-0400 Body height 175.[address] Kev Ortiz Work Phone: [facility] Work Phone: 03-09-2022 08:09-0400 Body mass index (BMI) [Ratio] 22.6 kg/m2 Dr. Kev Ortiz Work Phone: [facility] Work Phone: 03-09-2022 08:09-0400 Body temperature 98.1 [degF] Dr. Kev Ortiz Work Phone: [facility] Work Phone: 03-09-2022 08:09-0400 Body weight 69.[address] Kev Ortiz Work Phone: [facility] Work Phone: 03-09-2022 08:09-0400 Diastolic blood pressure 78 mm[Hg] Dr. Kev Ortiz Work Phone: [facility] Work Phone: 03-09-2022 08:09-0400 Heart rate 87 /min Dr. Kev Ortiz Work Phone: [facility] Work Phone: 03-09-2022 08:09-0400 Respiratory rate 16 /min Dr. Kev Ortiz Work Phone: [facility] Work Phone: 03-09-2022 08:09-0400 SaO2% (BldA) [Mass fraction] 99 % Dr. Kev Ortiz Work Phone: [facility] Work Phone: 03-09-2022 08:09-0400 Systolic blood pressure 110 mm[Hg] Dr. Kev Ortiz Work Phone: [facility] Work Phone: 12-07-2021 08:08-0400 Body mass index (BMI) [Ratio] 24 kg/m2 Dr. Kev Ortiz Work Phone: [facility] Work Phone: 12-07-2021 08:08-0400 Body temperature 97.5 [degF] Dr. Kev Ortiz Work Phone: [facility] Work Phone: 12-07-2021 08:08-0400 Body weight 73.[address] Kev Ortiz Work Phone: [facility] Work Phone: 12-07-2021 08:08-0400 Diastolic blood pressure 80 mm[Hg] Dr. Kev Ortiz Work Phone: [facility] Work Phone: 12-07-2021 08:08-0400 Heart rate 80 /min Dr. Kev Ortiz Work Phone: [facility] Work Phone: 12-07-2021 08:08-0400 Respiratory rate 18 /min Dr. Kev Ortiz Work Phone: [facility] Work Phone: 12-07-2021 08:08-0400 SaO2% (BldA) [Mass fraction] 99 % Dr. Kev Ortiz Work Phone: [facility] Work Phone: 12-07-2021 08:08-0400 Systolic blood pressure 110 mm[Hg] Dr. Kev Ortiz Work Phone: [facility] Work Phone: 08-30-2021 08:09-0400 Body height 175.[address] Kev Ortiz Work Phone: [facility] Work Phone: 08-30-2021 08:09-0400 Body mass index (BMI) [Ratio] 22.8 kg/m2 Dr. Kev Ortiz Work Phone: [facility] Work Phone: 08-30-2021 08:09-0400 Body temperature 97 [degF] Dr. Kev Ortiz Work Phone: [facility] Work Phone: 08-30-2021 08:09-0400 Body weight 70.[address] Kev Ortiz Work Phone: [facility] Work Phone: 08-30-2021 08:09-0400 Diastolic blood pressure 80 mm[Hg] Dr. Kev Ortiz Work Phone: [facility] Work Phone: 08-30-2021 08:09-0400 Heart rate 67 /min Dr. Kev Ortiz Work Phone: [facility] Work Phone: 08-30-2021 08:09-0400 Respiratory rate 16 /min Dr. Kev Ortiz Work Phone: [facility] Work Phone: 08-30-2021 08:09-0400 SaO2% (BldA) [Mass fraction] 93 % Dr. Kev Ortiz Work Phone: [facility] Work Phone: 08-30-2021 08:09-0400 Systolic blood pressure 132 mm[Hg] Dr. Kev Ortiz Work Phone: [facility] Work Phone: 07-20-2021 09:17-0500 Body mass index (BMI) [Ratio] 22.6 kg/m2 Dr. Kev Ortiz Work Phone: [facility] Work Phone: 07-20-2021 09:17-0500 Body weight 69.[address] Kev Ortiz Work Phone: [facility] Work Phone: 07-20-2021 09:17-0500 Diastolic blood pressure 84 mm[Hg] Dr. Kev Ortiz Work Phone: [facility] Work Phone: 07-20-2021 09:17-0500 Systolic blood pressure 138 mm[Hg] Dr. Kev Ortiz Work Phone: [facility] Work Phone: 06-01-2021 07:10-0500 Body mass index (BMI) [Ratio] 22.8 kg/m2 Dr. Kev Ortiz Work Phone: [facility] Work Phone: 06-01-2021 07:10-0500 Body temperature 96.7 [degF] Dr. Kev Ortiz Work Phone: [facility] Work Phone: 06-01-2021 07:10-0500 Body weight 70.[address] Kev Ortiz Work Phone: [facility] Work Phone: 06-01-2021 07:10-0500 Diastolic blood pressure 82 mm[Hg] Dr. Kev Ortiz Work Phone: [facility] Work Phone: 06-01-2021 07:10-0500 Heart rate 85 /min Dr. Kev Ortiz Work Phone: [facility] Work Phone: 06-01-2021 07:10-0500 Respiratory rate 14 /min Dr. Kev Ortiz Work Phone: [facility] Work Phone: 06-01-2021 07:10-0500 Systolic blood pressure 128 mm[Hg] Dr. Kev Ortiz Work Phone: [facility] Work Phone: Encounters Encounter Date Encounter Type Care Provider Facility Start: 11-19-2024 ambulatory Eddi Calderon Facility:[facility] Start: 11-12-2024 End: 11-12-2024 ambulatory Eddi Calderon MEDICAL REIMBURSEMENT MANAGER-C Work Phone: [facility] Work Phone: Start: 11-12-2024 End: 11-12-2024 Patient encounter procedure Eddi Calderon MEDICAL REIMBURSEMENT MANAGER-C -Laboratory Specimen Work Phone: Start: 11-12-2024 End: 11-12-2024 ambulatory Eddi Calderon Facility:[facility] Start: 06-04-2024 End: 06-04-2024 Patient encounter procedure Vicenta Littlejohn MEDICAL REIMBURSEMENT MANAGER-C -[facility] Work Phone: Start: 06-04-2024 End: 06-04-2024 ambulatory Vicenta Littlejohn NP Facility:[facility] [place] Start: 05-30-2024 End: 05-30-[address] Alverto Bailey MD -Occupational Thera py Work Phone: Start: 05-30-2024 End: 05-30-2024 ambulatory Eddi Calderon MEDICAL REIMBURSEMENT MANAGER-C Work Phone: [facility] Work Phone: Start: 05-29-2024 End: 05-29-[address] Alverto Bailey MD -[facility] Work Phone: Start: 05-29-2024 End: 05-29-2024 ambulatory Alverto Bailey Facility:[facility] Start: 05-23-2024 End: 05-23-[address] Alverto Bailey MD -[facility] Work Phone: Start: 05-23-2024 End: 05-23-2024 ambulatory Alverto Bialey Facility:[facility] Start: 02-28-2024 End: 02-28-2024 ambulatory Eddi Gonzalezder Facility:[facility] Start: 08-06-2023 End: 08-06-2023 ambulatory MEDICAL REIMBURSEMENT MANAGER-C Eddi Calderon MEDICAL REIMBURSEMENT MANAGER Work Phone: [facility] Work Phone: Start: 08-06-2023 End: 08-06-2023 Patient encounter procedure MEDICAL REIMBURSEMENT MANAGER-C Eddi Calderon MEDICAL REIMBURSEMENT MANAGER [facility] Start: 2023 Non-patient / Non-visit MEDICAL REIMBURSEMENT MANAGER-C Bharat Calderon MEDICAL REIMBURSEMENT MANAGER Work Phone: [facility] Work Phone: Start: 03-01-2023 Non-patient / Non-visit Dr. Mcneil Work Phone: [facility] Start: 03-01-2023 End: 03-01-[address] Kev Ortiz Work Phone: [facility] Work Phone: Start: 03-01-2023 End: 03-01-[address] [facility] Start: 02-07-2023 End: 02-07-2023 Emergency department patient visit Dr. Kev Ortiz Work Phone: [facility]-Emergency Department Work Phone: Start: 12-14-2022 End: 12-14-[address] Kev Ortiz Work Phone: [facility] Work Phone: Start: 12-14-2022 End: 12-14-[address] Kev Ortiz Work Phone: [facility]-Laboratory, Specimen Work Phone: Start: 12-14-2022 End: 12-14-[address] Kev Ortiz Work Phone: [facility] Work Phone: Start: 09-11-2022 End: 09-11-[address] Kev Ortiz Work Phone: [facility] Work Phone: Start: 08-11-2022 End: 08-11-[address] Kev Ortiz Work Phone: [facility] Work Phone: Start: 08-11-2022 End: 08-11-[address] Kev Ortiz Work Phone: [facility]-Outpatient Breast Imaging Start: 05-31-2022 End: 05-31-[address] Kev Ortiz Work Phone: [facility] Work Phone: Start: 05-31-2022 End: 05-31-[address] Kev Ortiz Work Phone: [facility] Start: 03-09-2022 End: 03-09-[address] Kev Ortiz Work Phone: [facility] Work Phone: Start: 03-09-2022 End: 03-09-[address] Kev Ortiz Work Phone: [facility] Start: 12-07-2021 End: 12-07-[address] Kev Ortiz Work Phone: [facility] Start: 09-29-2021 End: 09-29-[address] Kev Ortiz Work Phone: [facility]-Outpatient Pavilion Ultrasound Start: 08-30-2021 End: 08-30-[address] Kev Ortiz Work Phone: [facility]-Laboratory, [facility] Start: 08-04-2021 End: 08-04-[address] Kev Ortiz Work Phone: [facility]-Ultrasound, [facility] Start: 07-20-2021 End: 07-20-[address] Kev Ortiz Work Phone: [facility]-Laboratory Start: 07-20-2021 End: 07-20-[address] Kev Ortiz Work Phone: [facility] Start: 06-01-2021 End: 06-01-[address] Kev Ortiz Work Phone: [facility] Procedures Date Procedure Procedure Detail Performing Clinician Start: 11-12-2024 Methadone measuremen t, urine Eddi Calderon MEDICAL REIMBURSEMENT MANAGER-C Work Phone: Start: 02-07-2023 Plain chest X-ray Dr. Sean Ortiz Work Phone: Start: 08-11-2022 Screening mammography Sean Ortiz Work Phone: Start: 09-29-[address] Sean Ortiz Work Phone: Start: 09-29-[address] Kev Ortiz Work Phone: Start: 08-04-2021 Screening mammography Sean Ortiz Work Phone: Start: 08-04-[address] Kev Ortiz Work Phone: Plan of Treatment Date Care Activity Detail Author Start: 05-23-2024 Patient referral [facility] Work Phone: Start: 02-07-2023 [facility] Start: 05-31-2022 Procedure [facility] Work Phone: Start: 06-01-2021 Patient referral [facility] Work Phone: Colonoscopy [facility] Patient Education ED Chest Pain, Uncertain Cause [facility] Work Phone: Patient referral [facility] Work Phone: Procedure [facility] Work Phone: [facility] Immunizations Immunization Date Immunization Notes Care Provider Fa funmilayo 02-01-2018 tetanus toxoid, redu cat diphtheria toxoid, and acellular pertussis vaccine, adsorbed Dr. Kev Ortiz Work Phone: [facility] 02-01-2018 diphtheria, tetanus toxoids and acellular pertussis vaccine, unspecified formulation Dr. Kve Ortiz Work Phone: [facility] Work Phone: Payers Date Payer Category Payer Self-pay [id number] 2023 Private Health Insurance [facility] [id number] 1997 Unknown [id number] Private Health Insurance [id number] Unknown [id number] Unknown [id number] [id number] Unknown [id number] [id number] Unknown [id number] [id number] Unknown [id number] [id number] [id number] Unknown [id number] [id number] [id number] Unknown [id number] [id number] Unknown [id number] [id number] Social History Date Type Detail Facility Start: 08-30-2021 End: 05-30-2023 Tobacco smoking status NCIS Unknown if ever smoked [facility] Start: 1965 Sex Assigned At Female [facility] Start: 03-05-2018 Cigarettes [facility] Start: 02-28-2024 [facility] Start: 08-28-2024 Sex Female (finding) [facility] Mental Status Date Assessment Result Facility 02-07-2023 Cognitive function Level Of Cons ciousness Awake;Alert;Appropriate [facility] Work Phone: Clinical Notes 07-20-2021 to 05-23-2024 Note Date & Type Note Facility 05-23-2024 Evaluation note Diagnosis Onset Date Resolution Dupuytren contracture of both hands acute May 23 1:28pm Dupuytren contracture of both hands acute May 29, 2 024 1:04pm Dupuytren contracture of both hands acute June 04, 2 024 9:41am [facility] Work Phone: [phone]) 361-808502-02-2022 NotePap Smear Specimen AdequacyFebruary 2021 1:18pmCommentSatisfactory for evaluation. Endocervical and/or squamous metaplasticcells (endocervical component)are present.[employer] INTERFACED A#[id number] Hospitals Beachwood Medical Center Work Phone: Comment on above:Satisfactory for evaluation. Endocervical and/or squamous metaplasticcells (endocervical component)are present.07-20-2021 NotePap Smear Specimen AdequacyFebruary 2021 1:18pm CommentSatisfactory for evaluation. Endocervical and/or squamous metaplasticcells (endocervical component)are present.[employer] INTERFACED A#[id number] Hospitals [facility] Work Phone: Comment on above:Satisfactory for evaluation. Endocervical and/or squamous metaplasticcells (endocervical component)are present.Evaluation note* Diagnosis Onset Date Resolution Status Right foot pain acute Binge-eating disorder, moderate chronic Menorrhagia with regular cycle acute Binge-eating disorder, moderate chronic [facility] Work Phone: Evaluation note* Diagnosis Onset Date Resolution Status Menorrhagia with regular cycle acute Binge-eating disorder, moderate chronic [facility] Work Phone: Evaluation note* Diagnosis Onset Date Resolution Status Binge-eating disorder, moderate chronic Family history of lung cancer noneactive Binge-eating disorder, moderate chronic [facility] Work Phone: Evaluation note* Diagnosis Onset Date Resolution Status Binge-eating disorder, moderate chronic Hot flashes acute Binge-eating disorder, moderate chronic Perimenopausal noneactive [facility] Work Phone: Evaluation note* Diagnosis Onset Date Resolution Status Hot flashes acute Binge-eating disorder, moderate chronic Perimenopausal noneactive [facility] Work Phone: Evaluation note* Diagnosis Onset Date Resolution Status Vitamin deficiency acute Binge-eating disorder, moderate chronic Climacteric acute Binge-eating disorder, moderate chronic [facility] Work Phone: Evaluation note* Diagnosis Onset Date Resolution Status Climacteric acute Binge-eating disorder, moderate chronic [facility] Work Phone: Evaluation noteNo assessment information available [facility] Work Phone: [facility] Work Phone: Reason for referral (narrative)No reason for referral information availableUniversity Hospitals [facility] Work Phone: Chief Complaint and Reason for Visit Chief Complaint 3 M FU DYSMENORRHEA EORDER MENORRHAGIA SCREENING 3 M FU Reason for Visit Right foot pain Binge-eating disorder, moderate Menorrhagia with regular cycle Binge-eating disorder, moderate Chief Complaint DYSMENORRHEA EORDER MENORRHAGIA SCREENING 3 M FU F/U CYST Reason for Visit Menorrhagia with reg ular cycle Binge-eating disorder, moderate Chief Complaint 3 M FU 3 M FU Reason for Visit Binge-eating disorde r, moderate Family history of lung cancer Binge-eating disorder, moderate Chief Complaint 3 M FU MED REFILLS Reason for Visit Binge-eating disorde r, moderate Hot flashes Binge-eating disorder, moderate Perimenopausal Chief Complaint MED REFILLS SCREENING Reason for Visit Hot flashes Binge-eating disorder, moderate Perimenopausal Chief Complaint med compliance MED COMPLIANCE Reason for Visit Vitamin deficiency Binge-eating disorder, moderate Climacteric Binge-eating disorder, moderate Chief Complaint MED COMPLIANCE CHEST PAIN Reason for Visit Climacteric Binge-eating disorder, moderate Chief Complaint MED COMPLIANCE CHEST PAIN Chest pain, unspecified Chest pain, unspecified Reason for Visit Climacteric Binge-eating disorder, moderate Chief Complaint Amb Documentation Chief Complaint Admit Date Xiaflex Injection May 23, 2024 1 :28pm Xiaflex Manipulation May 29, 2024 1:04pm DUPUYTREN CONTRACTURE/MANIPULATION. RX H ERE May 30, 2024 11:12am 1 W FU June 04, 2024 9:41am Reason for Visit Admit Date Dupuytren contracture of both hands Dece mber 2023 1:28pm Dupuytren contracture of both hands Dece mber 2023 1:04pm Dupuytren contracture of both hands Dece mber 2023 9:41am Family History No Family History Records Found Relationship Condition Age at Onset Recorded Date/T tamar mother Hypertension Unknown Presence of cardiac pacemaker Unknown Relationship Condition Age at Onset Recorded Date/T tamar Not Specified Chronic lymphocytic leukemia Unknown mother Hypertension Unknown Presence of cardiac pacemaker Unknown Malignant neoplasm of lung Unknown Advance Directives No Advanced Directives Records Found Advance Directive Response Recorded Date/ Time Living Will Yes March 05, 2018 11:16am Power of Creasing And Cutting Press Feeder Yes February 11:16am Advance Directive Response Recorded Date/ Time Living Will Yes March 05, 2018 10:16am Power of Creasing And Cutting Press Feeder Yes February 10:16am Advance Directive Response Recorded Date/ Time Name of Medical Power of Creasing And Cutting Press Feeder ZULEMA DIAS, DAUGHTER February 07, 2023 6:55am Living Will Yes February 07 6:55am Power of Creasing And Cutting Press Feeder Yes February 07 6:55am Advance Directive Response Recorded Date/ Time Living Will Yes May 30 023 2:31pm Power of Creasing And Cutting Press Feeder Yes May 30, 2023 2:31pm Summary Purpose Additional Source Comments Goals (unrecognized section and content) Goals may be documented in a n alternate sectionGoals may be documented in an alternate sectionGoals may be documented in an alternate sectionGoals may be documented in an alternate sectionGoals may be documented in an alternate sectionGoals may be documented in an alternate sectionGoals may be documented in an alternate sectionGoals may be documented in an alternate sectionGoals may be documented in an alternate sectionGoals may be documented in an alternate sectionGoals may be documented in an alternate section Care Teams (unrecognized sec tion and content) Team Status: Active Member Role Status Dates Dr. Kev Ortiz , DO Family Provider Active Dr. Kev Ortiz , DO Primary Care Provider Active Team Status: Inactive Member Role Status Dates Dr. Kev Ortiz , DO Primary Care Provider, Referr ing Provider Active MICHAEL Grayson Attending Provider Active Team Status: Inactive Member Role Status Dates Dr. Kev Ortiz , DO Primary Care Provider Active Danyelle Wagner MEDICAL REIMBURSEMENT MANAGER, MEDICAL REIMBURSEMENT MANAGER-C Attending Provider Active Team Status: Inactive Member Role Status Dates Dr. Kev Ortiz , DO Primary Care Provider Active MICHAEL Grayson Attending Provider, Referring Pro vider Active Team Status: Inactive Member Role Status Dates Dr. Kev Ortiz , DO Primary Care Provider, Referr ing Provider Active Eddi Calderon MEDICAL REIMBURSEMENT MANAGER, MEDICAL REIMBURSEMENT MANAGER-C Attending Provider Active Team Status: Inactive Member Role Status Dates Dr. Kev Ortiz DO Primary Care Provider Active Eddi Calderon MEDICAL REIMBURSEMENT MANAGER, MEDICAL REIMBURSEMENT MANAGER-C Attending Provider, Referring Prov ider Active Team Status: Active Member Role Status Dates Dr. Kev Ortiz DO Family Provider Active Eddi Calderon MEDICAL REIMBURSEMENT MANAGER, MEDICAL REIMBURSEMENT MANAGER-C Primary Care Provider Active Team Status: Inactive Member Role Status Dates Eddi Calderon NP, MEDICAL REIMBURSEMENT MANAGER-C Primary Care Provider Active Dr. Darien Egan , DO Emergency Provider Active Team Status: Active Member Role Status Dates Eddi Calderon MEDICAL REIMBURSEMENT MANAGER, MEDICAL REIMBURSEMENT MANAGER-C Primary Care Provide r, Referring Provider, Other Provider Active Dr. Neftaly Knox MD Attending Provider Active Team Status: Inactive Member Role Status Dates Eddi Calderon NP, MEDICAL REIMBURSEMENT MANAGER-C Primary Care Provider Active Dr. Darien Egan , Attending Provider, Emergency P rovider Active Team Status: Inactive Member Role Status Dates Eddi Calderon MEDICAL REIMBURSEMENT MANAGER, MEDICAL REIMBURSEMENT MANAGER-C Primary Care Provide r, Attending Provider, Referring Provider Active Team Status: Active Member Role Status Dates Eddi Calderon MEDICAL REIMBURSEMENT MANAGER, MEDICAL REIMBURSEMENT MANAGER-C Primary Care Provider Active Shelbie Colin Attending Provider Active Team Status: Inactive Member Role Status Dates Eddi Calderon MEDICAL REIMBURSEMENT MANAGER, MEDICAL REIMBURSEMENT MANAGER-C Primary Care Provider Active VON CordobaM Attending Provider, Referri ng Provider Active Team Status: Active Member Role Status Dates Dr. Kev Ortiz DO Family Provider Active Eddi Calderon VSC, MEDICAL REIMBURSEMENT MANAGER-C Primary Care Provider Active Team Status: Inactive Member Role Status Dates Eddi Calderon VSC, MEDICAL REIMBURSEMENT MANAGER-C Primary Care Provider Active Start: May 23, 2024 End: May 23, 2024 Dr. Alverto Bailey MD Attending Provider Active Start: May 23, 2024 End: May 23, 2024 Dr. Alverto Bailey MD Referring Provider Active Start: May 23, 2024 End: May 23, 2024 Team Status: Inactive Member Role Status Dates Eddi Calderon VSC, MEDICAL REIMBURSEMENT MANAGER-C Primary Care Provider Active Start: May 29, 2024 End: May 29, 2024 Dr. Alverto Bailey MD Attending Provider Active Start: May 29, 2024 End: May 29, 2024 Dr. Alverto Bailey MD Referring Provider Active Start: May 29, 2024 End: May 29, 2024 Team Status: Inactive Member Role Status Dates Eddi Calderon VSC, MEDICAL REIMBURSEMENT MANAGER-C Primary Care Provider Active Start: May 30, 2024 End: May 30, 2024 Dr. Alverto Bailey MD Attending Provider Active Start: May 30, 2024 End: May 30, 2024 Dr. Alverto Bailey MD Referring Provider Active Start: May 30, 2024 End: May 30, 2024 Team Status: Inactive Member Role Status Dates Eddi Calderon VSC, MEDICAL REIMBURSEMENT MANAGER-C Primary Care Provider Active Start: June 04, 2024 End: June 04, 2024 Eddi Calderon VSC, MEDICAL REIMBURSEMENT MANAGER-C Referring Provider Active S tart: June 04, 2024 End: June 04, 2024 Vicenta Littlejohn MEDICAL REIMBURSEMENT MANAGER, MEDICAL REIMBURSEMENT MANAGER-C Attending Provider Active Start: June 04, 2024 End: June 04, 2024 Team Status: Active Member Role Status Dates Eddi Calderon VSC, MEDICAL REIMBURSEMENT MANAGER-C Primary Care Provider Active Team Status: Inactive Member Role Status Dates Eddi Gonzalezder VSC, MEDICAL REIMBURSEMENT MANAGER-C Primary Care Provider Active Start: November 12, 2024 End: November 12, 2024 Eddi Calderon VSC, MEDICAL REIMBURSEMENT MANAGER-C Attending Provider Active S tart: November 12, 2024 End: November 12, 2024 INFORMATION SOURCE (unrecogn ized section and content) DATE CREATED AUTHOR 07/13/2023 [facility] DATE CREATED AUTHOR AUTHOR'Maame LAYNE 11/18/2024 [facility] FOR RECORDS PERTAINING TO PATIENTS WHO ARE [...] BE BASED ON THE PRIMARY CLINICAL RECORDS. [employer] provides no warranty or guarantee of the accuracy or completeness of information in this document.
== END | disposition home or self-care (01) ==
LOC: OPBI 12:24
PROVIDERS: PCP Nurse Practitioner Family; Referring Provider Nurse Practitioner Family; Visit Provider Nurse Practitioner Family
DX: Z12.31 Encounter for screening mammogram for malignant neoplasm of breast (principal)
CPT/HCPCS: 77063; 77067

== ENCOUNTER 2025-01-23 08:43 | Day surgery (SDC) | payer OTHER, SELFPAY ==
--- NOTE | 2025-01-20 16:55 | PAT.ANE_ITS ---
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 When Was Last Pacemaker Check QUESTION #4 FULL TEXT: You/Your Family Experience fever (hyperthermia) with Anesthesia Last Oral Intake Last Oral intake: Last Oral Intake NPO since Meds taken in AM with sips of water? Meds patient instructed to take am of surgery PONV PONV - ultra sound technician: PONV - ultra sound technician Female Yes 01/20/25 13:53 HX of Motion Sickness No 01/20/25 13:53 HX of N/V After Surgery No 01/20/25 13:53 Non-Smoker Yes 01/20/25 13:53 Duration of Surgery greater No 01/20/25 13:53 than 60 minutes Number of Risk Factors 2 01/20/25 13:53 PONV Score Moderate Risk 01/20/25 13:53 Height & Weight Height & Weight: Anesthesia: Height & Weight Height 5 ft 8 in 06/04/24 09:52 Respiratory Assessment Respiratory Assessment - ultra sound technician: Respiratory Tract Infection Hx - ultra sound technician Hx Respiratory Tract Infection No 01/20/25 13:53 STOP Sleep Apnea STOP Sleep Apnea - ultra sound technician: STOP Sleep Apnea - ultra sound technician Hx Hypertension No 01/20/25 13:53 Hx Sleep Apnea No 01/20/25 13:53 CPAP BIPAP Do you snore loudly (louder No 01/20/25 13:53 than talking or can be heard Do you often feel tired/ No 01/20/25 13:53 fatigued/ sleepy during daytime? Has anyone observed you stop No 01/20/25 13:53 breathing during sleep? STOP Results Negative 01/20/25 13:53 QUESTION #5 FULL TEXT : Do you snore loudly (louder than talking or can be heard through closed doors)? 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 Specify any problems Hx of Preganancy in last 3 No 01/20/25 13:53 Months Nurse Filling Out Transfusion VCHRISTIN 01/20/25 13:53 & Questions: Date: 01/20/25 01/20/25 13:53 Time: 13:54 01/20/25 13:53 Patient unable to answer at this time (ie. confused, unrespo /Reproduction History /Reproductive History - ultra sound technician: /Reproductive Hx- ultra sound technician Hx Now No 01/20/25 13:53 Gestational Age (in weeks): EDC: Hx Hx Para Hx Section SAB No 01/20/25 13:53 PFSH Medical History (Updated 01/20/25 @ 13:52 by Rochelle Ortiz) Post-menopausal Wears glasses Wears contact lenses Cancer History of back problems Alcohol use Restless legs Former smoker History of stress test Vitamin deficiency Right foot pain Hot flashes Dysmenorrhea Screening for colon cancer Home Medications ?Medication ?Instructions ?Recorded ?Last Taken ?Type lisdexamfetamine 50 mg capsule 50 mg PO QDAY 02/28/24 Unknown History vit no.95-ferrous 1 tab PO DAILY 01/20/25 Unk nown History fumarate 28 mg-folic acid 800 mcg tablet () Allergy/AdvReac Type Severity Reaction Status Date / Time No Known Allergies Allergy Verified 01/20/25 13:44 Family History Mother Hypertension Pacemaker Lung cancer Other CLL (chronic lymphocytic leukemia) Surgical History (Updated 01/20/25 @ 13:52 by Rochelle Ortiz) History of wisdom tooth extraction History of appendectomy Hx of colonoscopy with polypectomy Hx of lumbosacral spine surgery Social History household members: spouse and children current occupational status: employed current occupation: [employer] Smoking Status: Former smoker how long ago did patient quit smoking: quit 6 years ago alcohol intake: current alcohol intake frequency: a few times a month substance use type: does not use what type of physical activity do you participate in: walking frequency: 5-6 times per week seatbelt use: always do you feel safe at home: Yes additional social history: - Mandeep denies edibles, denies vaping,denies marijuana use, denies aspirin use, uses ibuprofen as needed Audit: Pertinent Findings Pertinent Findings EKG Perinent findings: EKG 2308 2022. Normal sinus rhythm Stress test pertinent findings: Stress test 03/01/2023. Stress test with no EKG criteria for ischemia at a high workload. Recommendation Anesthesia Recommendation Anesthesia recommendation: OPTIMIZED for anesthesia
[2025-01-23] VITALS (7 sets, daily range): BP systolic 103–122; BP diastolic 64–93; PULSE 69–75; RESP 16; TEMP 36.1–36.6; O2SAT 98–100; BMI 20.2
[2025-01-23] MEDS: Lactated Ringers 1,000 ML 15 ML IV (09:03)
--- NOTE | 2025-01-23 09:13 | H&P.OPEN ---
HPI - General HPI Narrative KEVIN DE LEON, is a 59 F who presents for screening colonoscopy. Her last colonoscopy was 10 years ago and was normal. She denies any abdominal pain or blood in the stool. No family history of colon cancer. [facility] Medical History (Updated 01/20/25 @ 13:52 by Rochelle Ortiz) Post-menopausal Wears glasses Wears contact lenses Cancer History of back problems Alcohol use Restless legs Former smoker History of stress test Vitamin deficiency Right foot pain Hot flashes Dysmenorrhea Screening for colon cancer Home Medications ?Medication ?Instructions ?Recorded ?Last Taken ?Type lisdexamfetamine 50 mg capsule 50 mg PO QDAY 02/28/24 Unknown History vit no.95-ferrous 1 tab PO DAILY 01/20/25 Unknown History fumarate 28 mg-folic acid 800 mcg tablet () Allergy/AdvReac Type Severity Reaction Status Date / Time No Known Allergies Allergy Verified 01/23/25 08:55 Family History Mother Hypertension Pacemaker Lung cancer Other CLL (chronic lymphocytic leukemia) Surgical History (Updated 01/20/25 @ 13:52 by Rochelle Ortiz) History of wisdom tooth extraction History of appendectomy Hx of colonoscopy with polypectomy Hx of lumbosacral spine surgery Social History household members: spouse and children current occupational status: employed current occupation: [employer] Smoking Status: Former smoker how long ago did patient quit smoking: quit 6 years ago alcohol intake: current alcohol intake frequency: a few times a month substance use type: does not use what type of physical activity do you participate in: walking frequency: 5-6 times per week seatbelt use: always do you feel safe at home: Yes additional social history: - Mandeep denies edibles, denies vaping,denies marijuana use, denies aspirin use, uses ibuprofen as needed Past Medical/Surgical History Planned Operation Planned Operative Procedure(s): COLONOSCOPY S.O.S: No Previous Hospitalizations/Surgeries HX Hospitalizations: No HX of Surgeries: BACK SURGERY APPENDECTOMY Any Problems With Anesthesia: No You/Your Family Experience Fever (Hyperthermia) With Anes: No Cholinesterase deficiency: No Cardiovascular Hx Chest Pain within Last 2 months: No Hx of Irregular Heartbeat and/or Afib: No Hx Heart Attack: No Hx Congestive Heart Failure: No Hx Rheumatic Fever: No Hx Hypertension: No Hx Internal Defibrillator: No Hx Pacemaker: No Hx Cardiac Catheterization: No Hx Cardiac Surgery/Stents/Etc.: No Hx Stress Test: No Hx Pain in Legs when Walking/Leg Cramps: No Respiratory Chronic Cough: No HX of Shortness of Breath: No Hoarseness: No Hx Chronic Obstructive Pulmonary Disease (COPD): No Hx Asthma: No Hx Emphysema: No Hx Sleep Apnea: No Hx Respiratory Tract Infection/Cold (presently): No Do You Snore Loudly (louder than talking or can be heard): No Do You Often Feel Tired/ Fatigued/ Sleepy Dring Daytime?: No Has Anyone Observed You Stop Breathing During Sleep?: No Result (for STOP score): Negative Hx Smoking: Yes (RARE/ SOCIAL) Smoking Status: Former smoker Gastrointestinal Hx Gastrointestinal Disorders: No Hx Gastrointestinal Bleed: No Hx Ulcer: No Hx Hiatal Hernia: No Difficulty Chewing/Swallowing: No Special diet followed at home: No Hx Unplanned Weight Loss of 20#: No HX Unplanned Weight Gain of 20#: No Neurological Hx Seizures: No HX Syncope/Blackout Spells/Unconsciousness: No Hx Transient Ischemic Attacks (TIA): No Hx Multiple Sclerosis: No Hx Parkinson's Disease: No Hx Head/Neck Injury: No Hx Headaches: No Hx Back Injury/Pain: Yes (HX BACK SURGERY) Recent Onset of Speech Difficulty: No Restless Legs: Yes (SOMETIMES) Does patient have nerve stimulator: No Blood Disorder Hx Leukemia: No Bleeding Tendencies: No Hx Deep Vein Thrombosis: No Hx High Cholesterol: No Blood Transmitted Disease: No Hx Hepatitis: No Hx Cirrhosis: No Hx Anemia: No Hx Blood Disorders: No Reproduction : No Is Patient Lactating: No Hx Hysterectomy: No Hx Tubal Ligation: No Are You Post Menopause: No Genitourinary Hx Renal Disease: No Musculoskeletal Hx Arthritis: No Hx Rheumatoid Arthritis: No Hx Gout: No Recent Onset of an Orthopedic Problem: No Endocrine Hx Diabetes: No Thyroid Disease: No Hx Steroid Therapy: No Psycho/Social Hx Substance Use: No Hx Alcohol Use: Yes (WEEKENDS/ 12 PACK) Hx Anxiety: No Hx Depression: No Mental Illness: No Hx Dementia: No Miscellaneous Hx Cancer: No Recent Exposure to Contagious Disease: No Hx of C-Diff: No Any Loose Teeth: No (CROWN) Allergies No Known Allergies Allergy (Verified 01/23/25 08:55) Maternal: Family History Mother Hypertension Pacemaker Lung cancer Other CLL (chronic lymphocytic leukemia) No pertinent history Discharge Is Pt Admitted From a Assisted, or a Usp: No After D/C, Where Do you Plan to Go: Return Home Vital Signs Vital Signs Vital Signs: 01/23/25 08:53 01/23/25 08:53 Temperature 98 F Temperature Source Temporal Pulse Rate 69 Respiratory Rate 16 Respiratory Pattern Normal Blood Pressure 122/69 H Blood Pressure Mean 86 Blood Pressure Source Monitor Blood Pressure Position Sitting Blood Pressure Location Right Arm Pulse Ox 100 Oxygen Delivery Method Room Air Weight Weight: 136 lb 10.986 oz Body Mass Index (BMI) 20.2 Physical Exam Const alert and oriented x3 HEENT normocephalic Eyes PERRL Resp normal respiratory effort and normal air movement Cardio regular rate and regular rhythm GI soft to palpation, non-tender and non-distended Extremity normal to inspection Assessment & Plan Assessment/Plan (1) Encounter for screening for malignant neoplasm of colon: PLAN: I explained endoscopy in detail to the patient. I explained the risks including but not limited to stroke or heart attack with anesthesia, perforation of the GI tract, bleeding, infection. I explained that any of these could necessitate further emergency surgery. The patient understands and all questions were answered sufficiently. The patient wishes to proceed with procedure. Constantin John MD Pager: [facility] [address] [place] [address], [address] [place] [address] Office: Surgery Risks - Colonoscopy Risks Include but are not Limited To: Risks include but are not limited to: Bleeding, perforation requiring further surgery, inability to complete colonoscopy requiring barium enema.
--- NOTE | 2025-01-23 09:28 | PCM.PRE.AN2 ---
ASA Classification* ASA Classification ASA Classification: 2 Assessment & Plan Anesthesia* Anesthesia Assessment Anesthesia Assessment: Discussed sedation and/or anesthesia options, risks, benefits, and alternatives with patient/parents/legal guardian/POA. Questions invited. The patient/parents/legal guardian/POA seems to understand and agrees to proceed with anesthesia plan. Reviewed the physical assessment, medical history, allergy history and patient home medications list prior to surgery/procedure/anesthetic and documented any changes. Performed airway and anesthesia risk assessments. Anesthesia Type Anesthesia Type: MAC History Source History Obtained from:: Patient and Chart Anesthesia Focused Assessment* Temperature: 98 F Pulse Rate: 69 Blood Pressure: 122/69 Respiratory Rate: 16 Pulse Ox: 100 Oxygen Delivery Method: Room Air Airway Assessment Mouth opens: >3 cm Mallampati Score: II Teeth Condition: Caps/Crowns (Patient has couple crowns. They are tight.) Neck Range of motion (ROM): Full ROM Labs Anesthesia Preop lab: CBC WBC 6.0 K/mm3 (4.4-11.0) 02/07/23 07:50 02/07/23 RBC 4.25 M/mm3 (4.2-5.4) 02/07/23 07:50 02/07/23 Hgb 11.9 g/dL (12.0-15.0) L 02/07/23 07:50 02/07/23 Hct 37.8 % (37-47) 02/07/23 07:50 02/07/23 Plt Count 272 K/mm3 (150-450) 02/07/23 07:50 02/07/23 CHEMISTRY Potassium 4.6 mmol/L (3.5-5.1) 02/07/23 07:50 02/07/23 Sodium 143 mmol/L (136-145) 02/07/23 07:50 02/07/23 Magnesium 2.1 mg/dL (1.6-2.6) 08/30/21 08:38 08/30/21 BUN 21 mg/dL (7-18) H 02/07/23 07:50 02/07/23 Creatinine 0.94 mg/dL (0.55-1.02) 02/07/23 07:50 02/07/23 Glucose 98 mg/dL (74-106) 02/07/23 07:50 02/07/23 TSH 2.65 uIU/mL (0.358-3.74) 09/11/22 08:43 09/11/22 COAG Urine Test Negative Negative 03/08/18 05:52 03/08/18 Pre-Assessment Diagnosis/Proposed Procedure Planned Operative Procedure(s): COLONOSCOPY Anesthesia History 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 When Was Last Pacemaker Check QUESTION #4 FULL TEXT: You/Your Family Experience fever (hyperthermia) with Anesthesia Last Oral Intake Last Oral intake: Last Oral Intake NPO since 04:00 01/23/25 08:53 Meds taken in AM with sips of No 01/23/25 08:53 water? 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 Female Yes 01/20/25 13:53 HX of Motion Sickness No 01/20/25 13:53 HX of N/V After Surgery No 01/20/25 13:53 Non-Smoker Yes 01/20/25 13:53 Duration of Surgery greater No 01/20/25 13:53 than 60 minutes Number of Risk Factors 2 01/20/25 13:53 PONV Score Moderate Risk 01/20/25 13:53 Height & Weight Height & Weight: Anesthesia: Height & Weight Height 5 ft 9 in 01/23/25 08:53 Weight: 62 kg 01/23/25 08:53 Body Mass Index (BMI) 20.2 01/23/25 08:53 Respiratory Assessment Respiratory Assessment - work distributor: Respiratory Tract Infection Hx - work distributor Hx Respiratory Tract Infection No 01/23/25 09:14 STOP Sleep Apnea STOP Sleep Apnea - work distributor: STOP Sleep Apnea - work distributor Hx Hypertension No 01/23/25 09:14 Hx Sleep Apnea No 01/23/25 09:14 CPAP BIPAP Do you snore loudly (louder No 01/23/25 09:14 than talking or can be heard Do you often feel tired/ No 01/23/25 09:14 fatigued/ sleepy during daytime? Has anyone observed you stop No 01/23/25 09:14 breathing during sleep? STOP Results Negative 01/23/25 09:14 QUESTION #5 FULL TEXT : Do you snore loudly (louder than talking or can be heard through closed doors)? 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 Specify any problems Hx of Preganancy in last 3 No 01/20/25 13:53 Months Nurse Filling Out Transfusion VCHRISTIN 01/20/25 13:53 & Questions: Date: 01/20/25 01/20/25 13:53 Time: 13:54 01/20/25 13:53 Patient unable to answer at this time (ie. 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: /Reproductive Hx- work distributor Hx Now No 01/23/25 09:14 Gestational Age (in weeks): EDC: Hx Hx Para Hx Section SAB No 01/20/25 13:53 Active Medications Active Medications: Current Medications Generic Name Dose Route Start Last Admin Trade Name Freq PRN Reason Stop Dose Admin Lactated Ringer's 1,000 mls @ 15 mls/hr 01/23/25 09:00 01/23/25 09:03 IV 15 mls/hr .Q48H RADHA Administration PFSH Medical History Post-menopausal Wears glasses Wears contact lenses Cancer History of back problems Alcohol use Restless legs Former smoker History of stress test Vitamin deficiency Right foot pain Hot flashes Dysmenorrhea Screening for colon cancer Home Medications ?Medication ?Instructions ?Recorded ?Last Taken ?Type lisdexamfetamine 50 mg capsule 50 mg PO QDAY 02/28/24 Unknown History vit no.95-ferrous 1 tab PO DAILY 01/20/25 Unknown History fumarate 28 mg-folic acid 800 mcg tablet () Allergy/AdvReac Type Severity Reaction Status Date / Time No Known Allergies Allergy Verified 01/23/25 08:55 Family History Mother Hypertension Pacemaker Lung cancer Other CLL (chronic lymphocytic leukemia) Surgical History History of wisdom tooth extraction History of appendectomy Hx of colonoscopy with polypectomy Hx of lumbosacral spine surgery Social History household members: spouse and children current occupational status: employed current occupation: [employer] Smoking Status: Former smoker how long ago did patient quit smoking: quit 6 years ago alcohol intake: current alcohol intake frequency: a few times a month substance use type: does not use what type of physical activity do you participate in: walking frequency: 5-6 times per week seatbelt use: always do you feel safe at home: Yes additional social history: - Mandeep denies edibles, denies vaping,denies marijuana use, denies aspirin use, uses ibuprofen as needed Review of Systems (Anesthesia) ROS Narrative System reviewed and no additional complaints, except as documented.
--- NOTE | 2025-01-23 09:59 | PCM.POSTANE2 ---
Anesthesia Postop Eval I Sum Postop Eval Completion status Anesthesia document: Postop Eval 1 completed: Yes Anesthesia Postop Eval I Summary Anesthesia Postop Eval I Summary: Anesthesia Postop Eval I: Assessment Summary Airway patent Spontaneous unlabored respirations Mental status nausea Vomiting Anesthesia Postop Eval I: Fluid Summary Crystalloid volume administer (ml) Colloids volume administered ( ml) Blood Product volume administered (ml) Total IV fluid infused Anesthesia Postop Eval I: Summary Notes Anesthesia Complication Anesthesia Complication Comment: Post-operative progress note Anesthesia: Postop Eval II Evaluation Mental status: Awake and Calm Pain Level: 0 nausea: No Vomiting: No
--- NOTE | 2025-01-23 10:00 | OP.PROVAT_ITS ---
01/23/2025 Eddi Calderon [facility], Alcoholic Counselor-c Re : Colonoscopy procedure for Martha Dias Dear Kvng This procedure was performed on Thursday, January 23, 2025. My impressions and recommendations are as follows: Impressions : - The entire examined colon is normal on direct and retroflexion views. - No specimens collected. Recommendations : - Discharge patient to home. - Resume previous diet. - Continue present medications. - Repeat colonoscopy in 10 years for screening purposes. My findings are described in the full procedure note, which is enclosed. If I can be of further assistance, please feel free to contact me at Doctor phone number(s): , Work: . Sincerely, Constantin John MD 01/23/2025 9:59:42 AM This report has been signed electronically.
--- NOTE | 2025-01-23 10:00 | OP.COLON_ITS ---
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 Refer to note in patient chart for documentation of history and physical. Last Colonoscopy: 10 years ago. Complications: No immediate complications. Procedure: Pre-Anesthesia Assessment: - Prior to the procedure, a History and Physical was performed, and patient medications and allergies were reviewed. The patient's tolerance of previous anesthesia was also reviewed. The risks and benefits of the procedure and the sedation options and risks were discussed with the patient. All questions were answered, and informed consent was obtained. Prior Anticoagulants: The patient has taken no anticoagulant or antiplatelet agents. After reviewing the risks and benefits, the patient was deemed in satisfactory condition to undergo the procedure. After I obtained informed consent, the scope was passed under direct vision. Throughout the procedure, the patient's blood pressure, pulse, and oxygen saturations were monitored continuously. The colonoscope was introduced through the anus and advanced to the cecum, identified by appendiceal orifice and ileocecal valve. The colonoscopy was performed without difficulty. The patient tolerated the procedure well. The quality of the bowel preparation was good. The ileocecal valve, appendiceal orifice, and rectum were photographed. Scope In: 9:43:11 AM Scope Withdrawal Time 0 hours 6 minutes 16 seconds Scope Out: 9:57:19 AM Total Procedure Duration Time 0 hours 14 minutes 8 seconds Findings: The entire examined colon appeared normal on direct and retroflexion views. Impression: - The entire examined colon is normal on direct and retroflexion views. - No specimens collected. Recommendation: - Discharge patient to home. - Resume previous diet. - Continue present medications. - Repeat colonoscopy in 10 years for screening purposes. Procedure Code(s): --- Professional --- 26645, Colonoscopy, flexible; diagnostic, including collection of specimen(s) by brushing or washing, when performed (separate procedure) Diagnosis Code(s): --- Professional --- Z12.11, Encounter for screening for malignant neoplasm of colon CPT copyright 2021 [employer]. All rights reserved. The codes documented in this report are preliminary and upon rn hedis review may be revised to meet current compliance requirements. Constantin John MD 01/23/2025 9:59:42 AM This report has been signed electronically. Number of Addenda: 0 Note Initiated On: 01/23/2025 9:23 AM
--- NOTE | 2025-01-23 10:05 | PCM.POST.ANE ---
Anesthesia: Postop Eval I Current Vital Signs Temperature: 97 F Pulse Rate: 70 Blood Pressure: 115/69 Respiratory Rate: 16 Pulse Ox: 98 Assessment Airway patent: Yes Spontaneous unlabored respirations: Yes nausea: No Vomiting: No Anesthesia Complication: No Fluid Hydration Crystalloid volume administer (ml): 200 Total IV fluid infused: 200 Progress Note Anesthesia document: Postop Eval 1 completed: Yes
== END 2025-01-23 10:29 | disposition home or self-care (01) ==
LOC: EN 08:45 → AC 08:46
PROVIDERS: PCP Nurse Practitioner Family; Referring Provider Nurse Practitioner Family; Visit Provider Surgery
PROC: 0DJD8ZZ Inspection of Lower Intestinal Tract, Via Natural or Artificial Opening Endoscopic (ICD-10-PCS; CPT 45378; principal; 2025-01-23 09:25)
DX: Z12.11 Encounter for screening for malignant neoplasm of colon (principal); Z87.891 Personal history of nicotine dependence
CPT/HCPCS: 45378